=== PATIENT | male | born 1950 | race Caucasian/White ===

== ENCOUNTER 2024-05-04 09:05 | Emergency (ER) | payer MEDICARE, SELFPAY ==
--- NOTE | ~2024-05-04 | XR_ITS ---
EXAMINATION: XR chest 2V DATE: 05/04/2024 09:52 INDICATION: Cough. TECHNIQUE: Frontal and lateral views of the chest were obtained. COMPARISON: None. FINDINGS: There is no pneumonia, pleural effusion, or pneumothorax. The heart size is normal. A 2 mm foreign body overlies right lower lung zone on the frontal view without correlate on the lateral radi ograph. IMPRESSION: 1. No acute cardiopulmonary disease. Reviewed, dictated and finalized at location A. /AIDS CARE NURSE
[2024-05-04 09:34] VITALS: BP 160/56; PULSE 57; RESP 20; TEMP 36.2; O2SAT 98
--- NOTE | 2024-05-04 10:05 | ED.URI ---
HPI - URI/Sore Throat General Chief Complaint: Upper Respiratory Infection Stated Complaint: congestion Time Seen by Provider: 05/04/24 10:05 Source: patient Mode of arrival: ambulatory Limitations: no limitations History of Present Illness HPI Narrative: 74-year-old male presents with complaint of cough, chest congestion for 8 days. Reports symptoms getting progressively worse with shortness breath on exertion. Has neb treatments from previous time he was sick that he has been doing daily. Taking raas-[id number]-sxutuzl cough medication with no relief. All systems reviewed and negative except as noted above. Related Data Home Medications ?Medication ?Instructions ?Recorded ?Confirmed ?Last Taken ?Type amiodarone 200 mg tablet mg 05/04/24 Unknown History amlodipine 5 mg tablet mg 05/04/24 Unknown History amlodipine 5 mg-benazepril 20 mg cap 05/04/24 Unknown History capsule atorvastatin 40 mg tablet mg 05/04/24 Unknown History rivaroxaban 20 mg tablet (Xarelto) mg 05/04/24 Unknown History triamterene 37.5 tablet 05/04/24 Unknown History mg-hydrochlorothiazide 25 mg tablet Allergies Allergy/AdvReac Type Severity Reaction Status Date / Time No Known Allergies Allergy Verified 05/04/24 09:38 Review of Systems Review of Systems: CONSTITUTIONAL: Denies fever, chills, or sweats. reports fatigue. EYES: Denies visual changes, redness, or discharge. ENT: Denies rhinorrhea, congestion, sore throat, or otalgia. CARDIOVASCULAR: Denies chest pain, palpitations, or edema. RESPIRATORY: Reports cough chest congestion and dyspnea with exertion. GASTROINTESTINAL: Denies abdominal pain, nausea, vomiting, or diarrhea. GENITOURINARY: Denies dysuria or hematuria. SKIN: Denies rash or itching. MUSCULOSKELETAL: Denies back pain, joint pain, or myalgia. NEUROLOGIC: Denies headache, numbness, or weakness. PSYCHIATRIC: Denies anxiety or depression. All other systems reviewed are negative, except as documented in HPI. PMFSH Comments At time of signature, agree with nursing past medical, surgical, social and family history. There is no relevant family history pertinent to the presenting complaint. Exam Narrative: GENERAL: This is a well-nourished, well-developed patient, Patient ill-appearing but in no acute distress HEAD: normocephalic, atraumatic. EYES: PERRL. Sclera clear/white. Vision is grossly intact. EARS: External ears normal, auditory canals clear and without drainage, TMs normal without perforation. Hearing grossly intact. NOSE: External nose normal with no obvious nasal discharge, nares without redness, no rhinorrhea. THROAT: Mucous membranes moist, posterior pharynx clear. NECK: Neck supple, non-tender without lymphadenopathy, masses or thyromegaly. CARDIOVASCULAR: Regular rate and rhythm without murmurs, gallops, or rubs. RESPIRATORY: Crackles throughout all lung walls on auscultation. Breath sounds equal bilaterally. No wheezes, rales, or rhonchi. SKIN: warm, Dry, intact with no suspicious lesions or rash, good texture and turgor. NEURO: awake, alert, and oriented to person, place and time. There were no obvious focal neurologic abnormalities. EXTREMITIES: No joint tenderness, effusion, or edema noted. Course Course Level of Care: Express Care Visit Vital Signs Vital signs: Vital Signs Temperature 36.2 C L 05/04/24 09:34 Pulse Rate 57 L 05/04/24 09:34 Respiratory Rate 20 05/04/24 09:34 Blood Pressure 160/56 H 05/04/24 09:34 Pulse Oximetry 98 05/04/24 09:34 Oxygen Delivery Room Air 05/04/24 09:34 Temperature 36.2 C L 05/04/24 09:34 Pulse Rate 57 L 05/04/24 09:34 Respiratory Rate 20 05/04/24 09:34 Blood Pressure 160/56 H 05/04/24 09:34 Pulse Oximetry 98 05/04/24 09:34 Oxygen Delivery Room Air 05/04/24 09:34 reviewed MDM - URI/Sore Throat MDM Narrative Medical decision making narrative: chest x-ray negative for pneumonia. Will prescribe antibiotic today as precaution due to patient's comorbidities, duration of symptoms and exam findings. Patient is aware of diagnosis, understands and agrees to treatment plan. Anticipatory guidance given. Patient agrees to follow-up as directed and is aware of reasons to seek care at the emergency department. Portions of this record may have been created with voice recognition software Differential Diagnosis Differential diagnosis: Likely upper respiratory infection, sinusitis, viral infection, bronchitis and other ( Pneumonia) Imaging Data My impression: Agree with radiologist Radiologist's impression: EXAMINATION: XR chest 2V DATE: 05/04/2024 09:52 INDICATION: Cough. TECHNIQUE: Frontal and lateral views of the chest were obtained. COMPARISON: None. FINDINGS: There is no pneumonia, pleural effusion, or pneumothorax. The heart size is normal. A 2 mm foreign body overlies right lower lung zone on the frontal view without correlate on the lateral radiograph. IMPRESSION: 1. No acute cardiopulmonary disease. Discharge Plan Discharge Clinical Impression: Acute bronchitis Patient Disposition: Home, Self-Care Condition: Stable Instructions: Antibiotic Form, Acute Bronchitis (ED) Additional Instructions: take medications as prescribed. take [id number] Mucinex as directed on packaging. Place cool mist humidifier in bedroom where you sleep. Take Tylenol every 6-8 hours as needed for pain and fever. Drink at least 64 oz of water a day. Follow-up your primary care physician if symptoms are not improving. Patient Language: Tamazight Prescriptions: New doxycycline hyclate 100 mg capsule 100 mg PO BID 7 Days Qty: 14 0RF benzonatate 200 mg capsule 200 mg PO TID PRN (Reason: cough) Qty: 20 0RF prednisone 20 mg tablet 40 mg PO DAILY 5 Days Qty: 10 0RF albuterol sulfate 90 mcg/actuation HFA aerosol inhaler 2 puff inhalation Q4-6H PRN (Reason: shortness of breath or wheezing) Qty: 8.5 0RF (DME) Aerochamber Plus Z Stat Spacer See Rx Instructions .Route Qty: 1 0RF Rx Instructions: As directed No Action atorvastatin 40 mg tablet amiodarone 200 mg tablet amlodipine 5 mg tablet amlodipine-benazepril 5-20 mg capsule triamterene-hydrochlorothiazid 37.5-25 mg tablet Xarelto 20 mg tablet Follow-up/Referrals: UNKNOWN,DOCTOR [Primary Care Provider] - Time of Disposition: 10:15
--- OUTSIDE RECORDS SUMMARY | 2024-05-11 16:01 | XMS_ITS ---
Author Organization [facility] Address [address] [place] [address] Care Team Providers Care Rehab Director Name Role Phone Patient, Patient Primary Care Provider Mj Flowers [facility] [phone] REASON FOR VISIT Flexible Sigmoidoscopy Encounters Encounter Location Date Provider Diagnosis [facility] [place] [place] [address] [place] [address] 01/29/2024 Mj Noland Radiation proctitis K62.7 Assessments Encounter Date Diagnosis (ICD Code) Assessment Notes Treatment Notes Treatment Clinical Notes Section Notes 01/29/2024 Radiation proctitis (ICD-10 - K62.7) Plan Of Treatment No Information Progress Notes * DANGMARYURI RACHELSDOB:[birth year] (73 yo M)Acc No.[id number]:01/29/2024 Patient:?MARYURI DANG Provider:?Mj Noland MD :1950???Age:73 Y???Sex:Male Gal[place] e:01/29/2024 Address:[address] [place], [place] Pcp:Patient Patient * * [facility] Sign off status: Completed Addendum: * ? true * Provider:?Mj Noland MD Date:? 024 Generated for Printi ng/Faxing/eTransmitting on:?05/11/2024 03:01 PM [facility]
--- OUTSIDE RECORDS SUMMARY | 2024-05-11 16:01 | XMS_ITS ---
Author Organization [facility] Address [address] [place] [address] Care Team Providers Care Privacy Manager Name Role Phone Patient, Patient Primary Care Provider Unavailab M[facility] [phone] Encounters Encounter Location Date Provider Diagnosis [facility] [address] [place] [address] 01/23/2024 Mj Noland Plan Of Treatment No Information Progress Notes * MARYURI DANGSDOB:[birth year] (73 yo M)Acc No.[id number]:01/23/2024 Patient:?DANGMARYURI :1950???Age:73 Y???Sex:Male Address:[address] [place] [address] * true * Date:? Generated for [place] frankie/Sara/eTransmitting on:?05/11/2024 03:01 PM MST
--- OUTSIDE RECORDS SUMMARY | 2024-05-11 16:01 | XMS_ITS | Patient Health Record ---
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 Name Role Phone Patient, Patient Primary Care Provider Mj Flowers Unavailable [phone] Allergies No Known Allergies Reason For Referral No Information Medications Medication SIG (Take, Route, Frequency, Duration) Notes Start Date End Date Status Atorvastatin Calcium 40 MG Oral for 90 Days Active Tamsulosin HCl 0.4 MG Oral for 90 Days Active amLODIPine Besylate 5 MG Oral for 90 Days Active Amiodarone HCl 200 MG Oral for 90 Days Active Vital Signs Height 67 in 02/13/2024 Weight 220 lbs 02/13/2024 BMI 34.45 kg/m2 02/13/2024 Encounters Encounter Location Date Provider Diagnosis [facility] [address] [place] [address] 12/12/2023 Mj Noland Anal pain K62.89 ; Hemorrhoids, internal K64.8 and Hemorrhage of anus and rectum K62.5 [facility] [address] [place] [address] 12/26/2023 Mj Noland Other hemorrhoids K64.8 [facility] [address] [place] [address] 01/16/2024 Mj Noland Other hemorrhoids K64.8 [facility] [address] [place] [address] 01/21/2024 Mj Noland Other hemorrhoids K64.8 ; Radiation proctitis K62.7 ; Anal bleeding K62.5 and External hemorrhoids with complication K64.4 [facility] [address] [place] [address] 01/29/2024 Mj Noland Radiation proctitis K62.7 [facility] [address] [place] [address] 02/13/2024 Mj Noland Radiation proctitis K62.7 [facility] [address] [facility] [place] [address] 01/21/2024 Mj Noland [facility] [address] [place] [address] 01/23/2024 Mj Noland Assessments Encounter Date Diagnosis (ICD Code) Assessment Notes Treatment Notes Treatment Clinical Notes Section Notes 12/26/2023 Other hemorrhoids (ICD-10 - K64.8) Hemorrhoid banding procedure was performed in the office today. Pre-and post procedure instructions were given to the patient. Also patient was advised if the bleeding persists then to follow back and may need a further intervention on a possible colonoscopy evaluation . Patient understands this and all questions were answered. 01/16/2024 Other hemorrhoids (ICD-10 - K64.8) Follow-up hemorrhoid banding procedure was performed in the office today.Consent was obtained verbally. Patient wants to proceed with the follow-up hemorrhoid banding procedure. Pre-and post procedure instructions were given to the patient. Also patient was advised if the bleeding persists then to follow back and may need a further intervention on a possible colonoscopy evaluation . Patient understands this and all questions were answered. 01/21/2024 Radiation proctitis (ICD-10 - K62.7) I have a detailed discussion with the patient and my concern is that the bleeding could be from hemorrhoids or radiation proctitis. I discussed that he may need a flexible sigmoidoscopy and possible argon plasma coagulation for radiation proctitis if any bleeders are seen and also a possible hemorrhoid ligation if the bleeding is noticed from the hemorrhoids. 01/21/2024 Other hemorrhoids (ICD-10 - K64.8) Patient has internal and external hemorrhoids and has failed the medical and conservative management. I have discussed different surgical options with the patient for the hemorrhoids which include banding, excision of hemorrhoids, stapling ,THD Transanal Hemorrhoidal Dearterization . I have discussed the hemorrhoid ligation procedure with the patient. Hemorrhoid ligation can be performed with Hemorrhoid rubber banding or ligation with sutures. Also sometimes hemorrhoid excision may be needed depending upon the size of the hemorrhoid or for any possible intraoperative bleeding and patient understands that. I have discussed that pain is the most common problem after procedure and that may be significant for first one to two weeks and may restrict some activities based on the lifestyle but after that the pain slowly and gradually improves as the symptoms continue to improve. Minimal bleeding is expected and may happen for up to 4 to 6 weeks after surgery and usually up to less than half a cup a day especially after bowel movements. I also advised to continue with the high-fiber diet after hemorrhoidectomy and take some stool softeners which are usually prescribed after the surgery and local lidocaine cream may be required for pain control. Also discussed the possible risks and complications like bleeding, complications and risks from anesthesia, allergic reactions, risk of having a heart or lung problems and need for hospitalization and further management. I have also discussed the other post operative possible complications like anal stenosis and risk of incontinence/Leakag e and possibility of infection and excessive bleeding . If the excessive bleeding happens sometimes the rectal examination under anesthesia or observation in the hospital may be required. Also a detailed handout of the postoperative expectations was given to the patient and all the questions were answered. 12/12/2023 Anal pain (ICD-10 - K62.89) 01/29/2024 Radiation proctitis (ICD-10 - K62.7) 02/13/2024 Radiation proctitis (ICD-10 - K62.7) I discussed the findings with the patient as he had radiation proctitis treated with Argon plasma coagulation.. 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 01/21/2024 Anal bleeding (ICD-10 - K62.5) . 12/12/2023 Hemorrhage of anus and rectum (ICD-10 - K62.5) 01/21/2024 External hemorrhoids with complication (ICD-10 - K64.4) 12/12/2023 Other Patient has internal hemorrhoids and has failed the medical and conservative management and continues to have symptoms. I had a detailed discussion with the patient regarding the hemorrhoids and the management. In my opinion hemorrhoid banding will be a good option for the patient . I have discussed the hemorrhoid banding procedure in detail including follow-up instructions and in my opinion , if the medical management fails, as discussed , then hemorrhoid banding is a more conservative procedure to help relieve the symptoms. I also discussed with the patient that hemorrhoid banding may also fail and patients may continue to have symptoms of bleeding and discomfort and in that case surgical intervention may be required with the excision of the hemorrhoids. Rubber band ligation is the most widely used procedure. It is successful in approximately 70 to 80 percent of patients. Rubber bands or rings are placed around the base of an internal hemorrhoid. As the blood supply is restricted, the hemorrhoid shrinks and degenerates over several days. Many patients report a sense of tightness after the procedure, which may improve with warm sitz baths. Patients are encouraged to use fiber supplements to avoid constipation. Delayed bleeding may occur when the rubber band falls off, usually two to four days after the procedure. In some cases, a raw and sore area develops five to seven days following the procedure. Other less common complications of rubber band ligation include severe pain, thrombosis of other hemorrhoids, and localized infection or pus formation (abscess). Rubber band ligation rarely causes serious complications. I also explained that usually 2 to 3 sessions for the hemorrhoid rubber banding are needed At about three weeks interval. I further gave educational instructions in regards to the hemorrhoids As below and also advise the patient to follow the educational material on my website : Patient has internal hemorrhoids . I have a detailed discussed with the patient regarding the hemorrhoids and different type of hemorrhoids along with the treatment. I advised diet and other lifestyle modifications. My recommendation is to eat at least 30 g of fiber every day and I gave her educational instructions in regards to this. I discussed Different options as below INITIAL HEMORRHOID TREATMENT There are measures you can take at home to relieve hemorrhoid symptoms . One of the most important steps in treating hemorrhoids is avoiding constipation (hard or infrequent stools). Hard stools can also lead to rectal bleeding and/or a tear in the anus, called an anal fissure. In addition, pushing and straining to move your bowels can worsen existing hemorrhoids and increase the risk of developing new hemorrhoids. I advised the patient to do not straying down or sitting longer during the bowel movements. Fiber supplements - Increasing fiber in your diet is one of the best ways to soften your stools. Fiber is found in fruits and vegetables. The recommended amount of dietary fiber is 20 to 35 grams per day . Several fiber supplements are available, including psyllium (sample brand names: Konsyl, Metamucil), methylcellulose (sample brand name: Citrucel), polycarbophil (sample brand name: FiberCon), and wheat dextrin (Benefiber). Start with a small amount and increase slowly to avoid side effects. Laxatives - If increasing fiber does not relieve your constipation, or if side effects of fiber are intolerable, you can try a laxative which are available over the counter As needed . Warm sitz baths - During a sitz bath, you soak the rectal area in warm water for 10 to 15 minutes two to three times daily. Sitz baths are available in most drugstores. It is also possible to use a bathtub and sit in 2 to 3 inches of warm water. Do not add soap, bubble bath, or other additives in the water. Sitz baths work by improving blood flow and relaxing the muscle around the anus, called the internal anal sphincter. Topical treatments - Various creams and suppositories are available to treat hemorrhoids, and many are available without a prescription. Pain-relieving creams and hydrocortisone rectal suppositories may help relieve pain, inflammation, and itching, at least temporarily. You should not use hemorrhoid creams and suppositories, particularly hydrocortisone, for longer time unless advised by the physician.. MINIMALLY INVASIVE TREATMENT If you have bothersome hemorrhoids after using conservative measures, you may want to consider a minimally invasive procedure. Most procedures are performed as a day surgery. The following procedures are intended for treatment of internal hemorrhoids. Rubber band ligation - Rubber band ligation is the most widely used procedure. It is successful in approximately 70 to 80 percent of patients. Rubber bands or rings are placed around the base of an internal hemorrhoid. As the blood supply is restricted, the hemorrhoid shrinks and degenerates over several days. Many patients report a sense of tightness after the procedure, which may improve with warm sitz baths. Patients are encouraged to use fiber supplements to avoid constipation. Delayed bleeding may occur when the rubber band falls off, usually two to four days after the procedure. In some cases, a raw and sore area develops five to seven days following the procedure. Other less common complications of rubber band ligation include severe pain, thrombosis of other hemorrhoids, and localized infection or pus formation (abscess). Rubber band ligation rarely causes serious complications. Laser, infrared, or bipolar coagulation - These methods involve the use of laser or infrared light or heat to destroy internal hemorrhoids. Sclerotherapy - During sclerotherapy, a chemical solution is injected into hemorrhoidal tissue, causing the tissue to break down and form a scar. Sclerotherapy may be less effective than rubber band ligation. HEMORRHOID SURGERY If you continue to have symptoms from hemorrhoids (such as bleeding, pain, or prolapse) despite medical therapies or office-based procedures, you may require surgery. Options for surgical treatment for hemorrhoids include hemorrhoidectomy (surgically removing excess hemorrhoidal tissues), which works for both internal and external hemorrhoids, and other procedures (eg, stapled hemorrhoidopexy and hemorrhoidal arterial ligation), which only work for internal hemorrhoids. This document was created using electronic dictation software ----- Although this document has been reviewed for content accuracy, it may contain errors of spelling and grammar which may inadvertently influence the substance and meaning of the document. Please contact our office if any clarification is needed. 12/26/2023 Other Hemorrhoid Bann ing procedure was performed today in the office and I advise the patient to hold the xarelto for next 3 days and be more cautious while restarting it and if he has any significant leading then he should call me back and stop the Xarelto and if the bleeding is significant then go to the emergency room. 01/21/2024 Other I further discuss the details of the hemorrhoids management and medical and surgical management as below And provided education and also advise the patient to follow at my website for education : . I have a detailed discussed with the patient regarding the hemorrhoids and different type of hemorrhoids along with the treatment. I advised diet and other lifestyle modifications. My recommendation is to eat at least 30 g of fiber every day and I also gave educational instructions in regards to this. Also local medications were prescribed and discussed. I discussed Different options as below INITIAL HEMORRHOID TREATMENT There are measures you can take at home to relieve hemorrhoid symptoms . One of the most important steps in treating hemorrhoids is avoiding constipation (hard or infrequent stools). Hard stools can also lead to rectal bleeding and/or a tear in the anus, called an anal fissure. In addition, pushing and straining to move your bowels can worsen existing hemorrhoids and increase the risk of developing new hemorrhoids. I advised the patient to do not straying down or sitting longer during the bowel movements. Fiber supplements - Increasing fiber in your diet is one of the best ways to soften your stools. Fiber is found in fruits and vegetables. The recommended amount of dietary fiber is 20 to 35 grams per day . Several fiber supplements are available, including psyllium (sample brand names: Konsyl, Metamucil), methylcellulose (sample brand name: Citrucel), polycarbophil (sample brand name: FiberCon), and wheat dextrin (Benefiber). Start with a small amount and increase slowly to avoid side effects. Laxatives - If increasing fiber does not relieve your constipation, or if side effects of fiber are intolerable, you can try a laxative which are available over the counter As needed . Warm sitz baths - During a sitz bath, you soak the rectal area in warm water for 10 to 15 minutes two to three times daily. Sitz baths are available in most drugstores. It is also possible to use a bathtub and sit in 2 to 3 inches of warm water. Do not add soap, bubble bath, or other additives in the water. Sitz baths work by improving blood flow and relaxing the muscle around the anus, called the internal anal sphincter. Topical treatments - Various creams and suppositories are available to treat hemorrhoids, and many are available without a prescription. Pain-relieving creams and hydrocortisone rectal suppositories may help relieve pain, inflammation, and itching, at least temporarily. You should not use hemorrhoid creams and suppositories, particularly hydrocortisone, for longer time unless advised by the physician.. MINIMALLY INVASIVE TREATMENT If you have bothersome hemorrhoids after using conservative measures, you may want to consider a minimally invasive procedure. Most procedures are performed as a day surgery. The following procedures are intended for treatment of internal hemorrhoids. Rubber band ligation - Rubber band ligation is the most widely used procedure. It is successful in approximately 70 to 80 percent of patients. Rubber bands or rings are placed around the base of an internal hemorrhoid. As the blood supply is restricted, the hemorrhoid shrinks and degenerates over several days. Many patients report a sense of tightness after the procedure, which may improve with warm sitz baths. Patients are encouraged to use fiber supplements to avoid constipation. Delayed bleeding may occur when the rubber band falls off, usually two to four days after the procedure. In some cases, a raw and sore area develops five to seven days following the procedure. Other less common complications of rubber band ligation include severe pain, thrombosis of other hemorrhoids, and localized infection or pus formation (abscess). Rubber band ligation rarely causes serious complications. Laser, infrared, or bipolar coagulation - These methods involve the use of laser or infrared light or heat to destroy internal hemorrhoids. Sclerotherapy - During sclerotherapy, a chemical solution is injected into hemorrhoidal tissue, causing the tissue to break down and form a scar. Sclerotherapy may be less effective than rubber band ligation. HEMORRHOID SURGERY Options for surgical treatment for hemorrhoids include hemorrhoidectomy (surgically removing excess hemorrhoidal tissues), which works for both internal and external hemorrhoids, and other procedures (eg, stapled hemorrhoidopexy and hemorrhoidal arterial ligation), which only work for internal hemorrhoids. 02/13/2024 Other This document was created using electronic dictation software ----- Although this document has been reviewed for content accuracy, it may contain errors of spelling and grammar which may inadvertently influence the substance and meaning of the document. Please contact our office if any clarification is needed. Plan Of Treatment No Information Insurance Providers Payer Name Payer Address Payer Phone Subscriber Number Group Number Insured Name Patient Relationship to Insured Coverage Start Date Coverage End Date Medicare Part B [address] [place] [address] [id number] CLAIRE STACY Self - patient is the insured [facility] Medicare Supplement [address] [place] [address] [phone] [id number] PLAN N CLAIRE STACY Self - patient is the insured Medical (General) History Medical History History ICD Code New Patient intake- Medical History: admits to the following: A-fib,bleeding problems,High Cholesterol,Hypertension Cancer: Prostate
--- OUTSIDE RECORDS SUMMARY | 2024-05-11 16:01 | XMS_ITS ---
Author Organization [employer] Address [address] [place] [address] Care Team Providers Care Core Carrier Name Role Phone Patient, Patient Primary Care Provider Unavailab [facility] [phone] Allergies No Known Allergies REASON FOR VISIT Follow Up Medications Medication SIG (Take, Route, Frequency, Duration) Notes Start Date End Date Status Atorvastatin Calcium 40 MG Oral for 90 Days Active Canasa 1000 MG 1 suppository at bed time Rectal Once a day for 30 day(s) 01/21/2024 02/20/2024 Active Tamsulosin HCl 0.4 MG Oral for 90 Days Active amLODIPine Besylate 5 MG Oral for 90 Days Active Amiodarone HCl 200 MG Oral for 90 Days Active Vital Signs Height 67 in 02/13/2024 Weight 220 lbs 02/13/2024 BMI 34.45 kg/m2 02/13/2024 Encounters [facility]counter [facility] [address] [place] [address] 02/13/2024 Mj Noland Radiation proctitis K62.7 Assessments Encounter Date Diagnosis (ICD Code) Assessment Notes Treatment Notes Treatment Clinical Notes Section Notes 02/13/2024 Radiation proctitis (ICD-10 - K62.7) I discussed the findings with the patient as he had radiation proctitis treated with Argon plasma coagulation.. No further surgical intervention is needed 02/13/2024 Other This document was created using electronic dictation software ----- Although this document has been reviewed for content accuracy, it may contain errors of spelling and grammar which may inadvertently influence the substance and meaning of the document. Please contact our office if any clarification is needed. Plan Of Treatment Treatment Notes Assessment Notes Radiation proctitis I discussed the find ings with the patient as he had radiation proctitis treated with Argon plasma coagulation.. No further surgical intervention is needed Other This document was created using electronic dictation software ----- Although this document has been reviewed for content accuracy, it may contain errors of spelling and grammar which may inadvertently influence the substance and meaning of the document. Please contact our office if any clarification is needed. Progress Notes * MARYURI DANGSDOB:[birth year] (73 yo M)Acc No.[id number]:02/13/2024 Progress Notes Patient:?MARYURI DANG S Provider:?Mj Noland MD :1950???Age:73 Y???Sex:Male Galen e:02/13/2024 Address:[facility] [place], [facility] Pcp:Patient Patient Subjective: * Chief Complaints: * ???Follow Up * HPI: ???Follow-up:? Patient presented for follow up. He has no rectal bleeding and has been doing very good. He has no complaints. * ROS:?ColoRectal:?Denies?Weight loss/Gain.?Denies?Fever.?Denies?Fatigue.?Denies?Hearing Change.?Denies?Nose bleeds.?Denies?Visual Change.?Denies?Sore throat.?Denies?Chest Pain.?Denies?Shortness of breath.?Denies?Wheezing.? * Medical History:? * Surgical History:?No Surgica l History documented. * Hospitalization/Major Diagno stic Procedure:?No Hospitalization History. * Family History:?Mother: Hear t Disease,High Cholesterol,Diabetes.?Father: Heart Disease,High Cholesterol.?Siblings: Heart Disease,High Cholesterol.? Denies family h/o Colon/Rectal cancer. * Social History:?Social Questions Intake:?Tobacco Use: current. Alcohol Use: current. Have you used drugs for anything other than medical reason in the past 12 mo?: No. Do you use Marijuana?: None. * Medications:?TakingAmiodaron e HCl 200 MG Tablet Oral Tamsulosin HCl 0.4 MG Capsule Oral amLODIPine Besylate 5 MG Tablet Oral Atorvastatin Calcium 40 MG Tablet Oral Canasa 1000 MG Suppository 1 suppository at bedtime Rectal Once a day, stop date 02/20/2024Medication List reviewed and reconciled with the patientTaking Amiodarone HCl 200 MG Tablet Oral Taking Tamsulosin HCl 0.4 MG Capsule Oral Taking amLODIPine Besylate 5 MG Tablet Oral Taking Atorvastatin Calcium 40 MG Tablet Oral Taking Canasa 1000 MG Suppository 1 suppository at bedtime Rectal Once a day, stop date 02/20/2024Medication List reviewed and reconciled with the patient * Allergies:?N.K.D.A.no[Allerg ies Verified] * Implants:? Objective: * Vitals:?Ht: 67 in, Wt:220 lb s, BMI:34.45 Index. 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 non-labored respirations .?ABDOMEN:?soft, nontender, nondistended, no masses palpable.?INCISION:?..?RECTAL?..?MUSCULOSKELETAL:?no swelling or deformity.?EXTREMITIES:?no clubbing, cyanosis, or edema.?NEUROLOGIC:?nonfocal, alert and oriented, gait normal.?PSYCH:?alert, oriented, good eye contact, mood/affect full range.? Assessment: * Assessment: 1.?Radiation proctitis - K62 .7 (Primary)? Plan: * Treatment: 2.?Others? Notes: This document was created using electronic dictation software ----- Although this document has been reviewed for content accuracy, it may contain errors of spelling and grammar which may inadvertently influence the substance and meaning of the document. Please contact our office if any clarification is needed. ?? * Procedure Codes:? * Preventive Medicine:? ??MIPS:?Smoking?Type of Tobacco Use Cessation Counseling provided?Smoking cessation education.? * * [facility] Sign off status: Completed true * Provider:?Mj Noland MD Date:? 024 Generated for Oh david/Sara/Keila on:?05/11/2024 03:01 PM [facility] History and Physical Notes * HPI (History of Present Illness) Category Sub-Category Detail Notes Category Not es Follow-up Patient present ed for follow up. He has no rectal bleeding and has been doing very good. 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 PSYCH: alert, oriented, goo d eye contact, mood/affect full range ORAL CAVITY: INCISION: . HEENT Normal cephalic , At raumatic
--- OUTSIDE RECORDS SUMMARY | 2024-05-11 16:02 | XMS_ITS | Clinical Summary ---
Author Organization [facility] Address Unknown Care Team Providers Care Business Analytics Specialist Name Role Phone Unavailable Primary Care Physician Unavailab le Medications Medication Dose Frequency Directions Start Date End Galen e Xarelto 90 amlodipine-benazepril 90 amiodarone 90 triamterene-hydrochlorothiazid 36 atorvastatin 90 Problems Problem Status Start Date End Date Change in bowel habits (R19.4 - ICD-10) Active Rectal bleeding (K62.5 - ICD-10) Active asthma (null - null) Atrial Fibrillation (I48.91 - ICD-10) Hyperlipidemia (E78.5 - ICD-10) hypertension (I10 - ICD-10) Prostate Cancer (D07.5 - ICD-10) Encounters Encounter Performer Performer Role Encounter Diagnoses Location Date Ambulatory Encounter [id number] - Amor Sonido [address] 8 12:05 pm PST Ambulatory Encounter [id number] Sonido Wan [facility] 9 11:23 am PST Ambulatory Encounter [id number] Sonido Wan [id number] - Francia Omalley [facility] 4 01:54 pm PDT First Visit [id number] - Javier White Change in bowel habits Rectal bleeding [facility] 4 09:00 am PDT Procedures Procedure Date knee Pre-Procedure Call 10/02/2023 12:00 am PDT Plan of Care Planned Activity Planned Date Miralax-Gatorade Preparation Instruction s Risks and benefits statement: This patient has been evalua janet and is a candidate for an Outpatient Surgery Center. Colonoscopy Social History Observation Value Start Date End Date Marital Status Number of Previous Marriages Number of Gestations 0 Number of Pregnancies 0 Number of Abortions 0 Tobacco Use Vital Signs Vital Sign Reading Time Taken Pulse 75 /min 10/01/2023 09:22 am PDT Rhythm Regular 10/01/2023 09:22 am PDT Body Temperature 98.4 [degF] 10/01/2023 09:2 2 am PDT Respirations /min 10/01/2023 09:22 am PDT Oxygen saturation % 10/01/2023 09: 22 am PDT [id number] mmHg 10/01/2023 09:22 am PDT Height 67 in 10/02/2023 01:54 pm PDT Weight 0 lbs 10/02/2023 01:54 pm PDT BMI (Body Mass Index) kg/m2 10/02/2023 01:54 pm PDT BP Systolic 166 mm[hg] 10/01/2023 09:22 am PDT BP Diastolic 72 mm[hg] 10/01/2023 09:22 am PDT Insurances Policy / Member / Group Numbers Plan Details Company Policy Gregory [id number] / / Plan Type:[facility] Coverage Type:Primary Medicare [place] [id number] [address] [id number] / / Plan Type:MCRSUP Coverage Type:Secondary [facility] Medicare Supplement [id number] [address]
--- OUTSIDE RECORDS SUMMARY | 2024-05-11 16:02 | XMS_ITS | Encounter Summary ---
Author Organization [facility] Address [address] [place] [address] Care Team Providers Care Records Management Analyst Name Role Phone Lanre Burrell MD Primary Care Provider [phone] Encounter Details Date Type Department Care Team (Late st Contact Info) Description 12/20/2022 Orders Only RADIOLOGY VIEW ONLY [address] [place] [address] [place] [address] [place], [place] [id number] Social History Tobacco Use Types Packs/Day Years Used Date Smoking Tobacco: Former Cigarettes Q uit: 09/17/1998 Alcohol Use Standard Drinks/Week Comments Yes 0 (1 standard drink = 0.6 oz pur e alcohol) 2-3 GLASSES WINE/WEEK Sex and Gender Information Value Date Recorded Sex Assigned at Not on file Gender Identity Not on file Sexual Orientation Not on file documented as of this encounter Plan of Treatment Not on file documented as of this encounter Procedures Procedure Name Priority Date/Time Associated Diagnosis Comments PET EXTERNAL RESULT 12/20/2022 1 1:00 AM [facility] documented in this encounter Results * PET External Result (12/20/2022 11:00 AM [facility]) Anatomical Region Laterality Modality Nuclear Medicine 12/20/2022 1:05 PM [facility] Impressions 12/20/2022 1:05 PM [facility] IMPRESSION: 1. Stable to slightly increased nonspecific low level tracer activity in the prostate with numerous brachytherapy seeds present. 2. No evidence of tracer avid regional nodes or distant metastases. Stable size of left upper retroperitoneal soft tissue density nodule or lymph node devoid of tracer uptake. ORDERED BY: SAMANTHA CASTILLO, [id number] Performed at [facility] ??Electronically signed by Dr. MANUEL ELLINGTON MD SMIL ID: [id number] Date of Service: 12/20/2022 Narrative 12/20/2022 1:05 PM [facility] PET/CT BODY SCAN F-18 PIFLUFOLASTAT HISTORY: Prostate cancer. COMPARISON: PET/CT 01/04/2022 TECHNIQUE: A PET/CT study was performed from the head to the mid thigh after the intravenous administration of 9.4 mCi F-18 Pylarify, approximately 60 minute uptake time. The CT portion of the PET/CT study was used for the purposes of attenuation correction and image fusion only, and is not to be considered equivalent to a dedicated diagnostic CT scan. Radiopharmaceutical: 9.4 mCi F18 IV : PYLARIFY FINDINGS: HEAD No suspicious intracranial tracer uptake. No enlarged or tracer avid lymph nodes in the neck. Lack of normal tracer uptake in the left parotid gland. Otherwise, normal glandular tracer biodistribution. Nonspecific low-level tracer uptake associated with the left face on image 56, decreased from prior exam and without definitive anatomic correlate. CHEST: No tracer avid pulmonary nodules or masses. No tracer avid or enlarged thoracic lymph nodes. Heart size is top normal. No focal infiltrate or pleural effusion. ABDOMEN Stable size of soft tissue density nodule or node in the upper retroperitoneum, measuring about 0.9 cm and devoid of tracer uptake. No enlarged or tracer avid lymph nodes in the abdomen or pelvis. Low-level nonspecific tracer activity is again seen in the prostate with SUV max of 3.9 on image 275, previously 3, with brachytherapy seeds again noted throughout the gland. Otherwise normal tracer biodistribution in the abdomen and pelvis. Diverticulosis without evidence of acute diverticulitis. MUSCULOSKELETAL AND EXTREMITIES: No tracer avid or other suspicious osseous lesions. Multilevel degenerative changes of the cervical and lumbar spine. Procedure Note RADIOLOGY EXTERNAL READS - 12/20/2022 PET/CT BODY SCAN F-18 PIFLUFOLASTAT HISTORY: Prostate cancer. COMPARISON: PET/CT 01/04/2022 TECHNIQUE: A PET/CT study was performed from the head to the mid thighafter the intravenous administration of 9.4 mCi F-18 Pylarify, approximately 60minute uptake time. The CT portion of the PET/CT study was used for the purposes ofattenuation correction and image fusion only, and is not to be considered equivalent to adedicated diagnostic CT scan. Radiopharmaceutical: 9.4 mCi F18 IV : PYLARIFY FINDINGS: HEAD No suspicious intracranial tracer uptake. No enlarged or tracer avid lymphnodes in the neck. Lack of normal tracer uptake in the left parotid gland. Otherwise,normal glandular tracer biodistribution. Nonspecific low-level tracer uptake associatedwith the left face on image 56, decreased from prior exam and without definitive anatomiccorrelate. CHEST: No tracer avid pulmonary nodules or masses. No tracer avid or enlargedthoracic lymph nodes. Heart size is top normal. No focal infiltrate or pleuraleffusion. ABDOMEN Stable size of soft tissue density nodule or node in the upperretroperitoneum, measuring about 0.9 cm and devoid of tracer uptake. No enlarged or tracer avid lymphnodes in the abdomen or pelvis. Low-level nonspecific tracer activity is again seen inthe prostate with SUV max of 3.9 on image 275, previously 3, with brachytherapy seedsagain noted throughout the gland. Otherwise normal tracer biodistribution in theabdomen and pelvis. Diverticulosis without evidence of acute diverticulitis. MUSCULOSKELETAL AND EXTREMITIES: No tracer avid or other suspicious osseous lesions. Multileveldegenerative changes of the cervical and lumbar spine. IMPRESSION: 1. Stable to slightly increased nonspecific low level tracer activity inthe prostate with numerous brachytherapy seeds present. 2. No evidence of tracer avid regional nodes or distant metastases. Stablesize of left upper retroperitoneal soft tissue density nodule or lymph node devoid oftracer uptake. ORDERED BY: SAMANTHA CASTILLO, [id number] Performed at [facility] Electronically signed by Dr.TREVOR RKAEL [facility] ID: [id number] Date of Service: 12/20/2022 Samantha Castillo MD IMG NM ORDERABL ES documented in this encounter Visit Diagnoses Not on filedocumented in this encounter Care Teams Records Management Analyst Relationship Specialty Start Date End Date Lanre Burrell MD PCP - General Internal Medicine 09/24/16 documented as of this encounter
--- OUTSIDE RECORDS SUMMARY | 2024-05-11 16:02 | XMS_ITS | Clinical Summary ---
Author Organization [facility] Address Unknown Care Team Providers Care Taper Machine Name Role Phone Unavailable Primary Care Physician Unavailab le Medications Medication Dose Frequency Directions Start Date End Galen e Xarelto 90 amlodipine-benazepri l 90 amiodarone 90 triamterene-hydrochl orothiazid 36 Anucort-HC 20 suppository at bedtime Insert 1 suppository into rectum at bedtime 10/14/2023 atorvastatin 90 Problems Problem Status Start Date End Date Change in bowel habits (R19.4 - ICD-10) Active Diverticulosis of large inte marianela without perforation or abs (K57.30 - ICD-10) Active 10/10/2023 Evaluation of unexplained GI bleeding (null - null) Ac tive 10/10/2023 Other specified diseases of intestine (K63.89 - ICD-10 ) Active 10/10/2023 Polyp of colon (K63.5 - ICD-10) Active Rectal bleeding (K62.5 - ICD-10) Active asthma (null - null) Atrial Fibrillation (I48.91 - ICD-10) Hyperlipidemia (E78.5 - ICD-10) hypertension (I10 - ICD-10) Prostate Cancer (D07.5 - ICD-10) Results * [facility] Pathology Component Value Range Date 10/10/2023 12:0 0 am PDT Encounters Encounter Performer Performer Role Encounter Diagnoses Location Date Ambulatory Encounter [id number] - Sonido Chinchilla [address] 8 12:05 pm PST Ambulatory Encounter [id number] - Sonido Chinchilla [address] 9 11:23 am PST Ambulatory Encounter [id number] - Sonido Chinchilla [id number] - Francia Omalley [facility] 4 01:54 pm PDT First Visit [id number] - Javier White Change in bowel habits Rectal bleeding [address] 4 09:00 am PDT Colonoscopy [id number] - Christopher Javier Diverticulosis of large intestine without perforation or abs Evaluation of unexplained GI bleeding Other specified diseases of intestine Polyp of colon [facility] 4 08:00 am PDT Advance Directives Directive Description Verification Lina Silvestre , 10/10/2023 Procedures Procedure Date cardioversion knee scope Pre-Procedure Call 10/02/2023 12:00 am PDT Plan of Care Planned Activity Planned Date Resume taking current medications Please call office if not no tified of biopsy results in one week. Miralax-Gatorade Preparation Instruction s Risks and benefits statement: Written discharge instructions were prov ided to the patient The signs and symptoms of po tential delayed complications were discussed with the patient Patient will be discharged to home This patient has been george gonzales and is a candidate for an Outpatient Surgery Center. Pathology Requisition - [facility] Return to normal activities tomorrow Resume previous diet as tolerated Follow-up with me as needed Colonoscopy in 5 years 10/09/2028 12:00 am PDT Colonoscopy Social History Observation Value Start Date End Date Marital Status Number of Previous Marriages Number of Gestations 0 Number of Pregnancies 0 Number of Abortions 0 Tobacco Use Vital Signs Vital Sign Reading Time Taken Pulse 55 /min 10/10/2023 08:32 am PDT Rhythm Regular 10/10/2023 08:32 am PDT Body Temperature [degF] 10/10/2023 08:3 2 am PDT Respirations 18 /min 10/10/2023 08:32 am PDT Oxygen saturation 96 % 10/10/2023 08: 32 am PDT [id number] mmHg 10/10/2023 08:32 am PDT Height 67 in 10/10/2023 06:44 am PDT Weight 252 lbs 10/10/2023 06:44 am PDT BMI (Body Mass Index) kg/m2 10/10/2023 06:44 am PDT BP Systolic 161 mm[hg] 10/10/2023 08:32 am PDT BP Diastolic 72 mm[hg] 10/10/2023 08:32 am PDT Insurances Policy / Member / Group Numbers Plan Details Company Policy Gregory [id number] / / Plan Type:MCR Coverage Type:Primary Medicare [place] [id number] [address] [id number] / / Plan Type:MCRSUP Coverage Type:Secondary UHC AARP Medicare Supplement [id number] [address]
--- OUTSIDE RECORDS SUMMARY | 2024-05-11 16:02 | XMS_ITS | Encounter Summary ---
Author Organization [facility] Address [address] [place] [address] Care Team Providers Care Power Station Operator Name Role Phone Lanre Burrell MD Primary Care Provider [phone] Reason for Referral * Ultrasound (Routine) - Closed Specialty Diagnoses / Procedures Referred By Mary t Referred To Contact Diagnoses Malignant neoplasm of prostate Procedures US Guided Intraoperative Study [facility] ULTRASONIC GUIDANCE, INTRAOPERATIVE Junior Ahumada MD [address] [place] [address] Referral ID Status Reason Start Date Expiration Date Visits Re quested Visits Authorized [id number] Closed 09/02/2016 03/01/2017 1 [facility] Encounter Details Date Type Department Care Team (Latest Contact Info) Description 09/02/2016 Transcribe Orders [facility] [address] [place], [place] [id number] Junior Ahumada MD [address] [place] [address] Malignant neoplasm of prostate (Primary Dx) Social History Tobacco Use Types Packs/Day Years Used Date Smoking Tobacco: Never Assessed Sex and Gender Information Value Date Recorded Sex Assigned at Not on file Gender Identity Not on file Sexual Orientation Not on file documented as of this encounter Plan of Treatment Not on file documented as of this encounter Results * US Guided Intraoperative Study (09/24/2016 10:58 AM [facility]) Anatomical Region Laterality Modality Ultrasound 09/24/2016 1:42 PM MST Narrative 09/24/2016 1:43 PM [facility] ULTRASOUND INTRAOPERATIVE STUDY HISTORY: ??Prostate cancer COMPARISON: ??None TECHNIQUE: ??Ultrasound guidance was provided in the operating room. FINDINGS: Ultrasound guidance was provided to performed implantation of brachytherapy seeds. ?? Procedure Note Michela Rodgers MD - 09/24/2016 ULTRASOUND INTRAOPERATIVE STUDY HISTORY: Prostate cancer COMPARISON: None TECHNIQUE: Ultrasound guidance was provided in the operating room. FINDINGS: Ultrasound guidance was provided to performed implantation ofbrachytherapy seeds. Junior Ahumada MD IMG US ORDERABLES documented in this encounter Visit Diagnoses Diagnosis Malignant neoplasm of prostate- Primary Malignant neoplasm of prostate documented in this encounter Care Teams Power Station Operator Relationship Specialty Start Date End Date Lanre Burrell MD PCP - General Internal Medicine 09/24/16 documented as of this encounter
--- OUTSIDE RECORDS SUMMARY | 2024-05-11 16:02 | XMS_ITS | Clinical Summary ---
Author Organization [facility] Address Unknown Care Team Providers Care Digital Advertising Analyst Name Role Phone Unavailable Primary Care Physician [...] Polyp of colon (K63.5 - ICD-10) Active 4 Rectal bleeding (K62.5 - ICD-10) Active asthma (null - null) Atrial Fibrillation (I48.91 - ICD-10) Hyperlipidemia (E78.5 - ICD-10) hypertension (I10 - ICD-10) Prostate Cancer (D07.5 - ICD-10) Encounters Encounter Performer Performer Role Encounter Diagnoses Location Date Ambulatory Encounter [id number] Sonido Wan [address] 8 12:05 pm PST Ambulatory Encounter [id number] Sonido Wan [address] 9 11:23 am PST Ambulatory Encounter [id number] Sonido Wan [id number] - Francia Omalley [facility] 4 01:54 pm PDT First Visit [id number] Javier Hinkle Change in bowel habits Rectal bleeding [facility] 4 09:00 am PDT Colonoscopy [id number] Trujillo Diverticulosis of large intestine without perforation or abs Evaluation of unexplained GI bleeding Other specified diseases of intestine Polyp of colon [facility] 08:00 am PDT Advance Directives Directive Description [...] Pathology The patient has a contact number availab norris for emergencies Return to normal activities tomorrow Resume previous diet as tolerated Follow-up with me as needed Colonoscopy in 5 years 10/09/2028 12:00 am PDT Colonoscopy Social History Observation Value Start Date End Date Marital Status Number of Previous Marriages Number of Gestations 0 Number of Pregnancies 0 Number of Abortions 0 Tobacco Use Vital Signs Vital Sign Reading Time Taken Pulse 57 /min 10/10/2023 08:12 am PDT Rhythm Regular 10/10/2023 08:12 am PDT Body Temperature [degF] 10/10/2023 08:1 2 am PDT Respirations 16 /min 10/10/2023 08:12 am PDT Oxygen saturation 95 % 10/10/2023 08: 12 am PDT [id number] mmHg 10/10/2023 08:12 am PDT Height 67 in 10/10/2023 06:44 am PDT Weight 252 lbs 10/10/2023 06:44 am PDT BMI (Body Mass Index) kg/m2 10/10/2023 06:44 am PDT BP Systolic 142 mm[hg] 10/10/2023 08:12 am PDT BP Diastolic 71 mm[hg] 10/10/2023 08:12 am PDT Insurances Policy / Member / Group Numbers Plan Details Company Policy Gregory [id number] / / Plan Type:MCR Coverage Type:Primary Medicare [place] [address] [address] [id number] / / Plan Type:MCRSUP Coverage Type:Secondary [facility] Medicare Supplement [id number] [address]
--- OUTSIDE RECORDS SUMMARY | 2024-05-11 16:02 | XMS_ITS | Clinical Summary ---
Author Organization [facility] Address Unknown Care Team Providers Care Print Washer Name Role Phone Unavailable Primary Care Physician Unavailab le Medications Medication Dose Frequency Directions Start Date End Galen e Xarelto 90 amlodipine-benazepril 90 amiodarone 90 triamterene-hydrochlorothiazid 36 atorvastatin 90 Problems Problem Status Start Date End Date Change in bowel habits (R19.4 - ICD-10) Active Rectal bleeding (K62.5 - ICD-10) Active Atrial Fibrillation (I48.91 - ICD-10) Hyperlipidemia (E78.5 - ICD-10) hypertension (I10 - ICD-10) Prostate Cancer (D07.5 - ICD-10) Encounters Encounter Performer Performer Role Encounter Diagnoses Location Date Ambulatory Encounter [id number] - Sonido Chinchilla SPB-Dykflcl-Mu [facility] 05/29/2017 12:05 pm [facility] Ambulatory Encounter [id number] - Sonido Chinchilla RCL-Jzuddrf-Ef [facility] 07/06/2018 11:23 am PST First Visit [id number] - Javier White Change in bowel habits Rectal bleeding EIR-Ufslxwo-Be [facility] 10/01/2023 09:00 am PDT Chief Complaint blood in stool Review Of Systems Gastrointestinal: Complains of bloo d in stool . Denies of abdominal pain, change in bowel habits, constipation, diarrhea, bloating/gas, heartburn/reflux, nausea, vomiting, difficulty swallowing, anorectal pain/itching, incontinence of stool, black tarry stools. Genitourinary: Complains of bloo d in urine . Denies of dark urine, frequent urinary infections, frequent urination. Integumentary: Denies of itching, jaundice, rashes. Cardiovascular: Denies of chest nellie n, irregular heart beat, palpitations, peripheral edema, heart murmur. Constitutional: Denies of fatigue, fever, loss of appetite, night sweats, weight gain, weight loss, chills. Psychiatric: Denies of anxiety, depression. ENMT: Denies of sore thro at, eye irritation, eye pain, eye redness, hoarseness, mouth sores. Hematologic/Lymphatic: Complains of e asy bruising . Denies of prolonged bleeding. Respiratory: Denies of cough, wh eezing, snoring, shortness of breath. Physical Exam Constitutional: Appearance: Skin: Inspection: Eyes: Conjunctivae/lids: Pupils/irises: symmetrical. ENMT: Lips/teeth/gums: Oropharynx: normal tongue, hard and soft palate; no oral lesions. Neck: Neck: Thyroid: normal size, consist ency and position, no masses or tenderness. Respiratory: Effort: Auscultation: normal bilateral linnea ath sounds, no rubs, wheezes, rales or rhonchi. Cardiovascular: Auscultation: Peripheral: no edema, no cyanosi s. Gastrointestinal/Abdomen: Abdomen: Liver/Spleen: no splenomegaly, no hepatomegaly. Musculoskeletal: Gait/station: Digits/nails: no clubbing, no cyan osis. Psychiatric: Judgment/insight: Memory: within normal limits for recent and remote events. Mood and affect: no evidence of depre ssion, anxiety or agitation. Orientation: to time, place and p erson. Lymphatic: Neck: Other: no supraclavicular lymphadenopathy. Neurologic: Sensation: Inspection: grossly normal. Other: chaperoned by: Plan of Care Planned Activity Planned Date [...] saturation % 10/01/2023 09: 22 am PDT [id number] mmHg 10/01/2023 09:22 am PDT Height 67 in 10/01/2023 09:22 am PDT Weight 252 lbs 10/01/2023 09:22 am PDT BMI (Body Mass Index) 39.46 kg/m2 10/01/2023 09:22 am PDT BP Systolic 166 mm[hg] 10/01/2023 09:22 am PDT BP Diastolic 72 mm[hg] 10/01/2023 09:22 am PDT Insurances Policy / Member / Group Numbers Plan Details Company Policy Gregory [id number] / / Plan Type:[facility] Coverage Type:Primary Medicare [place] [address] [address] [id number] / / Plan Type:[facility] Coverage Type:Secondary UHC AARP Medicare Supplement [id number] [address]
--- OUTSIDE RECORDS SUMMARY | 2024-05-11 16:02 | XMS_ITS | Encounter Summary ---
Author Organization [facility] Address [address] [place] [address] Care Team Providers Care Creative Coordinator Name Role Phone Lanre Burrell MD Primary Care Provider [phone] Encounter Details Date Type Department Care Team (Late st Contact Info) Description 02/19/2017 Ancillary Orders [facility] Nuclear Medicine [address] [place] [address] Junior Ahumada MD [address] [facility] [address] [place], [place] [phone] Prostate cancer Social History Tobacco Use Types Packs/Day Years [...] on file documented as of this encounter Visit Diagnoses Diagnosis Prostate cancer Malignant neoplasm of prostate documented in this encounter Care Teams Creative Coordinator Relationship Specialty Start Date End Date Lanre Burrell MD PCP - General Internal Medicine 09/24/16 documented as of this encounter
--- OUTSIDE RECORDS SUMMARY | 2024-05-11 16:02 | XMS_ITS | Encounter Summary ---
Author Organization [facility] Address [address] [place] [address] Care Team Providers Care Coagulant Dipper Name Role Phone Lanre Burrell MD Primary Care Provider [phone] Encounter Details Date Type Department Care Team (Late st Contact Info) Description 03/12/2024 Orders Only RADIOLOGY VIEW ONLY [address] [place] [address] [place] [address] [place], [place] [id number] Social History Tobacco Use Types Packs/Day Years [...] Date/Time Associated Diagnosis Comments PET EXTERNAL RESULT 03/11/2024 1 1:45 AM [facility] documented in this encounter Results * PET External Result (03/11/2024 11:45 AM [facility]) Anatomical Region Laterality Modality Nuclear Medicine 03/12/2024 9:25 AM MST Impressions 03/12/2024 9:25 AM [facility] IMPRESSION: No findings convincing for FDG avid malignancy. ORDERED BY: SAMANTHA CASTILLO, [id number] Performed at [facility] ??Electronically signed by Dr. LEENA MELENDEZ MD SMIL ID: [id number] Date of Service: 03/11/2024 Narrative 03/12/2024 9:25 AM [facility] PET/CT SCAN HISTORY: Prostate cancer. Restaging. COMPARISON: PET/CT 01/05/2024 (piflufolastat) TECHNIQUE: A PET/CT study was performed from the head to the mid thigh after the intravenous administration of 10.1 mCi F-18 FDG at a blood glucose level of 98 mg/dL. [address] portion of the PET/CT examination was used for the purposes of attenuation correction and anatomic localization only and does not constitute a dedicated CT scan. FINDINGS: No FDG avid disease in the neck. No FDG avid thoracic lymphadenopathy. No FDG avid pulmonary lesions. Subpleural left upper lobe nodule (image 120) is stable and below the size threshold for reliable evaluation by PET. Previously depicted right lower lobe nodule is relatively inconspicuous, perhaps due to respiratory motion. Evidence of prior granulomatous infection. Below the diaphragm, tracer activity is physiologic. Minor fatty replacement of pancreatic parenchyma. Multiple colonic diverticula. Brachytherapy seeds within the prostate gland. Mild diffuse bladder wall thickening. No FDG avid skeletal lesions. Procedure Note Leena Melendez MD - 03/12/2024 PET/CT SCAN HISTORY: Prostate cancer. Restaging. COMPARISON: PET/CT 01/05/2024 (piflufolastat) TECHNIQUE: A PET/CT study was performed from the head to the mid thighafter the intravenous administration of 10.1 mCi F-18 FDG at a blood glucose levelof 98 mg/dL. [address] portion of the PET/CT examination was used for thepurposes of attenuation correction and anatomic localization only and does notconstitute a dedicated CT scan. FINDINGS: No FDG avid disease in the neck. No FDG avid thoracic lymphadenopathy. No FDG avid pulmonary lesions.Subpleural left upper lobe nodule (image 120) is stable and below the size threshold forreliable evaluation by PET. Previously depicted right lower lobe nodule isrelatively inconspicuous, perhaps due to respiratory motion. Evidence of priorgranulomatous infection. Below the diaphragm, tracer activity is physiologic. Minor fattyreplacement of pancreatic parenchyma. Multiple colonic diverticula. Brachytherapy seedswithin the prostate gland. Mild diffuse bladder wall thickening. No FDG avid skeletal lesions. IMPRESSION: No findings convincing for FDG avid malignancy. ORDERED BY: SAMANTHA CASTILLO, [id number] Performed at [facility] Electronically signed by Dr. DRAKE LANTIGUA [facility] ID: [id number] Date of Service: 03/11/2024 Samantha Castillo MD IMG NM ORDERABL ES documented in this encounter Visit Diagnoses Not on filedocumented in this encounter Care Teams Coagulant Dipper Relationship Specialty Start Date End Date Lanre Burrell MD PCP - General Internal Medicine 09/24/16 documented as of this encounter
--- OUTSIDE RECORDS SUMMARY | 2024-05-11 16:02 | XMS_ITS | Clinical Summary ---
Author Organization [facility] Address Unknown Care Team Providers Care Tow Bar Driver Name Role Phone Unavailable Primary Care Physician [...] Role Encounter Diagnoses Location Date Ambulatory Encounter [id number] - Amor Sonido [address] 8 12:05 pm PST Ambulatory Encounter [id number] Sonido Wan [facility] 9 11:23 am PST Ambulatory Encounter [id number] Sonido Wan [id number] - Francia Omalley [facility] 4 01:54 pm PDT First Visit [id number] - Javier White Change in bowel habits Rectal bleeding [facility] [facility] 4 09:00 am PDT Procedures Procedure Date knee Pre-Procedure Call 10/02/2023 12:00 am PDT Review Of Systems Plan of Care Planned Activity Planned Date [...] saturation % 10/01/2023 09: 22 am PDT [id number] mmHg 10/01/2023 09:22 am PDT Height 67 in 10/02/2023 01:54 pm PDT Weight 0 lbs 10/02/2023 01:54 pm PDT BMI (Body Mass Index) kg/m2 10/02/2023 01:54 pm PDT BP Systolic 166 mm[hg] 10/01/2023 09:22 am PDT BP Diastolic 72 mm[hg] 10/01/2023 09:22 am PDT Insurances Policy / Member / Group Numbers Plan Details Company Policy Gregory [id number] / / Plan Type:[facility] Coverage Type:Primary Medicare [place] [address] [address] [id number] / / Plan Type:MCRSUP Coverage Type:Secondary [facility] Medicare Supplement [id number] [address]
--- OUTSIDE RECORDS SUMMARY | 2024-05-11 16:02 | XMS_ITS | Clinical Summary ---
Author Organization [facility] Address Unknown Care Team Providers Care Entry Analyst Name Role Phone Unavailable Primary Care [...] Role Encounter Diagnoses Location Date Ambulatory Encounter [id number] - Amor Sonido L[address] 8 12:05 pm PST Ambulatory Encounter [id number] Kristie Amor Sonido DWX-Hxgijww[address] 9 11:23 am PST Ambulatory Encounter [id number] Kristie Amor Sonido [id number] - Francia Omalley [facility] 4 01:54 pm PDT First Visit [id number] - Javier White Change in bowel habits Rectal bleeding [facility]-[address] 4 09:00 am PDT Ambulatory Encounter [id number] Javier Hinkle [facility] 4 08:00 am PDT Advance Directives Directive Description Verification Lina Silvestre , 10/10/2023 Procedures Procedure Date knee Pre-Procedure Call 10/02/2023 [...] Signs Vital Sign Reading Time Taken Pulse 69 /min 10/10/2023 07:39 am PDT Rhythm Regular 10/10/2023 07:39 am PDT Body Temperature 97.5 [degF] 10/10/2023 07:3 9 am PDT Respirations 16 /min 10/10/2023 07:39 am PDT Oxygen saturation 96 % 10/10/2023 07: 39 am PDT [id number] mmHg 10/10/2023 07:39 am PDT Height 67 in 10/10/2023 06:44 am PDT Weight 252 lbs 10/10/2023 06:44 am PDT BMI (Body Mass Index) kg/m2 10/10/2023 06:44 am PDT BP Systolic 199 mm[hg] 10/10/2023 07:39 am PDT BP Diastolic 91 mm[hg] 10/10/2023 07:39 am PDT Insurances Policy / Member / Group Numbers Plan Details Company Policy Gregory [id number] / / Plan Type:[facility] Coverage Type:Primary Medicare [place] [address] [address] [id number] / / Plan Type:MCRP Coverage Type:Secondary [facility] Medicare Supplement [id number] [address]
--- OUTSIDE RECORDS SUMMARY | 2024-05-11 16:02 | XMS_ITS | Clinical Summary ---
Author Organization [facility] Address Unknown Care Team Providers Care Park Guard Name Role Phone Unavailable Primary Care Physician [...] Role Encounter Diagnoses Location Date Ambulatory Encounter [id number] Sonido Wan [address] 8 12:05 pm PST Ambulatory Encounter [id number] Sonido Wan BZU-Qddlcml[address] 9 11:23 am PST Ambulatory Encounter [id number] Sonido Wan [id number] - Francia Omalley [facility] 4 01:54 pm PDT First Visit [id number] Javier Hinkle Change in bowel habits Rectal bleeding [facility] 4 09:00 am PDT Colonoscopy [id number] Trujillo Diverticulosis of large intestine without perforation or abs Evaluation of unexplained GI bleeding Other specified diseases of intestine Polyp of colon [facility] 08:00 am PDT Advance Directives [...] 96 % 10/10/2023 07: 39 am PDT EDZJ0Wolgo mmHg 10/10/2023 07:39 am PDT Height 67 in 10/10/2023 06:44 am PDT Weight 252 lbs 10/10/2023 06:44 am PDT BMI (Body Mass Index) kg/m2 10/10/2023 06:44 am PDT BP Systolic 199 mm[hg] 10/10/2023 07:39 am PDT BP Diastolic 91 mm[hg] 10/10/2023 07:39 am PDT Insurances Policy / Member / Group Numbers Plan Details Company Policy Gregory [id number] / / Plan Type:MCR Coverage Type:Primary Medicare [place] [address] [address] [id number] / / Plan Type:MCRSUP Coverage Type:Secondary [facility] Medicare Supplement [id number] [address]
--- OUTSIDE RECORDS SUMMARY | 2024-05-11 16:02 | XMS_ITS | Clinical Summary ---
Author Organization [facility] Address Unknown Care Team Providers Care Shrimp Boat Captain Name Role Phone Unavailable Primary Care Physician [...] Role Encounter Diagnoses Location Date Ambulatory Encounter [id number] - Sonido Chinchilla RBG-Yktbjlq-Mo [facility] 05/29/2017 12:05 pm PST Ambulatory Encounter [id number] - Sonido Chinchilla ZST[facility]Dlwad[address] 07/06/2018 11:23 am PST First Visit [id number] - Javier White Change in bowel habits Rectal bleeding JFG-Ivqqvsk-Y[address] Rd 10/01/2023 09:00 am PDT Plan of Care Planned Activity [...] saturation % 10/01/2023 09: 22 am PDT OOMQ8Nslmp mmHg 10/01/2023 09:22 am PDT Height 67 in 10/01/2023 09:22 am PDT Weight 252 lbs 10/01/2023 09:22 am PDT BMI (Body Mass Index) 39.46 kg/m2 10/01/2023 09:22 am PDT BP Systolic 166 mm[hg] 10/01/2023 09:22 am PDT BP Diastolic 72 mm[hg] 10/01/2023 09:22 am PDT Insurances Policy / Member / Group Numbers Plan Details Company Policy Gregory [id number] / / Plan Type:[facility] Coverage Type:Primary Medicare [place] [address] [address] [id number] / / [facility] Coverage Type:Secondary UHC AARP Medicare Supplement [id number] [address]
--- OUTSIDE RECORDS SUMMARY | 2024-05-11 16:02 | XMS_ITS | Encounter Summary ---
Author Organization [facility] Address [address] [place] [address] Care Team Providers Care Mill Hand Name Role Phone Lanre Burrell MD Primary Care Provider [phone] Reason for Referral * Nuclear Medicine (Routine) - Closed Specialty Diagnoses / Procedures Referred By Mary monge Referred To Contact Diagnoses Prostate CA Procedures NM Interstitial Radiation Source Application Complex Junior Ahumada MD [address] [facility] [address] [place] [address] Referral ID Status Reason Start Date Expiration Date Visits Re quested Visits Authorized [id number] Closed 02/20/2017 08/19/2017 1 1 [facility] Reason for Visit * Nuclear Medicine (Routine) - Closed Specialty Diagnoses / Procedures Referred By Mary monge Referred To Contact Diagnoses Prostate CA Procedures NM Interstitial Radiation Source Application Complex Junior Ahumada MD [address] [facility] [address] [place] [address] Referral ID Status Reason Start Date Expiration Date Visits Re quested Visits Authorized [id number] Closed 02/20/2017 08/19/2017 1 1 Encounter Details Date Type Department Care Team (Latest Contact Info) Description 02/21/2017 10:55 AM [facility] - 02/21/2017 11:59 PM [facility] Hospital Encounter [facility] Nuclear Medicine [address] [place] [address] [place] [address] [place] [address] [address] [place], [place] [phone] Prostate CA Discharge Disposition: Home or Self Care Social History Tobacco Use Types Packs/Day Years Used Date Smoking Tobacco: Former Cigarettes Q uit: 09/17/1998 Alcohol Use Standard Drinks/Week Comments Yes 0 (1 standard drink = 0.6 oz pur e alcohol) 2-3 GLASSES WINE/WEEK Sex and Gender Information Value Date Recorded Sex Assigned at Not on file Gender Identity Not on file Sexual Orientation Not on file documented as of this encounter Medications at Time of Discharge Medication Sig Dispensed Refills Start Date End Date amLODIPine-benazepril (LOTREL) 10-40 MG per capsule Take 1 capsule by mouth daily. aspirin 81 MG tablet Take 162 mg by mouth daily. atenolol (TENORMIN) 50 mg tablet Take 50 mg by mouth daily. atorvastatin (LIPITOR) 40 mg tablet Take 40 mg by mouth at bedtime. Cholecalciferol (VITAMIN D-3 PO) Take by mouth. KRILL OIL PO Take by mouth. OIL OF OREGANO PO Take by mouth. triamterene-hydroCHLOROth iazide (DYAZIDE) 37.5-25 mg per capsule Take 1 capsule by mouth daily. documented as of this encounter Plan of Treatment Not on file documented as of this encounter Procedures Procedure Name Priority Date/Time Associated Diagnosis Comments NM INTERSTITIAL RADIATION SOURCE APPLICATION COMPLEX Routine 09/24/2016 10:55 AM [facility] Prostate CA documented in this encounter Results * NM Interstitial Radiation Source Application Complex (09/24/2016 10:55 AM [facility]) Narrative SMIL - 02/20/2017 11:05 AM [facility] This was an auto-finalized study. Junior ROBLES NM ORDERABLES [facility] documented in this encounter Visit Diagnoses Diagnosis Prostate CA Malignant neoplasm of prostate documented in this encounter Administered Medications Inactive Administered Medications - up to 3 most recent administrations Medication Order MAR Action Action Date Dose Rate Site I-125 BRACHY SEED 73 seeds 73 seeds, Does not apply, Imaging once PRN, Isotope, Starting on Fri09/24/16 at 0000, For 1 dose, Routine Given 02/20/2017 11:04 AM MST 73 seeds documented in this encounter Care Teams Mill Hand Relationship Specialty Start Date End Date Lanre Burrell MD PCP - General Internal Medicine 09/24/16 documented as of this encounter
--- OUTSIDE RECORDS SUMMARY | 2024-05-11 16:02 | XMS_ITS | Encounter Summary ---
Author Organization [facility] Address [address] [place] [address] Care Team Providers Care [employer]liance [employer] Counter Clerk Name Role Phone Lanre Burrell MD Primary Care Provider [phone] Reason for Visit * Auth/Cert Specialty Diagnoses / Procedures Referred By Mary monge Referred To Contact Diagnoses Malignant neoplasm of prostate Malignant neoplasm of prostate [C61] Procedures CHG INTERSTI RADIOELEM APPL COMPLX TN PERCUT/NEEDLE INSERT,PROSTATE,RADIOISOT CHG ECHO,TRANSRECTAL,PROSTATE VOL CHG SONO GUIDE RADIOELEMT APPLIC CHG RADIOELEMENT HANDLING RADIOACTIVE SEED IMPLANTATION, PROSTATE Referral ID Status Reason Start Date Expiration Date Visits Re quested Visits Authorized [id number] 1 1 Encounter Details Date Type Department Care Team (Latest Contact Info) Description 09/24/2016 6:01 AM [facility] - 09/24/2016 10:48 AM [facility] Hospital Encounter [facility] Inpatient Surgery [address] [address] Junior Ahumada MD [address] [facility] [address] [place], [place] [id number] Malignant neoplasm of prostate (Primary Dx) Discharge Disposition: Home or Self Care Social [...] on file documented as of this encounter Last Filed Vital Signs Vital Sign Reading Time Taken Comments Blood Pressure 141/81 09/24/2016 10:15 AM [facility] Pulse 54 09/24/2016 10:15 AM [facility] Temperature 36.3 ??C (97.4 ??F) 09/24/2016 10:00 AM [facility] Respiratory Rate 16 09/24/2016 10:15 AM [facility] Oxygen Saturation 96% 09/24/2016 10:15 AM [facility] Inhaled Oxygen Concentration - - Weight 101.2 kg (223 lb) 09/24/2016 6:40 AM [facility] Height 170.2 cm (5' 7 ) 09/24/2016 6:40 AM [facility] Body Mass Index 34.93 09/24/2016 6:40 AM MST documented in this encounter Discharge Instructions * Discharge Instructions* Melissa Thomas RN - 09/24/2016 10:05 AM [facility] General Home Care Instructions Activity: You have had: a general anesthetic today. For the next 24 hours: 1. Do not drive a car or operate hazardous machinery. 2. Do not drink alcoholic beverages. 3. Do not make important personal or business decisions or sign legal documents. 4. Limit your activities. It is recommended that a responsible person remain with you after your arrival home. Pain: Take any prescription pain medication with a little food to prevent nausea. Pain medication may make you dizzy, it is sanchez to rest after taking them. Diet: Begin with clear liquids and progress to your normal diet. Avoid spicy and greasy or fried foods the day of surgery. It is helpful to increase your fluid intake. Dressings Keep dressings/stitches clean and dry or as instructed by your doctor. When applicable, elevate wound to decrease pain and swelling. NOTIFY YOUR DOCTOR IF ANY OF THE FOLLOWING OCCUR: 1. Persistent vomiting. 2. Fever over 100??F 3. If bleeding or swelling increases. 4. Drainage or red streaks coming from wound. 5. Ineffective pain control. 6. If unable to urinate. 7. Any additional problems/concerns. . documented in this encounter Medications at Time of Discharge [...] mouth daily. documented as of this encounter H&P Notes * Junior Ahumada MD - 09/24/2016 9:40 AM MST The scanned history and physical brought in from the office has been reviewed and the patient has been examined. There are no interim changes to the patient's history or physical condition. Junior Ahumada MD documented in this encounter Nursing Notes * Simin Peter RN - 09/24/2016 10:25 AM MST 1025 received from pacu awake and alert and got up to bathroom and voided With pinkish color urine output in moderate amount . here at the bedside homecare instructions given . documented in this encounter Miscellaneous Notes * Op Note - Junior Ahumada MD - 09/24/2016 10:48 AM MST DATE OF SERVICE: 09/24/2016 PREPROCEDURE DIAGNOSIS: Recurrent adenocarcinoma of the prostate. POST-PROCEDURE DIAGNOSIS: Recurrent adenocarcinoma of the prostate. ANESTHESIA: General by ____ RADIATION ONCOLOGIST: Junior Ahumada MD. PROCEDURE PERFORMED: Transrectal ultrasound-guided transperineal interstitial implant of the prostate with I-125 sources. INDICATION FOR PROCEDURE: The patient with recurrent adenocarcinoma of the prostate. It was previously irradiated in 2008 andnow has documented recurrence. After negative staging workup, he has decided to proceed with brachytherapy as definitive salvage therapy. DESCRIPTION OF PROCEDURE: The patient was brought to the operating room where general anesthesia was smoothly induced. He wasplaced in the dorsal lithotomy position and the perineum prepped and draped in the usual fashion. Rivera catheter was inserted and the bladder drained. A 120 mL of sterile water was placed into the bladder along with 10 mL of aerated viscous lidocaineinto the prostatic urethra. A transrectal ultrasound probe was then attached to the stepping unit and inserted into the rectum. The prostate was centered in the targeting matrix and a stepping procedure was performed. The images were transferred to the treatment planning ____ physics staff created intraoperative plan to deliver a dose of 110 Gy utilizing I-125 seeds each with an activity of 0.283mCi. Per the intraoperative plan, needles were placed just to the level of the base of the gland and then each needle was after loaded with I-125 sources, each with an activity of 0.283 mCi per the intraoperative plan. Biplane ultrasound guidance was used throughout. Ultrasound simulation was then performed with the gland being viewed and photographed in multiple planes. Excellent seed distribution was identified. The ultrasound probe was removed from the rectum. I then reinserted the Rivera catheter and the bladder was irrigated. No clots or seeds were seen andthe catheter was freely placed. The catheter was removed and the patient returned to recovery in good condition. Estimated blood loss less than 5 mL. The patient will be discharged to home when he is able to urinate. I will see him back in the office on 09/25/[address] scan. JUNIOR AHUMADA MD Dictated by: JUNIOR AHUMADA MD -[facility] Dictation ID: [id number] Confirmation / [facility] * Brief Op Note - Junior Ahumada MD - 09/24/2016 9:29 AM MST RADIOACTIVE SEED IMPLANTATION, PROSTATE ULTRASOUND Procedure Progress Note Du Clements 09/24/2016 All items MUST be fully completed Pre-op Diagnosis: Malignant neoplasm of prostate [C61] Post-op Diagnosis:same Procedure(s) performed: Procedure(s): RADIOACTIVE SEED IMPLANTATION, PROSTATE ULTRASOUND Laterality:bilateral Primary Surgeon/Physician: Junior Ahumada MD Anesthesia type: General Name of Assistants(s): Surgeon(s): Junior Ahumada MD Estimated Blood Loss: Minimal Blood Products Administered: Did not receive any intraoperative transfusion Complications: None Specimen(s) removed: Specimens None Grafts/Implants/Operations Support Analyst(s): 70 I-125 seeds placed Drains: Findings: Same as Post-op Diagnosis Debridement: No Debridement Closing: N/A Date: 09/24/2016 Time: 9:29 AM Physician Junior Ahumada Per Medical Staff Rules and Regs: This brief post procedure progress note must be documented immediately following surgery and before the patient is transferred to the next level of care (e.g. beforethe patient leaves the post anesthesia care area) [facility] documented in this encounter Plan of Treatment Not on file documented as of this encounter Procedures Procedure Name Priority Date/Time Associated Diagnosis Comments RADIOACTIVE SEED IMPLANTATION, PROSTATE 09/24/2016 8:07 AM [facility] Malignant neoplasm of prostate Case Notes SAVED LJ FSAC 09 02 16 Saved preops. gg 09/03 Saved preops. gg 09/17 Special Needs STEPPER, UROLOGY TABLE, ULTRASOUND MACHINE AND TECH, IMPLANTS: [employer] NOTIFIED RADIOLOGY FOR U/S POCT GLUCOSE Routine 09/24/2016 7:15 AM [facility] PHYSICIAN ORDERS 09/24/2016 12:0 0 AM [facility] documented in this encounter Results * POCT Glucose (09/24/2016 7:15 AM [facility]) POC Glucose 96 65 - 99 mg/dL 09/24/2016 7:34 AM [facility] Blood BLOOD SPECIMEN / Unknown 09/24/2016 7:15 AM MST 09/24/2016 7:34 AM [facility] Narrative [facility] - 09/24/2016 7:34 AM [facility] Test Performed at: [address] [address] Tamiko Bynum MD Junior Ahumada MD POCT ORDERABLES - D EVICE [facility] [address] [place], [place] [address] [phone] * PHYSICIAN ORDERS (09/24/2016 12:00 AM MST) Default Authenticator [employer] documented in this encounter Visit Diagnoses Diagnosis Malignant neoplasm of prostate- Primary Malignant neoplasm of prostate documented in this encounter Admitting Diagnoses Diagnosis Malignant neoplasm of prostate documented in this encounter Administered Medications Inactive Administered Medications - up to 3 most recent administrations Medication Order MAR Action Action Date Dose Rate Site lactated ringers infusion at 100 mL/hr, Intravenous, Continuous, Starting on Fri09/24/16 at 0945, PACU, Routine New Bag 09/24/2016 10:00 AM MST 100 mL/hr lactated ringers infusion at 30 mL/hr, Intravenous, Once, On Fri09/24/16 at 0730, For 1 dose, Pre-Op, Routine New Bag 09/24/2016 7:15 AM MST 30 mL/hr documented in this encounter Active and Recently Administered Medications Times are shown in MST. Scheduled Medication Order 09/22/2016 09/23/2016 09/24/2016 cefTRIAXone (ROCEPHIN) 1 g IV push (COMPLETED) 1 g, Intravenous, scallop dredger to OR, First dose on Fri09/24/16 at 0730, For 1 dose, Dilute each 1 g vial with NS flush 10 mL to a final concentration of 100 mg/mL., Pre-Op, Routine 0816 (New Bag - Prov ider: Betty Wesley MD) lactated ringers infusion (COMPLETED) at 30 mL/hr, Intravenous, Once, On Fri09/24/16 at 0730, For 1 dose, Pre-Op, Routine 0715 (New Bag - Prov ider: Daria Keenan RN)0916 (Anesthesia Volume Adjustment - Provider: Betty Wesley MD)1012 (Stopped - Provider: Melissa Thomas, KEVIN) Continuous Medication Order 09/22/2016 09/23/2016 09/24/2016 lactated ringers infusion (CANCELED) at 100 mL/hr, Intravenous, Continuous, Starting on Fri09/24/16 at 0945, PACU, Routine 1000 (New Bag - Prov ider: Melissa Thomas, KEVIN)1040 (Stopped - Provider: Simin Peter RN) PRN Medication Order 09/22/2016 09/23/2016 09/24/2016 lidocaine jelly (XYLOCAINE) 2 % (CANCELED) As needed, Starting on Fri09/24/16 at 0820, Intra-Op, Routine 0820 (Given - Provid er: Bryn Garsia RN - Comment: 5 ML UROJET WITH 3 ML H2O MIXTURE VIA PROSTATE) sterile water - IR irrigation (CANCELED) As needed, Starting on Fri09/24/16 at 0735, Intra-Op, Routine 0735 (Given - Provid er: Junior Ahumada MD) documented in this encounter Care Teams Appliance Parts Counter Clerk Relationship Specialty Start Date End Date Lanre Burrell MD PCP - General Internal Medicine 09/24/16 documented as of this encounter
--- OUTSIDE RECORDS SUMMARY | 2024-05-11 16:02 | XMS_ITS | Data Portability ---
Author Organization MD - 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 Follow up annually but sooner as needed [email or web address] Not available 06/15/2021 11:38:17 06/17/2022 06/17/2022 See below Follow-up: Annually Lab ordered april Not available 06/17/2022 10:42:33 08/21/2022 08/21/2022 Minimum time(minutes) on date of service: 30 -prep and reviewed chart. [email or web address] Not available 08/21/2022 18:11:56 11/14/2022 11/14/2022 Assessment: Left hand pain due to a trigger thumb Plan: We discussed treatment options in detail including medications and injection. Today, he elects to try an injection. Injection given. He will continue to work on gentle range of motion as tolerated. He will avoid heavy lifting and other aggravating activities. He can ice and elevate as needed. I will see him back in the office in about 4 weeks for reevaluation. If he continues to have significant symptoms, consider medication, repeat injection, referral Not available 11/14/2022 13:22:00 05/20/2023 05/20/2023 1. Continue current medications as tolerated. Medication renewals provided. 2. Obtain labs when fasting. 3. Follow up 3 months MWV [email or web address] Not available 05/20/2023 12:04:05 Plan of Treatment Reminders Order Date Submit Date Provider Last Modified By Organization Details Last Modified Time Details Appointments Medicare Wellness 20 2024 10:00A M Arleth Burrell MD Not available Not available Not available Lab lipid panel, serum [address], [address], [place], [address], 06/20/2021 12:10:40 PSA, total, serum or plasma [address], [address], [place], [address], 06/20/2021 12:10:41 urinalysi s complete, reflex culture [address], [address], [place], [address], 06/20/2021 12:10:39 CMP, serum or plasma [address], [address], [place], [address], 06/20/2021 12:10:38 vitamin B12 + folate, serum or blood [address], [address], [place], [address], 06/20/2021 12:10:40 CBC w/ auto diff [address], [address], [place], [address], 06/20/2021 12:10:39 unlisted lab - TSH reflex to t4f [address], [address], [place], [address], 06/20/2021 12:10:42 HbA1c (hemoglob in A1c), blood 2021 022 [facility], [address], [address], [place], [address], 06/20/2021 12:10:41 noninvasi ve colorecta l cancer DNA + occult blood screening , QL, stool 2021 022 [email or web address] (Cologuard Orders Only), [address], [address], [place], [address], 07/16/2021 22:28:58 HbA1c (hemoglob in A1c), blood 2022 023 [facility], [address], [address], [place], [address], 06/20/2022 02:08:49 lipid panel, serum 2022 023 [facility], [address], [address], [place], [address], 06/20/2022 02:08:48 CMP, serum or plasma 2022 023 [facility], [address], [address], [place], [address], 06/20/2022 02:08:47 vitamin B12 + folate, serum or blood 2022 023 [facility], [address], [address], [place], [address], 06/20/2022 02:08:49 CBC w/ auto diff 2022 023 [facility], [address], [address], [place], [address], 06/20/2022 02:08:47 TSH, serum, reflex free T4 2022 023 [email or web address] [facility], [address], [address], [place], [address], 07/22/2022 13:50:49 urinalysi s complete, reflex culture 2022 023 [facility], [address], [address], [place], [address], 06/20/2022 02:08:48 prostate specific Ag, QN, serum or plasma 2022 023 [email or web address] [facility], [address], [address], [place], [address], 07/22/2022 13:50:49 HbA1c (hemoglob in A1c), blood 2023 024 [facility], [address], [address], [place], [address], 05/26/2023 03:18:29 urinalysi s complete, reflex culture 2023 024 [facility], [address]anneth[address], [address], [place], [address], 05/26/2023 03:18:28 prostate specific Ag, QN, serum or plasma 2023 024 [email or web address] [facility], [address], [address], [place], [address], 05/27/2023 12:00:10 lipid panel, serum 2023 024 [facility], [address], [address], [place], [address], 05/26/2023 03:18:28 CMP, serum or plasma 2023 024 [facility], [address], [address], [place], [address], 05/26/2023 03:18:26 vitamin B12 + folate, serum or blood 2023 024 [facility], [address], [address], [place], [address], 05/26/2023 03:18:29 CBC w/ auto diff 2023 024 [facility], [address], [address], [place], [address], 05/26/2023 03:18:27 TSH, serum, reflex free T4 2023 024 [email or web address] [facility], [address], [address], [place], [address], 05/27/2023 12:00:10 Referral physical therapist referral 2022 023 [facility], [address], [place], [address], 08/23/2022 13:45:27 Procedures None recorded. Surgeries None recorded. Imaging XR, chest, 2 view 2022 023 [facility], [address], [address], [place], [address], 06/20/2022 20:48:41 XR, cervical spine, 4 or 5 view 2022 023 [email or web address], [address], [address], [place], [address], 08/29/2022 16:36:25 Medication Orders atorvasta tin 40 mg tablet 2021 022 [email or web address] [facility] [id number], [address], [place], [address], 06/15/2021 14:26:18 amlodipin e 5 mg-benaze pril 20 mg capsule [address] [facility] [id number], [address], [place], [address], 06/15/2021 14:26:18 atenolol 50 mg tablet [address] [facility] [id number], [address], [place], [address], 06/15/2021 14:26:18 triamtere ne 37.5 mg-hydroc hlorothia zide 25 mg tablet 2021 [address] [facility] [id number], [address], [place], [address], 06/15/2021 14:26:18 atorvasta tin 40 mg tablet [address] [facility] [id number], [address], [place], [address], 06/17/2022 17:02:06 amlodipin e 5 mg-benaze pril 20 mg capsule [address] [facility] [id number], [address], [place], [address], 06/17/2022 17:02:06 atenolol 50 mg tablet 20[address] [facility] [id number], [address], [place], [address], 06/17/2022 17:02:06 triamtere ne 37.5 mg-hydroc hlorothia zide 25 mg tablet [address] [facility] [id number], [address], [place], [address], 06/17/2022 17:02:06 Medrol (Moncho) 4 mg tablets in a dose pack 2022 023 [facility] [id number], [address] , [place], [address], 08/21/2022 18:06:05 atorvasta tin 40 mg tablet 2023 024 [email or web address] Not available 06/06/2023 17:55:08 amlodipin e 5 mg-benaze pril 20 mg capsule 2023 024 [email or web address] 3 Not available 06/06/2023 17:55:09 triamtere ne 37.5 mg-hydroc hlorothia zide 25 mg tablet 2023 024 [email or web address] 3 Not available 06/06/2023 17:55:09 atenolol 50 mg tablet 2023 024 [email or web address] 3 Not available 06/06/2023 17:55:09 Patient TargetsNo targets recorded. Patient Instructions Encounter Date Encounter Id Patient Instructions Last Modified By Organization Details Last Modified Time 06/15/2021 [id number] learning about obesity Not available 06/15/2021 14:26:18 body mass index: care instructions Not available 06/15/2021 14:26:18 Clinical Action Plan: Patient understands and agrees to comply with outlined clinical care plan. Preventative Action Plan: Patient understands and agrees to comply with outlined preventative care plan. The patient was informed of all potential risks and benefits associated with the plan, including the importance of meeting goals while managing expectations. Discussed with the patient at length, his/her questions were answered, he/she verbalized his/her understanding and agreement with the plan. Face to face time was 30 min. Time spent counselling was > 50%. Time spent counselling was 20 min. [email or web address] Not available 06/11/2021 10:22:18 06/17/2022 [id number] medical record request* - Records requested: EKG and last office visit note --- Continuity of Care request for Records. This is a CRITICAL for CONTINUITY of CARE for PRIMARY CARE please forward requests AMANDA. ----- [email or web address] Not available 09/19/2022 11:52:46 Clinical Action Plan: Patient understands and agrees to comply with outlined clinical care plan. Preventative Action Plan: Patient understands and agrees to comply with outlined preventative care plan. The patient was informed of all potential risks and benefits associated with the plan, including the importance of meeting goals while managing expectations. Discussed with the patient at length, his/her questions were answered, he/she verbalized his/her understanding and agreement with the plan. Face to face time was 30 min. Time spent counselling was > 50%. Time spent counselling was 20 min. 5 to 10 year health maintenance outline Vaccination recommendations: Influenza Vaccine: Annually {{Up to Date Ordered today Not Applicable N/A due to allergy Patient Refuses all risks outlined }} Pneumovax Vaccine: 1 shot with PCV20 at age 65 (CDC recommendation): {{Up to Date Ordered today Not Applicable N/A due to allergy Patient Refuses all risks outlined}} Shingrix: Varicella/Shingle s 2 shot series within 6 months of each other at age 50: {{Up to Date Ordered today Not Applicable N/A due to allergy Patient Refuses all risks outlined}} Cancer Screening Recommendations: Colorectal Screening: {{ N/A N/A due to age FOBT stool cards Cologuard Home Kit Colonoscopy}}: TEST TYPE {{N/A N/A due to age Yearly every 3 years every 5 years every 10 years }}: FREQUENCY {{ N/A N/A due to Age Up to date Testing Ordered Patient Refused - all risks discussed}}: STATUS Breast Cancer Screening: Recommendation: {{ Not applicable N/A due to age Yearly Every OTHER Year}}: FREQUENCY {{ Not applicable N/A due to age Up to date Ordered Today refused all risks outlined }} : STATUS PSA Prostate Cancer Testing: Recommendation: {{ Not applicable Yearly Every other year}}: FREQUENCY {{ Not applicable Up to Date Ordered Today Patient Refuses all risks reviewed}}: STATUS Screening for Osteoporosis - High risk post menopausal women or women age 65y+ {{ N/A Once at age 65 Yearly Every other year every 3 years every 5 years}}: FREQUENCY {{ N/A Up to Date Ordered Brit ent Refuses-all risks outlined}}: STATUS General Health Recommendations: 1. Yearly Medicare Wellness Evaluation. 2. Bring medications or a medication list to every medical visit. 3. Work towards routine exercise as tolerated 5 times each week. [email or web address] Not available 06/17/2022 09:54:03 08/21/2022 [id number] learning about obesity [email or web address] Not available 08/21/2022 18:06:00 body mass index: care instructions [email or web address] Not available 08/21/2022 18:06:01 05/20/2023 [id number] learning about obesity Not available 05/20/2023 12:28:47 body mass index: care instructions Not available 05/20/2023 12:28:47 Clinical Action Plan: Patient understands and agrees to comply with outlined clinical care plan. Preventative Action Plan: Patient understands and agrees to comply with outlined preventative care plan. The patient was informed of all potential risks and benefits associated with the plan, including the importance of meeting goals while managing expectations. Discussed with the patient at length, his/her questions were answered, he/she verbalized his/her understanding and agreement with the plan. Approximate total time was 30 min. Time spent counselling was > 50%. Time spent counselling was 20 min. [email or web address] Not available 05/15/2023 14:57:54 Reason for Referral Physical Therapist Referral for Neck pain lois and radha Referring Physician: Sanjeev Purcell, Family Medicine, Encounter Date: 08/21/2022 Results Created Date Observation Date Name Description Value Unit Range Abnormal Flag Note LastModifiedBy Organization Detail LastModifiedTime 06/19/19 22 06/20/2021 CMP14 +EGFR glucose 101 mg/dL 65-99 above high normal Not Available [facility] ([facility]) [address] [facility], [place], [address], 06/20/2021 12:10:38 06/19/19 22 06/20/2021 CMP14 +EGFR BUN 18 mg/dL 8-27 Not Available [facility] ([facility]) [address] [place], [address], 06/20/2021 12:10:38 06/19/19 22 06/20/2021 CMP14 +EGFR creatinine 1.24 mg/dL 0.76-1 .27 Not Available [facility] ([facility]) [address] [place], [address], 06/20/2021 12:10:38 06/19/19 22 06/20/2021 CMP14 +EGFR eGFR if nonafricn AM 58 mL/mi n/1.7 3 >59 below low normal Not Available [facility] ([facility]) [address] [facility], [place], [address], 06/20/2021 12:10:38 06/19/19 22 06/20/2021 CMP14 +EGFR eGFR if africn AM 67 mL/mi n/1.7 3 >59 In accor dance with recom menda tions from the NKF-A SN Task force , [facility] is in the proce ss of updat ing its eGFR calcu latio n to the 2020 CKD-E PI creat inine equat ion that estim ates kidne y funct ion witho ut a race varia ble. Not Available [facility] ([facility]) [address] [place], [address], 06/20/2021 12:10:38 06/19/19 22 06/20/2021 CMP14 +EGFR BUN/creatini ne ratio 15 10-24 Not Available [facility] ([facility]) [address] [facility] [place], [address], 06/20/2021 12:10:38 06/19/19 22 06/20/2021 CMP14 +EGFR sodium 140 mmol/ L 134-14 4 Not Available [facility] ([facility]) [address] [facility], [place], [address], 06/20/2021 12:10:38 06/19/19 22 06/20/2021 CMP14 +EGFR potassium 4.2 mmol/ L 3.5-5. 2 Not Available [facility] ([facility]) [address] [facility] [place], [address], 06/20/2021 12:10:38 06/19/19 22 06/20/2021 CMP14 +EGFR chloride 101 mmol/ L 96-106 Not Available [facility] ([facility]) [address] [facility], [place], [address], 06/20/2021 12:10:38 06/19/19 22 06/20/2021 CMP14 +EGFR carbon dioxide, total 24 mmol/ L 20-29 Not Available [facility] ([facility]) [address] [facility], [place], [address], 06/20/2021 12:10:38 06/19/19 22 06/20/2021 CMP14 +EGFR calcium 9.5 mg/dL 8.6-10 .2 Not Available [facility] ([facility]) [address] [place], [address], 06/20/2021 12:10:38 06/19/19 22 06/20/2021 CMP14 +EGFR protein, total 6.1 g/dL 6.0-8. 5 Not Available [facility] ([facility]) [address] [place], [address], 06/20/2021 12:10:38 06/19/19 22 06/20/2021 CMP14 +EGFR albumin 4.5 g/dL 3.7-4. 7 Not Available [facility] ([facility]) [address] [place], [address], 06/20/2021 12:10:38 06/19/19 22 06/20/2021 CMP14 +EGFR globulin, total 1.6 g/dL 1.5-4. 5 Not Available [facility] ([facility]) [address] [place], [address], 06/20/2021 12:10:38 06/19/19 22 06/20/2021 CMP14 +EGFR A/G ratio 2.8 1.2-2. 2 above high normal Not Available [facility] ([facility]) [address] [place], [address], 06/20/2021 12:10:38 06/19/19 22 06/20/2021 CMP14 +EGFR bilirubin, total 1.6 mg/dL 0.0-1. 2 above high normal Not Available [facility] ([facility]) [address] [place], [address], 06/20/2021 12:10:38 06/19/19 22 06/20/2021 CMP14 +EGFR alkaline phosphatase 75 IU/L 44-121 Not Available [facility] ([facility]) [address] [place], [address], 06/20/2021 12:10:38 06/19/19 22 06/20/2021 CMP14 +EGFR AST (SGOT) 15 IU/L 0-40 Not Available [facility] ([facility]) [address] [place], [address], 06/20/2021 12:10:38 06/19/19 22 06/20/2021 CMP14 +EGFR ALT (SGPT) 19 IU/L 0-44 Not Available [facility] ([facility]) [address] [facility] [place], [address], 06/20/2021 12:10:38 06/19/19 22 06/19/2021 CBC WITH DIFFE RENTI AL/PL ATELE T WBC 5.7 x10e3 /uL 3.4-10 .8 Not Available [facility] ([facility]) [address] [facility], [place], [address], 06/20/2021 12:10:39 06/19/19 22 06/19/2021 CBC WITH DIFFE RENTI AL/PL ATELE T RBC 4.97 x10e6 /uL 4.14-5 .80 Not Available [facility] ([facility]) [address] [facility], [place], [address], 06/20/2021 12:10:39 06/19/19 22 06/19/2021 CBC WITH DIFFE RENTI AL/PL ATELE T hemoglobin 15.6 g/dL 13.0-1 7.7 Not Available [facility] ([facility]) [address] [facility], [place], [address], 06/20/2021 12:10:39 06/19/19 22 06/19/2021 CBC WITH DIFFE RENTI AL/PL ATELE T hematocrit 45.7 % 37.5-5 1.0 Not Available [facility] ([facility]) [address] [place], [address], 06/20/2021 12:10:39 06/19/19 22 06/19/2021 CBC WITH DIFFE RENTI AL/PL ATELE T MCV 92 fL 79-97 Not Available [facility] ([facility]) [address] [place], [address], 06/20/2021 12:10:39 06/19/19 22 06/19/2021 CBC WITH DIFFE RENTI AL/PL ATELE T MCH 31.4 pg 26.6-3 3.0 Not Available [facility] ([facility]) [address] [facility], [place], [address], 06/20/2021 12:10:39 06/19/19 22 06/19/2021 CBC WITH DIFFE RENTI AL/PL ATELE T MCHC 34.1 g/dL 31.5-3 5.7 Not Available [facility] ([facility]) [address] [facility], [place], [address], 06/20/2021 12:10:39 06/19/19 22 06/19/2021 CBC WITH DIFFE RENTI AL/PL ATELE T RDW 13.9 % 11.6-1 5.4 Not Available [facility] ([facility]) [address] [facility], [place], [address], 06/20/2021 12:10:39 06/19/19 22 06/19/2021 CBC WITH DIFFE RENTI AL/PL ATELE T platelets 249 x10e3 /uL 150-45 0 Not Available [facility] ([facility]) [address] [facility], [place], [address], 06/20/2021 12:10:39 06/19/19 22 06/19/2021 CBC WITH DIFFE RENTI AL/PL ATELE T neutrophils 67 % not estab. Not Available [facility] ([facility]) [address] [facility], [place], [address], 06/20/2021 12:10:39 06/19/19 22 06/19/2021 CBC WITH DIFFE RENTI AL/PL ATELE T lymphs 24 % not estab. Not Available [facility] ([facility]) [address] [facility], [place], [address], 06/20/2021 12:10:39 06/19/19 22 06/19/2021 CBC WITH DIFFE RENTI AL/PL ATELE T monocytes 9 % not estab. Not Available [facility] ([facility]) [address] [facility], [place], [address], 06/20/2021 12:10:39 06/19/19 22 06/19/2021 CBC WITH DIFFE RENTI AL/PL ATELE T eos 0 % not estab. Not Available [facility] ([facility]) [address] [facility], [place], [address], 06/20/2021 12:10:39 06/19/19 22 06/19/2021 CBC WITH DIFFE RENTI AL/PL ATELE T basos 0 % not estab. Not Available [facility] ([facility]) [address] [facility], [place], [address], 06/20/2021 12:10:39 06/19/19 22 06/19/2021 CBC WITH DIFFE RENTI AL/PL ATELE T immature cells 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 Not Available [facility] ([facility]) [address] [facility], [place], [address], 06/20/2021 12:10:39 06/19/19 22 06/19/2021 CBC WITH DIFFE RENTI AL/PL ATELE T neutrophils (absolute) 3.7 x10e3 /uL 1.4-7. 0 Not Available [facility] ([facility]) [address] [place], [address], 06/20/2021 12:10:39 06/19/19 22 06/19/2021 CBC WITH DIFFE RENTI AL/PL ATELE T lymphs (absolute) 1.4 x10e3 /uL 0.7-3. 1 Not Available [facility] ([facility]) [address] [place], [address], 06/20/2021 12:10:39 06/19/19 22 06/19/2021 CBC WITH DIFFE RENTI AL/PL ATELE T monocytes(ab solute) 0.5 x10e3 /uL 0.1-0. 9 Not Available [facility] ([facility]) [address] [place], [address], 06/20/2021 12:10:39 06/19/19 22 06/19/2021 CBC WITH DIFFE RENTI AL/PL ATELE T eos (absolute) 0.0 x10e3 /uL 0.0-0. 4 Not Available [facility] ([facility]) [address] [facility], [place], [address], 06/20/2021 12:10:39 06/19/19 22 06/19/2021 CBC WITH DIFFE RENTI AL/PL ATELE T baso (absolute) 0.0 x10e3 /uL 0.0-0. 2 Not Available [facility] ([facility]) [address] [facility], [place], [address], 06/20/2021 12:10:39 06/19/19 22 06/19/2021 CBC WITH DIFFE RENTI AL/PL ATELE T immature granulocytes 0 % not estab. Not Available [facility] ([facility]) [address] [facility], [place], [address], 06/20/2021 12:10:39 06/19/19 22 06/19/2021 CBC WITH DIFFE RENTI AL/PL ATELE T immature grans (abs) 0.0 x10e3 /uL 0.0-0. 1 Not Available [facility] ([facility]) [address] [facility], [place], [address], 06/20/2021 12:10:39 06/19/19 22 06/19/2021 CBC WITH DIFFE RENTI AL/PL ATELE T NRBC [employer]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 Not Available [facility] ([facility]) [address] [facility], [place], [address], 06/20/2021 12:10:39 06/19/19 22 06/19/2021 CBC WITH DIFFE RENTI AL/PL ATELE T hematology comments: [employer]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 Not Available [facility] ([facility]) [address] [facility], [place], [address], 06/20/2021 12:10:39 02/08/20 22 06/20/2021 UA WITH CULTU RE REFLE X specific gravity 1.017 1.005- 1.030 Not Available [facility] ([facility]) [address] [place], [address], 06/20/2021 12:10:39 06/19/19 22 06/20/2021 UA WITH CULTU RE REFLE X pH 6.0 5.0-7. 5 Not Available [facility] ([facility]) [address] [facility], [place], [address], 06/20/2021 12:10:39 06/19/19 22 06/20/2021 UA WITH CULTU RE REFLE X urine-color Yellow yellow Not Available [facility] ([facility]) [address] [place], [address], 06/20/2021 12:10:39 06/19/19 22 06/20/2021 UA WITH CULTU RE REFLE X appearance Clear clear Not Available [facility] ([facility]) [address] [place], [address], 06/20/2021 12:10:39 06/19/19 22 06/20/2021 UA WITH CULTU RE REFLE X WBC esterase Negati ve negati ve Not Available [facility] ([facility]) [address] [place], [address], 06/20/2021 12:10:39 06/19/19 22 06/20/2021 UA WITH CULTU RE REFLE X protein 1+ negati ve/tra ce abnormal Not Available [facility] ([facility]) [address] [place], [address], 06/20/2021 12:10:39 06/19/19 22 06/20/2021 UA WITH CULTU RE REFLE X glucose Negati ve negati ve Not Available [facility] ([facility]) [address] [place], [address], 06/20/2021 12:10:39 06/19/19 22 06/20/2021 UA WITH CULTU RE REFLE X ketones Negati ve negati ve Not Available [facility] ([facility]) [address] [place], [address], 06/20/2021 12:10:39 06/19/19 22 06/20/2021 UA WITH CULTU RE REFLE X occult blood Negati ve negati ve Not Available [facility] ([facility]) [address] [place], [address], 06/20/2021 12:10:39 06/19/19 22 06/20/2021 UA WITH CULTU RE REFLE X bilirubin Negati ve negati ve Not Available [facility] ([facility]) [address] [place], [address], 06/20/2021 12:10:39 06/19/19 22 06/20/2021 UA WITH CULTU RE REFLE X urobilinogen ,semi-qn 1.0 mg/dL 0.2-1. 0 Not Available [facility] ([facility]) [address] [place], [address], 06/20/2021 12:10:39 06/19/19 22 06/20/2021 UA WITH CULTU RE REFLE X nitrite, urine Negati ve negati ve Not Available [facility] ([facility]) [address] [place], [address], 06/20/2021 12:10:39 06/19/19 22 06/20/2021 UA WITH CULTU RE REFLE X microscopic examination See below: Micro scopi c was indic ated and was perfo rmed. Not Available [facility] ([facility]) [address] [place], [address], 06/20/2021 12:10:39 06/19/19 22 06/20/2021 UA WITH CULTU RE REFLE X WBC None seen /hpf 0 - 5 Not Available [facility] ([facility]) [address], [place], [address], 06/20/2021 12:10:39 06/19/19 22 06/20/2021 UA WITH CULTU RE REFLE X RBC None seen /hpf 0 - 2 Not Available [facility] ([facility]) [address], [place], [address], 06/20/2021 12:10:39 06/19/19 22 06/20/2021 UA WITH CULTU RE REFLE X epithelial cells (non renal) None seen /hpf 0 - 10 Not Available [facility] ([facility]) [address], [place], [address], 06/20/2021 12:10:39 06/19/19 22 06/20/2021 UA WITH CULTU RE REFLE X epithelial cells (renal) INTEGRATED CIRCUIT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 Not Available [facility] ([facility]) [address], [place], [address], 06/20/2021 12:10:39 06/19/19 22 06/20/2021 UA WITH CULTU RE REFLE X casts None seen /lpf none seen Not Available [facility] ([facility]) [address], [place], [address], 06/20/2021 12:10:39 06/19/19 22 06/20/2021 UA WITH CULTU RE REFLE X cast type [employer]TEGRATED CIRCUIT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 Not Available [facility] ([facility]) [address], [place], [address], 06/20/2021 12:10:39 06/19/19 22 06/20/2021 UA WITH CULTU RE REFLE X crystals INTEGRATED CIRCUIT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 Not Available [facility] ([facility]) [address], [place], [address], 06/20/2021 12:10:39 06/19/19 22 06/20/2021 UA WITH CULTU RE REFLE X crystal type INTEGRATED CIRCUIT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 Not Available [facility] ([facility]) [address] [facility], [place], [address], 06/20/2021 12:10:39 06/19/19 22 06/20/2021 UA WITH CULTU RE REFLE X mucus threads INTEGRATED CIRCUIT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 Not Available [facility] ([facility]) [address] [facility], [place], [address], 06/20/2021 12:10:39 06/19/19 22 06/20/2021 UA WITH CULTU RE REFLE X bacteria None seen none seen/f ew Not Available [facility] ([facility]) [address] [facility], [place], [address], 06/20/2021 12:10:39 06/19/19 22 06/20/2021 UA WITH CULTU RE REFLE X yeast [employer]TEGRATED CIRCUIT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 Not Available [facility] ([facility]) [address] [facility], [place], [address], 06/20/2021 12:10:39 06/19/19 22 06/20/2021 UA WITH CULTU RE REFLE X trichomonas [employer]TEGRATED CIRCUIT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 Not Available [facility] ([facility]) [address] [facility], [place], [address], 06/20/2021 12:10:39 06/19/19 22 06/20/2021 UA WITH CULTU RE REFLE X comment INTEGRATED CIRCUIT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 Not Available [facility] ([facility]) [address] [place], [address], 06/20/2021 12:10:39 06/19/19 22 06/20/2021 UA WITH CULTU RE REFLE X urinalysis reflex Commen t This speci men will not refle x to a Urine Cultu re. Not Available [facility] ([facility]) [address] [place], [address], 06/20/2021 12:10:39 06/19/19 22 06/20/2021 LIPID PANEL cholesterol, total 166 mg/dL 100-19 9 Not Available [facility] ([facility]) [address] [place], [address], 06/20/2021 12:10:40 06/19/19 22 06/20/2021 LIPID PANEL triglyceride s 143 mg/dL 0-149 Not Available [facility] ([facility]) [address] [facility] [place], [address], 06/20/2021 12:10:40 06/19/19 22 06/20/2021 LIPID PANEL HDL cholesterol 51 mg/dL >39 Not Available [facility] ([facility]) [address] [facility] [place], [address], 06/20/2021 12:10:40 06/19/19 22 06/20/2021 LIPID PANEL VLDL cholesterol dustin 25 mg/dL 5-40 Not Available [facility] ([facility]) [address] [facility], [place], [address], 06/20/2021 12:10:40 06/19/19 22 06/20/2021 LIPID PANEL LDL chol calc (nih) 90 mg/dL 0-99 Not Available [facility] ([facility]) [address] [facility] [place], [address], 06/20/2021 12:10:40 06/19/19 22 06/20/2021 LIPID PANEL comment: INTEGRATED CIRCUIT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 Not Available [facility] ([facility]) [address] [facility] [place], [address], 06/20/2021 12:10:40 06/19/19 22 06/20/2021 VITAM IN B12 AND FOLAT E vitamin B12 464 pg/mL 232-12 45 Not Available [facility] ([facility]) [address] [facility] [place], [address], 06/20/2021 12:10:40 06/19/19 22 06/20/2021 VITAM IN B12 AND FOLAT E folate (folic acid), serum 13.2 NG/mL >3.0 A serum folat e zackery ntrat ion of less than 3.1 ng/mL is consi dered to repre sent clini dustin defic iency . Not Available [facility] ([facility]) [address] [facility], [place], [address], 06/20/2021 12:10:40 06/19/19 22 06/20/2021 HEMOG LOBIN A1C hemoglobin A1C 6.1 % 4.8-5. 6 above high normal Predi abete s: 5.7 - 6.4 Diabe camden: >6.4 Glyce reginald contr ol for adult s with diabe camden: <7.0 Not Available [facility] ([facility]) [address] [facility], [place], [address], 06/20/2021 12:10:41 06/19/19 22 06/20/2021 PROST ATE-S PECIF IC AG prostate specific Ag 1.5 NG/mL 0.0-4. 0 Pratima ECLIA metho dolog y. Accor ding to the Ameri can Urolo gical Assoc iatio n, Serum PSA shoul d decre ase and remai n at undet ectab le level s after radic al prost atect marlo. The AUA defin es bioch emica l recur rence as an initi al PSA value 0.2 ng/mL or great er follo wed by a subse quent confi rmato ry PSA value 0.2 ng/mL or great er. Value s obtai kaylee with diffe rent assay metho ds or kits canno t be used inter barnes eaziay . Resul ts canno t be inter prete d as absol chehalis evide nce of the prese nce or absen ce of nicolas rodriguez se. Not Available [facility] ([facility]) [address] [facility], [place], [address], 06/20/2021 12:10:41 06/19/19 22 06/20/2021 TSH REFLE X TO T4F TSH 1.570 uIU/m L 0.450- 4.500 Not Available [facility] ([facility]) [address] [facility], [place], [address], 06/20/2021 12:10:42 07/09/19 22 07/09/2021 COLOG UARD cologuard result reportable Negati ve negati ve NEGAT MAHENDRA TEST RESUL T. A negat mahendra Colog uard resul t indic ates a low likel ihood that a color ectal cance r (CRC) or advan obdulio adeno ma (nidhi omato us polyp s with more advan obdulio pre-m align ant featu res) is prese nt. The chanc e that a perso n with a negat mahendra Colog uard test has a color ectal cance r is less than 1 in 1500 (nega tive predi ctive value >99.9 %) or has an advan obdulio adeno ma is less than 5.3% (nega tive predi ctive value 94.7% ). These data are based on a prosp ectiv e cross -sect ional study of 10,00 0 indiv idual s at [place] [facility] risk for color ectal cance r who were scree kaylee with both Colog uard and colon oscop y. (Mercy Butler et al, N Engl J Med 2014; 370(1 4):12 86-12 97) The burke l value (refe rence range ) for this assay is negat mahendra. COLOG UARD RE-SC CORINNA FORD RECOM MENDA TION: Perio dic color ectal cance r scree pablo is an impor tant part of preve ntive healt hcare for asymp tomat ic indiv idual s at [place] risk for color ectal cance r. Follo wing a negat mahendra Colog uard resul t, the Ameri can Cance r Socie ty and U.S. Multi -Soci ety Task Force scree pablo guide lines recom mend a Colog uard re-sc reeni ng inter melvin of 3 years . Refer ences : Ameri can Cance r Socie ty Guide line for Color ectal Cance r Scree pablo: https ://amanda w.can cer.o rg/ca ncer/ colon -rect al-ca ncer/ detec tion- diagn osis- stagi ng/ac s-rec ommen datio ns.ht ml.; Salvatore DK, Nicole morfin CR, Luz guzman JK, Color ectal Cance r Scree pablo: Recom menda tions for Physi cians and Patie nts from the U.S. Multi -Soci ety Task Force on Color ectal Cance r Scree pablo , Thomas Montez oente rolog y 2017; 112:1 016-1 030. TEST DESCR IPTIO N: [facility] site algor ithmi c kierra sis of stool DNA-b ioyahir zavaleta with hemog lobin immun oassa y. Quant itati ve value s of indiv idual bioma rkers are not repor table and are not assoc iated with indiv idual bioma rker resul t refer ence range s. Colog uard is inten ded for color ectal cance r scree pablo of adult s of eithe r sex, 45 years or older , who are at [facility] for color ectal cance r (CRC) . Colog uard has been appro amparo for use by the [place]. FDA. The perfo rmanc e of Colog uard was estab lishe d in a cross secti onal study of [facility] adult s aged 50-84 . Colog uard perfo rmanc e in patie nts ages 45 to 49 years was estim ated by sub-g roup kierra sis of near- age group s. Colon oscop ies perfo rmed for a posit mahendra resul t may find as the most clini velasquez signi lino chand n: color ectal cance r [4.0% ], advan obdulio adeno ma (incl uding sessi le carmelo janet polyp s great er than or equal to 1cm diame ter) [20%] or non- advan obdulio adeno ma [31%] ; or no color ectal neopl steffanie [45%] . These estim ates are deriv ed from a prosp ectiv e cross -sect ional scree pablo study of ,00 0 [facility]ual [facility] risk for color ectal cance r who were scree kaylee with both Colog uard and colon oscop y. (Mercy Gonzalez al, N Engl J Med 2014; 370(1 4):12 86-12 97.) Colog uard may produ ce a false negat mahendra or false posit mahendra resul t (no color ectal cance r or preca ncero us polyp prese nt at colon oscop y follo w up). A negat mahendra Colog uard test resul t does not guara ntee the absen ce of CRC or advan obdulio adeno ma (pre- cance r). The curre nt Colog uard scree pablo inter melvin is every 3 years . (Amer ican Cance r Socie ty and U.S. Multi -Soci ety Task Force ). Colog uard perfo rmanc e data in a 0 patie nt pivot al study using colon oscop y as the refer ence metho d can be acces sed at the follo wing locat ion: www.e xactl abs.c om/re sulneto . Addit ional descr iptio n of the Colog uard test proce ss, warni ngs and preca ution s can be found at www.c ashvin wallaced.c om. Not Available [facility] (Cologuard Orders Only) [address], [place], [address], 07/16/2021 22:28:58 06/18/19 23 06/19/2022 CBC WITH DIFFE RENTI AL/PL ATELE T WBC 5.6 x10e3 /uL 3.4-10 .8 Not Available [facility] ([facility]) [address] [facility], [place], [address], 06/20/2022 02:08:46 06/18/19 23 06/19/2022 CBC WITH DIFFE RENTI AL/PL ATELE T RBC 5.09 x10e6 /uL 4.14-5 .80 Not Available [facility] ([facility]) [address] [facility], [place], [address], 06/20/2022 02:08:46 06/18/19 23 06/19/2022 CBC WITH DIFFE RENTI AL/PL ATELE T hemoglobin 15.9 g/dL 13.0-1 7.7 Not Available [facility] ([facility]) [address] [facility], [place], [address], 06/20/2022 02:08:46 06/18/19 23 06/19/2022 CBC WITH DIFFE RENTI AL/PL ATELE T hematocrit 48.2 % 37.5-5 1.0 Not Available [facility] ([facility]) [address] [facility], [place], [address], 06/20/2022 02:08:46 06/18/19 23 06/19/2022 CBC WITH DIFFE RENTI AL/PL ATELE T MCV 95 fL 79-97 Not Available [facility] ([facility]) [address] [facility], [place], [address], 06/20/2022 02:08:46 06/18/19 23 06/19/2022 CBC WITH DIFFE RENTI AL/PL ATELE T MCH 31.2 pg 26.6-3 3.0 Not Available [facility] ([facility]) [address] [facility], [place], [address], 06/20/2022 02:08:46 06/18/19 23 06/19/2022 CBC WITH DIFFE RENTI AL/PL ATELE T MCHC 33.0 g/dL 31.5-3 5.7 Not Available [facility] ([facility]) [address] [place], [address], 06/20/2022 02:08:46 06/18/19 23 06/19/2022 CBC WITH DIFFE RENTI AL/PL ATELE T RDW 13.3 % 11.6-1 5.4 Not Available [facility] ([facility]) [address] [facility], [place], [address], 06/20/2022 02:08:46 06/18/19 23 06/19/2022 CBC WITH DIFFE RENTI AL/PL ATELE T platelets 304 x10e3 /uL 150-45 0 Not Available [facility] ([facility]) [address] [facility], [place], [address], 06/20/2022 02:08:46 06/18/19 23 06/19/2022 CBC WITH DIFFE RENTI AL/PL ATELE T neutrophils 61 % not estab. Not Available [facility] ([facility]) [address] [facility], [place], [address], 06/20/2022 02:08:46 06/18/19 23 06/19/2022 CBC WITH DIFFE RENTI AL/PL ATELE T lymphs 27 % not estab. Not Available [facility] ([facility]) [address] [facility], [place], [address], 06/20/2022 02:08:46 06/18/19 23 06/19/2022 CBC WITH DIFFE RENTI AL/PL ATELE T monocytes 10 % not estab. Not Available [facility] ([facility]) [address] [facility], [place], [address], 06/20/2022 02:08:46 06/18/19 23 06/19/2022 CBC WITH DIFFE RENTI AL/PL ATELE T eos 1 % not estab. Not Available [facility] ([facility]) [address] [facility], [place], [address], 06/20/2022 02:08:46 06/18/19 23 06/19/2022 CBC WITH DIFFE RENTI AL/PL ATELE T basos 1 % not estab. Not Available [facility] ([facility]) [address] [facility], [place], [address], 06/20/2022 02:08:46 06/18/19 23 06/19/2022 CBC WITH DIFFE RENTI AL/PL ATELE T immature cells INTEGRATED CIRCUIT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 Not Available [facility] ([facility]) [address] [place], [address], 06/20/2022 02:08:46 06/18/19 23 06/19/2022 CBC WITH DIFFE RENTI AL/PL ATELE T neutrophils (absolute) 3.3 x10e3 /uL 1.4-7. 0 Not Available [facility] ([facility]) [address] [place], [address], 06/20/2022 02:08:46 06/18/19 23 06/19/2022 CBC WITH DIFFE RENTI AL/PL ATELE T lymphs (absolute) 1.5 x10e3 /uL 0.7-3. 1 Not Available [facility] ([facility]) [address] [place], [address], 06/20/2022 02:08:46 06/18/19 23 06/19/2022 CBC WITH DIFFE RENTI AL/PL ATELE T monocytes(ab solute) 0.6 x10e3 /uL 0.1-0. 9 Not Available [facility] ([facility]) [address] [place], [address], 06/20/2022 02:08:46 06/18/19 23 06/19/2022 CBC WITH DIFFE RENTI AL/PL ATELE T eos (absolute) 0.1 x10e3 /uL 0.0-0. 4 Not Available [facility] ([facility]) [address] [place], [address], 06/20/2022 02:08:46 06/18/19 23 06/19/2022 CBC WITH DIFFE RENTI AL/PL ATELE T baso (absolute) 0.0 x10e3 /uL 0.0-0. 2 Not Available [facility] ([facility]) [address] [place], [address], 06/20/2022 02:08:46 06/18/19 23 06/19/2022 CBC WITH DIFFE RENTI AL/PL ATELE T immature granulocytes 0 % not estab. Not Available [facility] ([facility]) [address] [facility], [place], [address], 06/20/2022 02:08:46 06/18/19 23 06/19/2022 CBC WITH DIFFE RENTI AL/PL ATELE T immature grans (abs) 0.0 x10e3 /uL 0.0-0. 1 Not Available [facility] ([facility]) [address] [facility], [place], [address], 06/20/2022 02:08:46 06/18/19 23 06/19/2022 CBC WITH DIFFE RENTI AL/PL ATELE T NRBC INTEGRATED CIRCUIT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 Not Available [facility] ([facility]) [address] [facility], [place], [address], 06/20/2022 02:08:46 06/18/19 23 06/19/2022 CBC WITH DIFFE RENTI AL/PL ATELE T hematology comments: INTEGRATED CIRCUIT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 Not Available [facility] ([facility]) [address] [facility], [place], [address], 06/20/2022 02:08:46 06/18/19 23 06/19/2022 COMP. METAB OLIC PANEL (14) glucose 104 mg/dL 70-99 above high normal Not Available [facility] ([facility]) [address] [facility], [place], [address], 06/20/2022 02:08:47 06/18/19 23 06/19/2022 COMP. METAB OLIC PANEL (14) BUN 13 mg/dL 8-27 Not Available [facility] ([facility]) [address] [place], [address], 06/20/2022 02:08:47 06/18/19 23 06/19/2022 COMP. METAB OLIC PANEL (14) creatinine 1.18 mg/dL 0.76-1 .27 Not Available [facility] ([facility]) [address] [facility], [place], [address], 06/20/2022 02:08:47 06/18/19 23 06/19/2022 COMP. METAB OLIC PANEL (14) eGFR 66 mL/mi n/1.7 3 >59 Not Available [facility] ([facility]) [address] [facility], [place], [address], 06/20/2022 02:08:47 06/18/19 23 06/19/2022 COMP. METAB OLIC PANEL (14) BUN/creatini ne ratio 11 10-24 Not Available [facility] ([facility]) [address] [facility], [place], [address], 06/20/2022 02:08:47 06/18/19 23 06/19/2022 COMP. METAB OLIC PANEL (14) sodium 142 mmol/ L 134-14 4 Not Available [facility] ([facility]) [address] [place], [address], 06/20/2022 02:08:47 06/18/19 23 06/19/2022 COMP. METAB OLIC PANEL (14) potassium 4.6 mmol/ L 3.5-5. 2 Not Available [facility] ([facility]) [address] [facility], [place], [address], 06/20/2022 02:08:47 06/18/19 23 06/19/2022 COMP. METAB OLIC PANEL (14) chloride 103 mmol/ L 96-106 Not Available [facility] ([facility]) [address] [place], [address], 06/20/2022 02:08:47 06/18/19 23 06/19/2022 COMP. METAB OLIC PANEL (14) carbon dioxide, total 27 mmol/ L 20-29 Not Available [facility] ([facility]) [address] [place], [address], 06/20/2022 02:08:47 06/18/19 23 06/19/2022 COMP. METAB OLIC PANEL (14) calcium 9.4 mg/dL 8.6-10 .2 Not Available [facility] ([facility]) [address] [place], [address], 06/20/2022 02:08:47 06/18/19 23 06/19/2022 COMP. METAB OLIC PANEL (14) protein, total 6.5 g/dL 6.0-8. 5 Not Available [facility] ([facility]) [address] [place], [address], 06/20/2022 02:08:47 06/18/19 23 06/19/2022 COMP. METAB OLIC PANEL (14) albumin 4.4 g/dL 3.7-4. 7 Not Available [facility] ([facility]) [address] [place], [address], 06/20/2022 02:08:47 06/18/19 23 06/19/2022 COMP. METAB OLIC PANEL (14) globulin, total 2.1 g/dL 1.5-4. 5 Not Available [facility] ([facility]) [address] [place], [address], 06/20/2022 02:08:47 06/18/19 23 06/19/2022 COMP. METAB OLIC PANEL (14) A/G ratio 2.1 1.2-2. 2 Not Available [facility] ([facility]) [address] [place], [address], 06/20/2022 02:08:47 06/18/19 23 06/19/2022 COMP. METAB OLIC PANEL (14) bilirubin, total 1.8 mg/dL 0.0-1. 2 above high normal Not Available [facility] ([facility]) [address], [place], [address], 06/20/2022 02:08:47 06/18/19 23 06/19/2022 COMP. METAB OLIC PANEL (14) alkaline phosphatase 72 IU/L 44-121 Not Available [facility] ([facility]) [address], [place], [address], 06/20/2022 02:08:47 06/18/19 23 06/19/2022 COMP. METAB OLIC PANEL (14) AST (SGOT) 17 IU/L 0-40 Not Available [facility] ([facility]) [address] [facility], [place], [address], 06/20/2022 02:08:47 06/18/19 23 06/19/2022 COMP. METAB OLIC PANEL (14) ALT (SGPT) 16 IU/L 0-44 Not Available [facility] ([facility]) [address] [facility], [place], [address], 06/20/2022 02:08:47 06/18/19 23 06/20/2022 UA WITH CULTU RE REFLE X specific gravity 1.008 1.005- 1.030 Not Available [facility] ([facility]) [address] [facility], [place], [address], 06/20/2022 02:08:48 06/18/19 23 06/20/2022 UA WITH CULTU RE REFLE X pH 6.5 5.0-7. 5 Not Available [facility] ([facility]) [address] [facility], [place], [address], 06/20/2022 02:08:48 06/18/19 23 06/20/2022 UA WITH CULTU RE REFLE X urine-color Yellow yellow Not Available [facility] ([facility]) [address] [facility], [place], [address], 06/20/2022 02:08:48 06/18/19 23 06/20/2022 UA WITH CULTU RE REFLE X appearance Clear clear Not Available [facility] ([facility]) [address] [facility], [place], [address], 06/20/2022 02:08:48 06/18/19 23 06/20/2022 UA WITH CULTU RE REFLE X WBC esterase Negati ve negati ve Not Available [facility] ([facility]) [address] [facility], [place], [address], 06/20/2022 02:08:48 06/18/19 23 06/20/2022 UA WITH CULTU RE REFLE X protein 1+ negati ve/tra ce abnormal Not Available [facility] ([facility]) [address] [facility], [place], [address], 06/20/2022 02:08:48 06/18/19 23 06/20/2022 UA WITH CULTU RE REFLE X glucose Negati ve negati ve Not Available [facility] ([facility]) [address] [facility], [place], [address], 06/20/2022 02:08:48 06/18/19 23 06/20/2022 UA WITH CULTU RE REFLE X ketones Negati ve negati ve Not Available [facility] ([facility]) [address] [facility], [place], [address], 06/20/2022 02:08:48 06/18/19 23 06/20/2022 UA WITH CULTU RE REFLE X occult blood Negati ve negati ve Not Available [facility] ([facility]) [address] [place], [address], 06/20/2022 02:08:48 06/18/19 23 06/20/2022 UA WITH CULTU RE REFLE X bilirubin Negati ve negati ve Not Available [facility] ([facility]) [address] [place], [address], 06/20/2022 02:08:48 06/18/19 23 06/20/2022 UA WITH CULTU RE REFLE X urobilinogen ,semi-qn 0.2 mg/dL 0.2-1. 0 Not Available [facility] ([facility]) [address] [facility], [place], [address], 06/20/2022 02:08:48 06/18/19 23 06/20/2022 UA WITH CULTU RE REFLE X nitrite, urine Negati ve negati ve Not Available [facility] ([facility]) [address] [facility], [place], [address], 06/20/2022 02:08:48 06/18/19 23 06/20/2022 UA WITH CULTU RE REFLE X microscopic examination See below: Micro scopi c was indic ated and was perfo rmed. Not Available [facility] [facility]) [address] [facility], [place], [address], 06/20/2022 02:08:48 06/18/19 23 06/20/2022 UA WITH CULTU RE REFLE X WBC None seen /hpf 0 - 5 Not Available [facility] ([facility]) [address] [facility], [place], [address], 06/20/2022 02:08:48 06/18/19 23 06/20/2022 UA WITH CULTU RE REFLE X RBC None seen /hpf 0 - 2 Not Available [facility] ([facility]) [address] [place], [address], 06/20/2022 02:08:48 06/18/19 23 06/20/2022 UA WITH CULTU RE REFLE X epithelial cells (non renal) None seen /hpf 0 - 10 Not Available [facility] ([facility]) [address] [place], [address], 06/20/2022 02:08:48 06/18/19 23 06/20/2022 UA WITH CULTU RE REFLE X epithelial cells (renal) [employer]TEGRATED CIRCUIT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 Not Available [facility] ([facility]) [address], [place], [address], 06/20/2022 02:08:48 06/18/19 23 06/20/2022 UA WITH CULTU RE REFLE X casts None seen /lpf none seen Not Available [facility] ([facility]) [address], [place], [address], 06/20/2022 02:08:48 06/18/19 23 06/20/2022 UA WITH CULTU RE REFLE X cast type [employer]TE[employer] CIRCUIT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 Not Available [facility] ([facility]) [address] [facility], [place], [address], 06/20/2022 02:08:48 06/18/19 23 06/20/2022 UA WITH CULTU RE REFLE X crystals [employer]TE[employer] CIRCUIT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 Not Available [facility] ([facility]) [address] [facility], [place], [address], 06/20/2022 02:08:48 06/18/19 23 06/20/2022 UA WITH CULTU RE REFLE X crystal type INTEGRATED CIRCUIT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 Not Available [facility] ([facility]) [address] [facility], [place], [address], 06/20/2022 02:08:48 06/18/19 23 06/20/2022 UA WITH CULTU RE REFLE X mucus threads [employer]TE[employer] CIRCUIT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 Not Available [facility] ([facility]) [address] [facility], [place], [address], 06/20/2022 02:08:48 06/18/19 23 06/20/2022 UA WITH CULTU RE REFLE X bacteria None seen none seen/f ew Not Available [facility] ([facility]) [address] [facility], [place], [address], 06/20/2022 02:08:48 02/07/06/20/2022 UA WITH CULTU RE REFLE X yeast [employer]TE[employer]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 Not Available [facility] ([facility]) [address] [facility], [place], [address], 06/20/2022 02:08:48 06/18/19 23 06/20/2022 UA WITH CULTU RE REFLE X trichomonas [employer]TE[employer]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 Not Available [facility] ([facility]) [address] [facility], [place], [address], 06/20/2022 02:08:48 06/18/19 23 06/20/2022 UA WITH CULTU RE REFLE X comment [employer]TE[employer] CIRCUIT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 Not Available [facility] ([facility]) [address] [facility], [place], [address], 06/20/2022 02:08:48 06/18/19 23 06/20/2022 UA WITH CULTU RE REFLE X urinalysis reflex Commen t This speci men will not refle x to a Urine Cultu re. Not Available [facility] ([facility]) [address] [facility], [place], [address], 06/20/2022 02:08:48 06/18/19 23 06/19/2022 LIPID PANEL cholesterol, total 180 mg/dL 100-19 9 Not Available [facility] ([facility]) [address] [facility], [place], [address], 06/20/2022 02:08:48 06/18/19 23 06/19/2022 LIPID PANEL triglyceride s 169 mg/dL 0-149 above high normal Not Available [facility] ([facility]) [address] [place], [address], 06/20/2022 02:08:48 06/18/19 23 06/19/2022 LIPID PANEL HDL cholesterol 56 mg/dL >39 Not Available [facility] ([facility]) [address] [facility], [place], [address], 06/20/2022 02:08:48 06/18/19 23 06/19/2022 LIPID PANEL VLDL cholesterol dustin 29 mg/dL 5-40 Not Available [facility] ([facility]) [address] [facility], [place], [address], 06/20/2022 02:08:48 06/18/19 23 06/19/2022 LIPID PANEL LDL chol calc ([facility]) 95 mg/dL 0-99 Not Available [facility] ([facility]) [address] [place], [address], 06/20/2022 02:08:48 06/18/19 23 06/19/2022 LIPID PANEL comment: INTEGRATED CIRCUIT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 Not Available [facility] ([facility]) [address] [facility], [place], [address], 06/20/2022 02:08:48 06/18/19 23 06/19/2022 VITAM IN B12 AND FOLAT E vitamin B12 474 pg/mL 232-12 45 Not Available [facility] ([facility]) [address] [facility], [place], [address], 06/20/2022 02:08:49 06/18/19 23 06/19/2022 VITAM IN B12 AND FOLAT E folate (folic acid), serum 14.9 NG/mL >3.0 A serum folat e zackery ntrat ion of less than 3.1 ng/mL is consi dered to repre sent clini dustin defic iency . Not Available [facility] ([facility]) [address] [facility], [place], [address], 06/20/2022 02:08:49 06/18/19 23 06/19/2022 HEMOG LOBIN A1C hemoglobin A1C 6.2 % 4.8-5. 6 above high normal Predi abete s: 5.7 - 6.4 Diabe camden: >6.4 Glyce reginald contr ol for adult s with diabe [place]: <7.0 Not Available [facility] ([facility]) [address] [place], [address], 06/20/2022 02:08:49 06/18/19 23 06/19/2022 PROST ATE-S PECIF IC AG prostate specific Ag 2.3 NG/mL 0.0-4. 0 Pratima ECLIA metho dolog y. Accor ding to the Ameri can [employer] g[employer] iatio n, Serum PSA shoul d decre ase and remai n at undet ectab le level s after radic al prost atect marlo. The AUA defin es bioch emica l recur rence as an initi al PSA value 0.2 ng/mL or great er follo wed by a subse quent confi rmato ry PSA value 0.2 ng/mL or great er. Value s obtai kaylee with diffe rent assay metho ds or kits canno t be used inter barnes eay . Resul ts canno t be inter prete d as absol [place] evide nce of the prese nce or absen ce of [facility] se. Not Available [facility] ([facility]) [address] [place], [address], 06/20/2022 02:08:50 06/18/1906/19/2022 TSH REFLE X TO T4F TSH 1.590 uIU/m L 0.450- 4.500 Not Available [facility] ([facility]) [address] [place], [address], 06/20/2022 02:08:50 05/23/19 24 05/24/2023 CMP14 +EGFR glucose 111 mg/dL 70-99 above high normal Not Available [facility] ([facility]) [address] [place], [address], 05/26/2023 03:18:26 05/23/19 24 05/24/2023 CMP14 +EGFR BUN 19 mg/dL 8-27 Not Available [facility] ([facility]) [address] [place], [address], 05/26/2023 03:18:26 05/23/19 24 05/24/2023 CMP14 +EGFR creatinine 1.28 mg/dL 0.76-1 .27 above high normal Not Available [facility] ([facility]) [address] [place], [address], 05/26/2023 03:18:26 05/23/19 24 05/24/2023 CMP14 +EGFR eGFR 59 mL/mi n/1.7 3 >59 below low normal Not Available [facility] ([facility]) [address] [place], [address], 05/26/2023 03:18:26 05/23/1905/24/2023 CMP14 +EGFR BUN/creatini ne ratio 03-04 Not Available [facility] ([facility]) [address] [facility], [place], [address], 05/26/2023 03:18:26 05/23/1905/24/2023 CMP14 +EGFR sodium 143 mmol/ L 134-14 4 Not Available [facility] ([facility]) [address] [place], [address], 05/26/2023 03:18:26 05/23/19 24 05/24/2023 CMP14 +EGFR potassium 4.4 mmol/ L 3.5-5. 2 Not Available [facility] ([facility]) [address] [place], [address], 05/26/2023 03:18:26 05/23/1905/24/2023 CMP14 +EGFR chloride 104 mmol/ L 96-106 Not Available [facility] ([facility]) [address] [place], [address], 05/26/2023 03:18:26 05/23/1905/24/2023 CMP14 +EGFR carbon dioxide, total 25 mmol/ L 20- Not Available [facility] ([facility]) [address] [place], [address], 05/26/2023 03:18:26 05/23/19 24 05/24/2023 CMP14 +EGFR calcium 9.9 mg/dL 8.6-10 .2 Not Available [facility] ([facility]) [address] [facility], [place], [address], 05/26/2023 03:18:26 05/23/19 24 05/24/2023 CMP14 +EGFR protein, total 6.8 g/dL 6.0-8. 5 Not Available [facility] ([facility]) [address] [facility] [place], [address], 05/26/2023 03:18:26 05/23/19 24 05/24/2023 CMP14 +EGFR albumin 4.6 g/dL 3.8-4. 8 Not Available [facility] ([facility]) [address] [place], [address], 05/26/2023 03:18:26 05/23/19 24 05/24/2023 CMP14 +EGFR globulin, total 2.2 g/dL 1.5-4. 5 Not Available [facility] ([facility]) [address] [place], [address], 05/26/2023 03:18:26 05/23/19 24 05/24/2023 CMP14 +EGFR A/G ratio 2.1 1.2-2. 2 Not Available [facility] ([facility]) [address] [place], [address], 05/26/2023 03:18:26 05/23/19 24 05/24/2023 CMP14 +EGFR bilirubin, total 1.8 mg/dL 0.0-1. 2 above high normal Not Available [facility] ([facility]) [address] [place], [address], 05/26/2023 03:18:26 05/23/19 24 05/24/2023 CMP14 +EGFR alkaline phosphatase 82 IU/L 44-121 Not Available [facility] ([facility]) [address] [facility], [place], [address], 05/26/2023 03:18:26 05/23/19 24 05/24/2023 CMP14 +EGFR AST (SGOT) 17 IU/L 0-40 Not Available [facility] ([facility]) [address] [facility], [place], [address], 05/26/2023 03:18:26 05/23/19 24 05/24/2023 CMP14 +EGFR ALT (SGPT) 16 IU/L 0-44 Not Available [facility] ([facility]) [address] [facility], [place], [address], 05/26/2023 03:18:26 05/23/19 24 05/24/2023 CBC WITH DIFFE RENTI AL/PL ATELE T WBC 5.8 x10e3 /uL 3.4-10 .8 Not Available [facility] ([facility]) [address] [facility], [place], [address], 05/26/2023 03:18:27 05/23/19 24 05/24/2023 CBC WITH DIFFE RENTI AL/PL ATELE T RBC 4.88 x10e6 /uL 4.14-5 .80 Not Available [facility] ([facility]) [address] [facility], [place], [address], 05/26/2023 03:18:27 05/23/19 24 05/24/2023 CBC WITH DIFFE RENTI AL/PL ATELE T hemoglobin 15.5 g/dL 13.0-1 7.7 Not Available [facility] ([facility]) [address] [place], [address], 05/26/2023 03:18:27 05/23/19 24 05/24/2023 CBC WITH DIFFE RENTI AL/PL ATELE T hematocrit 46.9 % 37.5-5 1.0 Not Available [facility] ([facility]) [address] [facility], [place], [address], 05/26/2023 03:18:27 05/23/19 24 05/24/2023 CBC WITH DIFFE RENTI AL/PL ATELE T MCV 96 fL 79-97 Not Available [facility] ([facility]) [address] [facility], [place], [address], 05/26/2023 03:18:27 05/23/19 24 05/24/2023 CBC WITH DIFFE RENTI AL/PL ATELE T MCH 31.8 pg 26.6-3 3.0 Not Available [facility] ([facility]) [address] [facility], [place], [address], 05/26/2023 03:18:27 05/23/19 24 05/24/2023 CBC WITH DIFFE RENTI AL/PL ATELE T MCHC 33.0 g/dL 31.5-3 5.7 Not Available [facility] ([facility]) [address] [facility], [place], [address], 05/26/2023 03:18:27 05/23/19 24 05/24/2023 CBC WITH DIFFE RENTI AL/PL ATELE T RDW 13.8 % 11.6-1 5.4 Not Available [facility] ([facility]) [address] [facility], [place], [address], 05/26/2023 03:18:27 05/23/19 24 05/24/2023 CBC WITH DIFFE RENTI AL/PL ATELE T platelets 275 x10e3 /uL 150-45 0 Not Available [facility] ([facility]) [address] [facility], [place], [address], 05/26/2023 03:18:27 05/23/19 24 05/24/2023 CBC WITH DIFFE RENTI AL/PL ATELE T neutrophils 65 % not estab. Not Available [facility] ([facility]) [address] [facility], [place], [address], 05/26/2023 03:18:27 05/23/19 24 05/24/2023 CBC WITH DIFFE RENTI AL/PL ATELE T lymphs 22 % not estab. Not Available [facility] ([facility]) [address] [facility], [place], [address], 05/26/2023 03:18:27 05/23/19 24 05/24/2023 CBC WITH DIFFE RENTI AL/PL ATELE T monocytes 11 % not estab. Not Available [facility] ([facility]) [address] [facility], [place], [address], 05/26/2023 03:18:27 05/23/19 24 05/24/2023 CBC WITH DIFFE RENTI AL/PL ATELE T eos 1 % not estab. Not Available [facility] ([facility]) [address] [facility], [place], [address], 05/26/2023 03:18:27 05/23/19 24 05/24/2023 CBC WITH DIFFE RENTI AL/PL ATELE T basos 1 % not estab. Not Available [facility] ([facility]) [address] [facility], [place], [address], 05/26/2023 03:18:27 05/23/19 24 05/24/2023 CBC WITH DIFFE RENTI AL/PL ATELE T immature cells INTEGR[employer] CIRCUIT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 Not Available [facility] ([facility]) [address] [facility], [place], [address], 05/26/2023 03:18:27 05/23/19 24 05/24/2023 CBC WITH DIFFE RENTI AL/PL ATELE T neutrophils (absolute) 3.7 x10e3 /uL 1.4-7. 0 Not Available [facility] ([facility]) [address] [place], [address], 05/26/2023 03:18:27 05/23/19 24 05/24/2023 CBC WITH DIFFE RENTI AL/PL ATELE T lymphs (absolute) 1.3 x10e3 /uL 0.7-3. 1 Not Available [facility] ([facility]) [address] [facility], [place], [address], 05/26/2023 03:18:27 05/23/19 24 05/24/2023 CBC WITH DIFFE RENTI AL/PL ATELE T monocytes(ab solute) 0.7 x10e3 /uL 0.1-0. 9 Not Available [facility] ([facility]) [address] [facility], [place], [address], 05/26/2023 03:18:27 05/23/19 24 05/24/2023 CBC WITH DIFFE RENTI AL/PL ATELE T eos (absolute) 0.1 x10e3 /uL 0.0-0. 4 Not Available [facility] ([facility]) [address] [facility], [place], [address], 05/26/2023 03:18:27 05/23/19 24 05/24/2023 CBC WITH DIFFE RENTI AL/PL ATELE T baso (absolute) 0.1 x10e3 /uL 0.0-0. 2 Not Available [facility] ([facility]) [address] [facility], [place], [address], 05/26/2023 03:18:27 05/23/19 24 05/24/2023 CBC WITH DIFFE RENTI AL/PL ATELE T immature granulocytes 0 % not estab. Not Available [facility] ([facility]) [address] [place], [address], 05/26/2023 03:18:27 05/23/19 24 05/24/2023 CBC WITH DIFFE RENTI AL/PL ATELE T immature grans (abs) 0.0 x10e3 /uL 0.0-0. 1 Not Available [facility] ([place]) [address] [place], [address], 05/26/2023 03:18:27 05/23/19 24 05/24/2023 CBC WITH DIFFE RENTI AL/PL ATELE T NRBC [employer]TE[employer]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 Not Available [facility] ([facility]) [address] [facility], [place], [address], 05/26/2023 03:18:27 05/23/19 24 05/24/2023 CBC WITH DIFFE RENTI AL/PL ATELE T hematology comments: INTEGR[employer] CIRCUIT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 Not Available [facility] ([facility]) [address] [facility], [place], [address], 05/26/2023 03:18:27 05/23/19 24 05/24/2023 UA WITH CULTU RE REFLE X specific gravity 1.021 1.005- 1.030 Not Available [facility] ([facility]) [address] [facility], [place], [address], 05/26/2023 03:18:28 05/23/19 24 05/24/2023 UA WITH CULTU RE REFLE X pH 5.5 5.0-7. 5 Not Available [facility] ([facility]) [address] [facility], [place], [address], 05/26/2023 03:18:28 05/23/19 24 05/24/2023 UA WITH CULTU RE REFLE X urine-color Yellow yellow Not Available [facility] ([facility]) [address] [facility], [place], [address], 05/26/2023 03:18:28 05/23/19 24 05/24/2023 UA WITH CULTU RE REFLE X appearance Clear clear Not Available [facility] ([facility]) [address] [facility], [place], [address], 05/26/2023 03:18:28 05/23/19 24 05/24/2023 UA WITH CULTU RE REFLE X WBC esterase Negati ve negati ve Not Available [facility] ([facility]) [address] [facility], [place], [address], 05/26/2023 03:18:28 05/23/19 24 05/24/2023 UA WITH CULTU RE REFLE X protein 1+ negati ve/tra ce abnormal Not Available [facility] ([facility]) [address] [facility], [place], [address], 05/26/2023 03:18:28 05/23/19 24 05/24/2023 UA WITH CULTU RE REFLE X glucose Negati ve negati ve Not Available [facility] ([facility]) [address] [facility], [place], [address], 05/26/2023 03:18:28 05/23/19 24 05/24/2023 UA WITH CULTU RE REFLE X ketones Negati ve negati ve Not Available [facility] ([facility]) [address] [facility], [place], [address], 05/26/2023 03:18:28 05/23/19 24 05/24/2023 UA WITH CULTU RE REFLE X occult blood Negati ve negati ve Not Available [facility] ([facility]) [address] [facility], [place], [address], 05/26/2023 03:18:28 05/23/19 24 05/24/2023 UA WITH CULTU RE REFLE X bilirubin Negati ve negati ve Not Available [facility] ([facility]) [address] [facility], [place], [address], 05/26/2023 03:18:28 05/23/19 24 05/24/2023 UA WITH CULTU RE REFLE X urobilinogen ,semi-qn 0.2 mg/dL 0.2-1. 0 Not Available [facility] ([facility]) [address] [facility], [place], [address], 05/26/2023 03:18:28 05/23/19 24 05/24/2023 UA WITH CULTU RE REFLE X nitrite, urine Negati ve negati ve Not Available [facility] ([facility]) [address] [facility], [place], [address], 05/26/2023 03:18:28 05/23/19 24 05/24/2023 UA WITH CULTU RE REFLE X microscopic examination See below: Micro scopi c was indic ated and was perfo rmed. Not Available [facility] ([facility]) [address] [facility], [place], [address], 05/26/2023 03:18:28 05/23/19 24 05/24/2023 UA WITH CULTU RE REFLE X WBC None seen /hpf 0 - 5 Not Available [facility] ([facility]) [address] [facility], [place], [address], 05/26/2023 03:18:28 05/23/19 24 05/24/2023 UA WITH CULTU RE REFLE X RBC None seen /hpf 0 - 2 Not Available [facility] ([facility]) [address] [facility], [place], [address], 05/26/2023 03:18:28 05/23/19 24 05/24/2023 UA WITH CULTU RE REFLE X epithelial cells (non renal) None seen /hpf 0 - 10 Not Available [facility] ([facility]) [address] [facility], [place], [address], 05/26/2023 03:18:28 05/23/19 24 05/24/2023 UA WITH CULTU RE REFLE X epithelial cells (renal) [employer]TE[employer]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 Not Available [facility] ([facility]) [address] [facility], [place], [address], 05/26/2023 03:18:28 05/23/19 24 05/24/2023 UA WITH CULTU RE REFLE X casts None seen /lpf none seen Not Available [facility] ([facility]) [address], [place], [address], 05/26/2023 03:18:28 05/23/19 24 05/24/2023 UA WITH CULTU RE REFLE X cast type [employer]TE[employer]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 Not Available [facility] ([facility]) [address], [place], [address], 05/26/2023 03:18:28 05/23/19 24 05/24/2023 UA WITH CULTU RE REFLE X crystals [employer]TE[employer]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 Not Available [facility] ([facility]) [address], [place], [address], 05/26/2023 03:18:28 05/23/19 24 05/24/2023 UA WITH CULTU RE REFLE X crystal type INTE[employer]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 Not Available [facility] ([facility]) [address], [place], [address], 05/26/2023 03:18:28 05/23/19 24 05/24/2023 UA WITH CULTU RE REFLE X mucus threads [employer]TE[employer]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 Not Available [facility] ([facility]) [address], [place], [address], 05/26/2023 03:18:28 05/23/19 24 05/24/2023 UA WITH CULTU RE REFLE X bacteria None seen none seen/f ew Not Available [facility] ([facility]) [address], [place], [address], 05/26/2023 03:18:28 05/23/19 24 05/24/2023 UA WITH CULTU RE REFLE X yeast [employer]TE[employer]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 Not Available [facility] ([facility]) [address], [place], [address], 05/26/2023 03:18:28 05/23/19 24 05/24/2023 UA WITH CULTU RE REFLE X trichomonas [employer]TE[employer]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 Not Available [facility] ([facility]) [address], [place], [address], 05/26/2023 03:18:28 05/23/19 24 05/24/2023 UA WITH CULTU RE REFLE X comment [employer]TE[employer] CIRCUIT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 Not Available [facility] ([facility]) [address], [place], [address], 05/26/2023 03:18:28 05/23/19 24 05/24/2023 UA WITH CULTU RE REFLE X urinalysis reflex Commen t This speci men will not refle x to a Urine Cultu re. Not Available [facility] ([facility]) [address] [facility] [place], [address], 05/26/2023 03:18:28 05/23/19 24 05/24/2023 LIPID PANEL cholesterol, total 187 mg/dL 100-19 9 Not Available [facility] ([facility]) [address] [facility] [place], [address], 05/26/2023 03:18:28 05/23/19 24 05/24/2023 LIPID PANEL triglyceride s 129 mg/dL 0-149 Not Available [facility] ([facility]) [address] [facility] [place], [address], 05/26/2023 03:18:28 05/23/19 24 05/24/2023 LIPID PANEL HDL cholesterol 58 mg/dL >39 Not Available [facility] ([facility]) [address] [facility] [place], [address], 05/26/2023 03:18:28 05/23/19 24 05/24/2023 LIPID PANEL VLDL cholesterol dustin 23 mg/dL 5-40 Not Available [facility] ([facility]) [address] [facility], [place], [address], 05/26/2023 03:18:28 05/23/19 24 05/24/2023 LIPID PANEL LDL chol calc ([facility]) 106 mg/dL 0-99 above high normal Not Available [facility] ([facility]) [address] [facility], [place], [address], 05/26/2023 03:18:28 05/23/1905/24/2023 LIPID PANEL comment: INTEGRATED CIRCUIT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 Not Available [facility] ([facility]) [address] [facility], [place], [address], 05/26/2023 03:18:28 05/23/19 24 05/24/2023 VITAM IN B12 AND FOLAT E vitamin B12 505 pg/mL 232-12 45 Not Available [facility] ([facility]) [address] [place], [address], 05/26/2023 03:18:29 05/23/1905/24/2023 VITAM IN B12 AND FOLAT E folate (folic acid), serum 13.5 NG/mL >3.0 A serum folat e zackery ntrat ion of less than 3.1 ng/mL is consi dered to repre sent clini dustin defic iency . Not Available [facility] ([facility]) [address] [facility], [place], [address], 05/26/2023 03:18:29 05/23/1905/24/2023 HEMOG LOBIN A1C hemoglobin A1C 6.2 % 4.8-5. 6 above high normal Predi abete s: 5.7 - 6.4 Diabe camden: >6.4 Glyce reginald contr ol for adult s with diabe camden: <7.0 Not Available [facility] ([facility]) [address] [facility], [place], [address], 05/26/2023 03:18:29 05/23/1905/24/2023 PROST ATE-S PECIF IC AG prostate specific Ag 2.4 NG/mL 0.0-4. 0 Pratima ECLIA metho dolog y. Accor ding to the Ameri can Urolo gical Assoc iatio n, Serum PSA shoul d decre ase and remai n at undet ectab le level s after radic al prost atect marlo. The AUA defin es bioch emica l recur rence as an initi al PSA value 0.2 ng/mL or great er follo wed by a subse quent confi rmato ry PSA value 0.2 ng/mL or great er. Value s obtai kaylee with diffe rent assay metho ds or kits canno t be used inter barnes eably . Resul ts canno t be inter prete d as absol che[place]is evide nce of the prese nce or absen [facility]. Not Available [facility] ([facility]) [address] [facility], [place], [address], 05/26/2023 03:18:30 05/23/19 24 05/24/2023 TSH REFLE X TO T4F TSH 2.200 uIU/m L 0.450- 4.500 Not Available [facility] ([facility]) [address] [facility], [place], [address], 05/26/2023 03:18:30 06/20/19 23 06/20/2022 XR, chest , 2 view HISTOR Y: Cough COMPAR AVERY: 015 FINDIN GS: PA and latera l views. Normal cardio medias tinal silhou ette. Aortic arch vascul ar calcif icatio ns. No consol idatio n, effusi on or pneumo thorax . Osseou s struct ures are intact . IMPRES IRIS: No acute cardio pulmon alexx proces s. For servic es render ed at: [facility] Interp reted By: INÉS Grady MD Signat ure Date: 2022 17:05: 10 Perfor med at [facility] [place] [phone] and interp reted by INÉS Grady MD INTERFACE [employer] [facility], [place], [address], 06/20/2022 20:48:41 06/20/19 23 06/20/2022 XR, chest , 2 view No observ ation record ed. [email or web address] [facility] [address] [place], [address], 06/27/2022 18:08:19 08/28/19 23 08/21/2022 XR, cervi dustin spine INDICA TION: Cervic algia. Neck pain for years. New tingli ng right side for 10 days. No injury : Cervic algia TECHNI QUE: 4 views of the cervic al spine COMPAR AVERY: None. FINDIN GS: Straig htenin g of the cervic al lordos is. 2 mm anteri or sublux ation of C3 on C4. The verteb ral body height s are mainta ined. Multil evel loss of interv ertebr al disc height is seen with endpla te irregu larity and osteop hytosi s, compat ible with degene rative disc diseas e. This is most severe at C5-6. Osseou s struct ures are normal ly minera lized. No prever tebral soft tissue swelli ng is seen. The latera l masses of C1 are nondis placed . No dens fractu re. No radioo paque foreig n body is seen. IMPRES IRIS: 1. Mild to modera te multil evel degene rative change s, most severe C5-6. 2. Straig htenin g of the cervic al lordos is with 2 mm anteri or sublux ation of C3 on C4, which could be degene rative or relate d to spasm or strain . 3. No acute osseou s abnorm ality. For servic es render ed at: [facility] Interp reted By: KAIA HENSLEY MD Signat ure Date: 2022 13:07: 57 Perfor med at [facility] [place] [phone] and interp reted by KAIA HENSLEY MD INTERFACE [employer] [address] [place], [address], 08/27/2022 17:26:55 08/28/19 23 08/21/2022 XR, cervi dustin spine No observ ation record ed. [facility] [address], [place], [address], 09/04/2022 20:42:08 08/30/19 23 08/21/2022 XR, cervi dustin spine , 4 or 5 view No observ ation record ed. [email or web address] [facility] [address], [place], [address], 08/29/2022 16:39:29 11/18/19 23 11/13/2022 XR, hand, 3 or more view HISTOR Y: Worsen ing poppin g and stiffn ess for one year. No injury : Pain in left finger (s) COMPAR AVERY: None FINDIN GS: 3 views of left hand were obtain ed. No acute fractu res or disloc ation is eviden t. No joint erosio ns or periar ticula r calcif icatio ns are eviden t. No soft tissue abnorm alitie s are eviden t. IMPRES IRIS: 1. No acute osseou s or joint abnorm alitie s. For servic es render ed at: [employer] [facility] Interp reted By: SANDIE WHITE MD Signat ure Date: 2022 14:50: 56 [facility] med [facility] [place] [phone] and interp reted by SANDIE WHITE MD INTERFACE [employer] [address] [facility], [place], [address], 11/17/2022 18:29:27 11/18/19 23 11/13/2022 XR, hand, 3 or more view No observ ation record ed. [email or web address] [employer] [address], [place], [address], 11/18/2022 11:00:03 Result Notes None recorded. Problems Name Problem SNOMED Code Status Onset Date Resolution Date Notes Provider Name and Address Organization Details Recorded Time Chronic atrial fibrilla tion 118785196 Active 2023 Vanessa Baumann [facility] [place] - [employer] 01/09/202 4 11:39:05 Polyp of colon 03933070 Active 2023 Adenoma Arleth Burrell MD [address], [place], [address] , [place] - [facility] 4 04:08:31 Carcinom a of prostate 301719316 Completed 201803/20/2021 diagnose d 2010, recurren ce 2016; XRT and brachyth erapy Ina Elbaaustyn null, [place] - [facility] 2 11:14:28 Essentia l hyperten iris 10135311 Active 2019 Vanessa Rao null, [place] - [facility] 4 11:38:54 Mixed hyperlip idemia 168986459 Active 2019 Not Available [facility] 08:21:19 Impaired fasting glycemia 045249089 Active 2019 Vanessacollette carrera, [place] - [facility] 4 11:46:49 History of malignan t neoplasm of prostate 765351679 Active 2020 diagnose d 2010, recurren ce 2016; XRT and brachyth erapy. Followed with Dr. Jhonatan Godoy (as Dr. Esa Brennan retired) , radiatio n oncology . apparent ly slowly rising PSA Vanessa Pastor carrera, [place] - [facility] 4 11:38:56 Rupture of tendon of biceps, long head 16531141 Active 2020 Mundo Thayer, [place] - [facility] 2 11:04:56 Carcinom a of prostate 700722626 Completed 201806/15/2021 Ina carrera, [place] - [facility] 2 11:14:28 Neck pain 19805440 Active [address], [place], [address] , [place] - [facility] 3 18:02:23 Obesity 410219701 Active [address], [place], [address] , [place] - [facility] 18:02:38 Problem Notes None recorded. Procedures Surgical History Date Name Laterality Status Provider Name and Address Organization Details Recorded Time 11/15/19 23 TW Trigger finger injection completed Anh Erickson MD [address], [place], [address], [place] - [facility] 11/14/2022 13:21:04 08/22/19 23 .Screening-Depre ssion-Negative completed Revert MD - [facility] 08/21/2022 17:04:17 08/22/19 23 .Screening-TOB/S moking-Negative completed Revert MD - [facility] 08/21/2022 17:04:21 06/17/19 23 Medication Update & Review completed [employer] MD - [facility] 06/17/2022 09:54:04 06/17/19 23 Advanced Directives / Advanced Care Planning completed [employer] MD - [facility] 06/17/2022 09:54:04 06/17/19 23 ADLs/AIDLs completed [employer] MD - [facility] 06/17/2022 09:54:04 06/15/19 22 Medicare Preventative Screening Schedule completed Ina [employer] MD - [facility] 06/15/2021 11:29:23 06/15/19 22 [employer] Wellness Discussion List completed [facility] 06/11/2021 10:21:57 06/05/19 19 Medicare Preventative Screening Schedule completed Sandra Oswald NP [address], [place], [address], [place] - [facility] 06/05/2018 13:18:22 06/05/19 19 [employer] Wellness Discussion List completed Sandra Oswald NP [address], [place], [address], [place] - [facility] 06/05/2018 10:35:55 Imaging Results Imaging Date Name Status LastModified by [facility] Details LastModified Time 06/20/2022 XR, chest, 2 view completed INTERFACE [facility] [place] [address], [place], [address], 06/20/2022 20:48:41 06/20/2022 XR, chest, 2 view completed [facility] [place] [address] [address], [place], [address], 06/27/2022 18:08:19 08/21/2022 XR, cervical spine completed INTERFACE [facility] [place], [place], [address], 08/27/2022 17:26:55 08/21/2022 XR, cervical spine completed [email or web address] [facility] [place] [address], [place], [address], 09/04/2022 20:42:08 08/21/2022 XR, cervical spine, 4 or 5 view completed [email or web address], [place], [address], 08/29/2022 16:39:29 11/13/2022 XR, hand, 3 or more view completed [facility] [place] [address], [place], [address], 11/17/2022 18:29:27 11/13/2022 XR, hand, 3 or more view completed [email or web address] [facility] [place] [address], [place], [address], 11/18/2022 11:00:03 Procedure Notes None recorded. Medical Equipment None Reported. Allergies No known drug allergies Medications Name Sig Start Date Stop Date Status Note LastModified by Organization Details LastModified Time amoxicillin 500 mg capsule 08/21 completed Not Available Not Available Not Available atorvastati n 40 mg tablet TAKE ONE TABLET BY MOUTH EVERY NIGHT AT BEDTIME 2023 active Not Available Not Available Not Avai lable amiodarone 200 mg tablet active Not Available Not Available Not Available Medrol (Moncho) 4 mg tablets in a dose pack Take as directed 2022 active Not Available Not Available Not Avai lable methylpredn isolone 4 mg tablet active Not Available Not Available No t Available amlodipine 5 mg-benazepr il 20 mg capsule Take 1 capsule every day by oral route. 2023 active Not Available Not Available Not Avai lable hydrocodone 7.5 mg-acetamin ophen 325 mg tablet 08/21 completed Not Available Not Available Not Available triamterene 37.5 mg-hydrochl orothiazide 25 mg tablet Take 3 tablets every week by oral route. 2023 active Not Available Not Available Not Avai lable hydrocortis one 2.5 % topical cream active Not Available Not Available Not Available albuterol sulfate HFA 90 mcg/actuati on aerosol inhaler Inhale 2 puffs every 4 hours by inhalatio n route as needed. 2020 active Not Available Not Available Not Avai lable atenolol 50 mg tablet TAKE ONE TABLET BY MOUTH DAILY 2023 active Not Available Not Available Not Avai lable Vitamin D3 take 1 tablet daily active Not Available Not Available No t Available oregano oil 1,500 mg capsule Take 1 capsule every day by oral route. active Not Available Not Available No t Available krill oil take 1 tab daily active Not Available Not Available No t Available Xarelto 20 mg tablet active Not Available Not Available No t Available Shingrix (PF) 50 mcg/0.5 mL intramuscul ar suspension, kit 08/21 completed Not Available Not Available Not Available Vitals Date Recorded Body height Body mass index (BMI) Body weight Oxygen saturation Oxygen saturation in Arterial blood by Pulse oximetry Heart rate Body temperature Systolic blood pressure Diastolic blood pressure Provider Name and Address Organization Details Last Updated DateTime 3 170.18 cm 36.8 kg/m2 457157. 21 g 97 % 97 % 62 /min 96.8 [degF] 132 mm[Hg] 78 mm[Hg] Mundo Slater MD - [employer] [facility], [facility] 3 10:07:27 Date Recorded Body height Body mass index (BMI) Body weight Oxygen saturation Oxygen saturation in Arterial blood by Pulse oximetry Heart rate Body temperature Systolic blood pressure Diastolic blood pressure Provider Name and Address Organization Details Last Updated DateTime 3 170.18 cm 37.1 kg/m2 715236. 39 g 95 % 95 % 98 /min 97.3 [degF] 154 mm[Hg] 80 mm[Hg] Sindhu Fonseca MD - [facility] 3 17:44:07 Date Recorded Systolic blood pressure Diastolic blood pressure Systolic blood pressure Diastolic blood pressure Provider Name and Address Organization Details Last Updated DateTime 08/21/2022 130 mm[Hg] 80 mm[Hg] 130 mm[Hg] 80 mm[Hg] Sanjeev Purcell, [employer]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 [address], [place], [address] , [place] - [facility] 3 18:13:12 Date Recorded Body height Body mass index (BMI) Body weight Provider Name and Address Organization Details Last Updated DateTime 11/14/2022 170.18 cm 36.8 kg/m2 510636.93 g Miri Arenas MD - [facility] 11/14/2022 13:00:42 Date Recorded Body height Body mass index (BMI) Body weight Heart rate Oxygen saturation Oxygen saturation in Arterial blood by Pulse oximetry Body temperature Systolic blood pressure Diastolic blood pressure Provider Name and Address Organization Details Last Updated DateTime 4 170.18 cm 36.5 kg/m2 709009. 02 g 78 /min 95 % 95 % 95.9 [degF] 128 mm[Hg] 84 mm[Hg] [place]undo [place] - [facility] 4 11:26:10 Date Recorded Body height Body mass index (BMI) Body weight Oxygen saturation Oxygen saturation in Arterial blood by Pulse oximetry Heart rate Body temperature Systolic blood pressure Diastolic blood pressure Provider Name and Address Organization Details Last Updated DateTime 2 170.18 cm 36.6 kg/m2 727976. 61 g 96 % 96 % 82 /min 96.5 [degF] 128 mm[Hg] 66 mm[Hg] Mundo Luke[place]he[place] - [facility] 2 11:04:28 Date Recorded Systolic blood pressure Diastolic blood pressure Provider Name and Address Organization Details Last Updated DateTime 06/15/2021 130 mm[Hg] 86 mm[Hg] Ina Garcia MD - [facility] 06/15/2021 11:32:13 Social History Question Answer Notes LastModified by Organizat ion Details LastModified Time Tobacco Smoking Status Former Smoker Quit 1998 NEAL Beatty - [facility], [facility] 06/15/2021 11:09:12 What Is Your Level Of Alcohol Consumption? Occasional [email or web address] Information not available 01/16/2018 Are You Blind Or Do You Have Difficulty Seeing? No [email or web address] Information not available 06/17/2022 What Is Your Level Of Caffeine Consumption? None Information not available 06/05/2018 Are You Deaf Or Do You Have Serious Difficulty Hearing? No [email or web address] Information not available 06/17/2022 Are There Any Guns Present In Your Home? No Information not available 06/05/2018 Location Of Problem Left Shoulder Information not available 04/17/2021 How Did Your Problem Begin? Yard Work Information not available 04/17/2021 How Long Have You Had Your Problem? 45 Days Information not available 04/17/2021 Please Rate Your Pain On A Scale Of 0 To 10 (10 = Most Painful) 1 Information not available 04/17/2021 Are You: Improving Information no t available 04/17/2021 Have You Seen Another Healthcare Provider For This Problem? Yes Information not available 04/17/2021 If You've Seen Another Provider, Who? Ashanti Information not available 04/17/2021 Are You On Any Blood Thinners? No Information not available 04/17/2021 Are You In Pain Management? No Information not available 04/17/2021 What Was The Date Of Your Most Recent Tobacco Screening? 08/21/2022 [email or web address] Information not available 08/21/2022 Are There Any Smokers In Your House? No Information not available 06/05/2018 How Many Years Have You Smoked Tobacco? 20 Information not available 06/05/2018 Sex: Unknown Functional Status Question Answer Note LastModified by Organizat ion Details LastModified Time Do you have difficulty walking or climbing stairs? No [email or web address] Information not available 06/17/2022 Do you have transportation difficulties? No [email or web address] Information not available 06/17/2022 Are you able to walk? YESWOREST [email or web address] Information not available 06/17/2022 Do you have difficulty doing errands alone? No [email or web address] Information not available 06/17/2022 Are you able to care for yourself? Yes Information not available 06/05/2018 Do you have difficulty dressing or bathing? No [email or web address] Information not available 06/17/2022 Mental Status Question Answer Note LastModified by Organization D etails LastModified Time Do you have difficulty concentrating, remembering or making decisions? No [email or web address] Information no t available 06/17/2022 Family History Relationship Description Onset Age of this Age Resolved Age Notes LastModified by Organization Details LastModified Time Father Family history of malignant neoplasm of prostate [email or web address] Not available 10/2017 10:32:25 Paternal Grandfather Family history of malignant neoplasm of prostate [email or web address] Not available 10/2017 10:32:25 Mother Diabetes mellitus Not available 2020 17:01:36 Father Heart disease Not available 2020 17:02:01 Medical History Condition Response High Blood Pressure Y Cancer Immunizations Vaccine Type Date Status Note Provider Nam e and Address Organization Details Recorded Time pneumococcal polysaccharide PPV23 6 completed Sindhu carrera MD - [employer] [employer] [facility] 08/21/2022 17:20:29 Pneumococcal conjugate PCV 13 7 completed Mundo Thayer, [place] - [facility] 05/20/2023 11:21:01 zoster live 1 completed Sindhu carrera MD - [facility] 08/21/2022 17:20:29 COVID-19, mRNA, LNP-S, PF, 30 mcg/0.3 mL dose 2 completed Sindhu carrera MD - [facility] [employer] [facility] 08/21/2022 17:20:29 SARS-COV-2 (COVID-19) vaccine, UNSPECIFIED 2 chun carrera [facility] [employer] [facility] 08/21/2022 17:20:29 zoster recombinant 0 completed Sindhu Fonseca null, [place] - [facility] 08/21/2022 17:20:29 zoster recombinant 0 completed Sindhu Fonseca deandre, [place] - [facility] 08/21/2022 17:20:29 Influenza, high-dose, quadrivalent, PF 2 completed Sindhu Fonseca null, [facility] 08/21/2022 17:20:29 Influenza, high-dose, quadrivalent, PF 0 completed Sindhu Fonseca deandre, [place] - [facility] 08/21/2022 17:20:29 COVID-19, mRNA, LNP-S, PF, 30 mcg/0.3 mL dose, kiko-sucrose 2 completed Sindhu Fonseca deandre, [place] - [facility] 08/21/2022 17:20:29 COVID-19, mRNA, LNP-S, bivalent, PF, 30 mcg/0.3 mL dose 2 completed Sindhu Fonseca deandre, [place] - [facility] 08/21/2022 17:20:29 pneumococcal polysaccharide PPV23 9 completed Sindhu carrera, [place] - [facility] 08/21/2022 17:20:29 pneumococcal polysaccharide PPV23 9 completed Sindhu Fonseca deandre, [place] - [facility] 08/21/2022 17:20:29 Pneumococcal conjugate PCV 13 7 completed Sindhu carrera, [place] - [facility] 08/21/2022 17:20:29 Influenza, high-dose, trivalent, PF 6 completed Sindhu carrera, [place] - [facility] 08/21/2022 17:20:29 Influenza, high-dose, trivalent, PF 9 completed Sindhu Fonseca null, [place] - [facility] 08/21/2022 17:20:29 Influenza, split virus, trivalent, preservative 9 completed Sindhu Fonseca null, [place] - [facility] 08/21/2022 17:20:29 Influenza, split virus, trivalent, PF 4 completed Sindhu Fonseca deandre, [facility] 08/21/2022 17:20:29 Influenza, high-dose, trivalent, PF 8 completed Sindhu Fonseca [facility], [facility] 08/21/2022 17:20:29 Influenza, high-dose, quadrivalent, PF 3 completed [facility] 05/20/2023 11:21:01 RSV, bivalent, protein subunit RSVpreF, diluent reconstituted, 0.5 mL, PF 3 completed Mundo [facility] 05/20/2023 11:21:01 COVID-19, mRNA, LNP-S, PF, kiko-sucrose, 30 mcg/0.3 mL 3 completed [facility] 05/20/2023 11:21:01 COVID-19, mRNA, LNP-S, PF, 30 mcg/0.3 mL dose 1 completed Sindhu Fonseca [facility], [facility] 08/21/2022 17:20:29 COVID-19, mRNA, LNP-S, PF, 30 mcg/0.3 mL dose 1 completed Sindhu Fonseca [facility], [facility] 08/21/2022 17:20:29 COVID-19, mRNA, LNP-S, PF, 30 mcg/0.3 mL dose 1 completed Sindhu crarera, [facility] 08/21/2022 17:20:29 Influenza, high-dose, quadrivalent, PF 1 completed Sindhu Fonseca [facility], [facility] 08/21/2022 17:20:29 zoster recombinant 0 completed Sinhdu Fonseca null, [facility] 08/21/2022 17:20:29 zoster recombinant 0 completed Sindhu Fonseca [facility], [facility] 08/21/2022 17:20:29 Past Encounters Encounter ID Performer Location Encounter Start Date Encounter Closed Date Diagnosis/Indication Diagnosis SNOMED-CT Code Diagnosis ICD10 Code [id number] Sandra Oswald, [employer]TE[employer]ATED [employer]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 [facility] [place] [address] [facility] [address] 06/05/2018 09:55:51 06/05/2018 10:41:22 Adult health examination 172057111 Z00.00 Screening for malignant neoplasm of colon 756810298 Z12.11 Impaired f asting glycemia 783066667 R73.01 Bilirubin level above reference range 26460248 R79.89 Essential hypertension 07198897 I10 Mixed hyperlipidemia 267 470513 E78.2 [id number] Arleth Burrell MD [facility] [place] [address] [facility] [address] 06/10/2019 09:53:57 06/10/2019 14:21:08 Essential hypertension 40870394 I10 Mixed hyperlipidemia 267 673014 E78.2 Carcinoma of prostate 25 4557117 C61 Impaired f asting glycemia 078818923 R73.01 Fatigue 82643857 R53.83 [id number] Arleth Burrell MD [facility] [place] [address] [facility] [place] [address] 06/13/2020 11:03:08 06/14/2020 13:41:31 Essential hypertension 81481155 I10 Mixed hyperlipidemia 267 988902 E78.2 Carcinoma of prostate 25 4918254 C61 Impaired f asting glycemia 842758025 R73.01 Fatigue 51327887 R53.83 Nocturia 084010989 R35.1 [id number] Arleth Burrell MD [facility] [place] [address] [facility] [place] [address] 03/20/2021 15:04:28 03/21/2021 16:24:56 Rupture of tendon of biceps 436853992 M66.829 Pain of le ft shoulder joint 8412811590 3872197 M25.512 History of malignant neoplasm of prostate 752239001 Z85.46 Cough 34815906 R05.9 [id number] Arleth Cartwright MD [facility] [place] [address] [place], [place] [phone] 04/13/2021 10:17:30 04/13/2021 11:34:58 Rupture of tendon of biceps, long head [id number] S46.112A [id number] Arleth Burrell MD [facility] [address] [place] [phone] 7 06/15/2021 10:54:36 06/15/2021 14:28:54 Adult health examination 813227361 Z00.00 Obesity 847386955 E66.9 Body mass index 30+ - obesity 027059986 Z68.36 History of malignant neoplasm of prostate 076224981 Z85.46 Impaired f asting glycemia 046412970 R73.01 Mixed hyperlipidemia 267 855831 E78.2 Fatigue 70890296 R53.83 Screening for malignant neoplasm of colon 820118849 Z12.11 Essential hypertension 52790374 I10 [id number] [facility]th [facility] MD [facility] [address] [place] [phone] 7 06/17/2022 09:50:06 06/19/2022 16:15:29 Adult health examination 342139517 Z00.00 Screening for disorder 515579691 Z13.9 Essential hypertension 13116917 I10 Problem wi continuity of care 040367761 Z74.8 Nocturia 697476930 R35.1 Dyslipidemia 930052324 E 78.5 Fatigue 79283341 R53.83 History of malignant neoplasm of prostate 172047352 Z85.46 Cough 64780118 R05.9 Impaired g lucose tolerance 3564578 R73.02 [id number] Sanjeev Purcell NP [facility] [address] [place] [phone] 08/21/2022 17:02:39 08/22/2022 19:18:18 Depression screening 875923488 Z13.31 Screening for disorder 027464643 Z13.89 Obesity 158657638 E66.09 Body mass index 30+ - obesity 359148022 Z68.37 Neck pain 25731259 M54.2 [id number] Anh Erickson MD [facility] [place] [address] [place] [phone] 11/14/2022 12:44:13 11/14/2022 13:40:52 Trigger finger of left hand 9120755120 9129147 M65.30 [id number] Arleth Burrell MD [facility] [address] [place] [address] 05/20/2023 11:08:45 05/21/2023 17:36:45 Dyslipidemia 644579852 E78.5 Essential hypertension 22818324 I10 Depression screening 171 291453 Z13.31 Obesity 086563405 E66.09 Body mass index 30+ - obesity 918735972 Z68.36 Nocturia 486980635 R35.1 Fatigue 29598437 R53.83 Chronic at rial fibrillation 748630694 I48.20 Impaired f asting glycemia 711843333 R73.01 Health Concerns Section Related Observation LastModified by Organization Detai ls LastModified Time None Recorded Concern Status LastModified by Organization Details LastModified Time None Recorded Advance Directives Directive None Recorded Payers Encounter Date Sequence Insurance Name Policy Number Policy Gregory Covered Member ID Gregory Member ID Guarantor Name 06/15/2021 1 [place] Du Clements [id number] Du Clements 06/15/2021 2 [employer] OPTIONS (MEDICARE SUPPLEMENT) Du Clements [id number] Du Clements 06/17/2022 1 [place] Du Clements [id number] Du Martinezellano 06/17/2022 2 [employer] HE[employer] OPTIONS (MEDICARE SUPPLEMENT) Du Clements [id number] Du Martinezellano 08/21/2022 1 [place] Du Clements [id number] Du Martinezellano 08/21/2022 2 [employer] OPTIONS (MEDICARE SUPPLEMENT) Du Clements [id number] Du Clements 11/14/2022 1 [place] Du Clements [id number] Du Dcno 11/14/2022 2 [facility] HEALTH[facility] OPTIONS (MEDICARE SUPPLEMENT) Du Clements [id number] Du Clements 05/20/2023 1 [place] Du Clements [id number] Du Dcno 05/20/2023 2 [facility] HEALTHCARE OPTIONS (MEDICARE SUPPLEMENT) Du Dcno [id number] Du Clements Notes Date Note Type Note Provider Name and Address Organization Details Recorded Time 2 text/html IncontinenceReported bypatient.Associated Symptoms:no abdominal pain; no back pain; no groin pain; no chills; no constipation; no diarrhea; no dribbling; no dysuria; no emptying; no frequency; no hematuria; no nausea; no nocturia; no odor; no straining stream; no stress incontinence; no temperature; no urgency; no urge incontinence; normal urinary stream; no vomiting; no weight lossMedicare Annual Wellness VisitReported bypatient.Diet and Nutrition:healthy diet Fracture Risk:no history of fractures; no recent explained fracture; no sudden unexplained fractures; no previous musculoskeletal injuries Physical Activity:exercises on a regular basis; recent increase in physical activity; good physical condition; discussed weightbearing activities; discussed exercise habits Depression Risk:never feels sad, empty, or tearful; no loss of interest in activities; no significant changes in weight; no sleep disturbances or insomnia; no agitation; no loss of energy; no feelings of worthlessness or guilt; no thoughts of suicide; no history of depression; no history of mood disorders Orientation:no disorientation to time; no disorientation to date; no disorientation to place Concentration and Memory:no decreased concentrating ability; no memory lapses or loss; does not forget words Speech/Motor difficulties:no speech difficulties; no difficulty expressing formulated concepts; no difficulty with fine manipulative tasks; no difficulty writing/copying; no slowed reaction time; does not knock things over when trying to pick them up Hearing:no loss of hearing Vision:no vision problems Activities of Daily Living:able to bathe with limited or no assistance; able to contol urination and bowels; able to dress with limited or no assistance; able to feed self with limited or no assistance; able to get out of chair or bed with limited or no assistance; able to groom with limited or no assistance; able to toilet with limited or no assistance Instrumental Activities of Daily Living:able to do house work with limited or no assistance; able to grocery shop with limited or no assistance; able to manage medications with limited or no assistance; able to manage money with limited or no assistance; able to prepare meals with limited or no assistance; able to use the phone with limited or no assistance Falls Risk Assessment:no frequent falls while walking; no fall in the past year; no fall since last visit; no dizziness/vertigo Home Safety:no unsafe jimbo hazzards; no unsafe stairs; no unsafe gas appliances; working smoke/CO detectors; wears protective head gear for biking/high velocity; use of seatbelts; practicing 'safer sex'; no vision or hearing loss while driving; no fire arms; has hand bars in the bathroom/shower; good lighting in the homeOpioids (Brief)Reported bypatient.current level of pain (as indicated in vitals)No pain: 0/10 behaviorThe patient has not experienced cravings for opioids over the last 12 month period. Du Clements is a 71 year old male presenting to the clinic today for MWV. The patient reports his PSA is gradually rising, however he is following with Dr. Esa Brennan, radiation oncology for monitoring. He reports he had a PET scan done, which did not show any evidence of malignancy. He notes he will be having his PSA checked every 6 months. The patient has received Flu (02/08/21), Prevnar (05/14/16), Pneumovax (05/16/15), Shingrix (2019), and COVID (06/12/20, 07/06/20, 02/23/21) vaccinations.His last {{colonoscopy* cologuard} } was in 2007 ([address] Dr. Chinchilla) and is due for repeat. He reports he has been waiting for the increase in covid cases to settle before having a procedure done in the hospital. He denies having personal history of polyps or family history of colon cancer. He {{does* does not}} have a baseline EKG (2014) and CXR (2014) on file.The patient follows with a dentist regularly. He is up to date on recommended annual eye exams. He exercises regularly. The patient is a {{current non former*}} smoker and {{admits* denies}} to {{rare occasional* daily} } alcohol use.He {{has has not*}} had routine labs checked recently. 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.Diet and Nutrition:HEALTHY Physical Activity:Physical Activity since last year has .; Physical Activity Status: Hearing:no loss of hearing Vision:no vision problems Activities of Daily Living:able to bathe with limited or no assistance; able to contol urination and bowels; able to dress with limited or no assistance; able to feed self with limited or no assistance; able to get out of chair or bed with limited or no assistance; able to groom with limited or no assistance; able to toilet with limited or no assistance Instrumental Activities of Daily Living:able to do house work with limited or no assistance; able to grocery shop with limited or no assistance; able to manage medications with limited or no assistance; able to manage money with limited or no assistance; able to prepare meals with limited or no assistance; able to use the phone with limited or no assistance Home Safety Recommendations Reviewed:jimbo hazards; using sunscreen; stair safety; use of seatbelts driving; working smoke/CO detectors; support bars/railings in the bathroom/shower; good lighting in the home; fire arms safety* Medicare Pain and Opioid Use AssessmentReported bypatient.Current level of pain (as indicated in vitals):No pain: 0/10 Addiction behavior screening:The patient has not experienced cravings for opioids over the last 12 month period. Du Clements is a 72 year old male who presents to clinic today in regards to a MWE. The patient has received Prevnar (05/14/16), Pneumovax (05/16/15), Shingrix (06/2019, 08/2019), and COVID (06/12/20, 07/06/20, 02/23/21, 07/10/21, 03/2022) vaccinations. His last Cologuard was on 07/09/21 (negative) and is due for repeat in 2024. His last PSA was checked on 07/09/21 and was 1.5. The patient does not have a baseline CXR or EKG on file. He reports that he had an EKG with Dr. Bolaños of Cardiology a couple of years ago. The patient follows with a dentist regularly (every 6 months). He is not up to date on recommended annual eye exams; his last exam was a few years ago. He exercises regularly. The patient is a {{current non former*}} smoker (quit: 1998) and {{admits* denies}} to {{rare occasional* daily} } alcohol use (2-3 drinks weekly). He {{has has not*}} had routine labs checked recently. The patient reports that he is doing well overall. He reports that he had a PSMA PET/CT scan just recently that was negative. He follows with Dr. Jhonatan Godoy of Rad Onc, as Dr. Brennan retired. Patient is her for a Medicare Wellness Evaluation and to review any potential medical concerns, uncontrolled chronic medical conditions, and physical exam as indicated. Patients past medical, surgical, social, and family history reviewed. Arleth Burrell MD [address], [place], [address], [facility] [employer] 06/17/2022 11:04:43 3 text/html Patient is a 72 y/o/mpresents with neck pain reports: neck pain-intermittent.last week and a half, tingling going up his neck has seen chiropractor --it didn't work. tingly sensation in right jaw-radiates to anterior right chest and right shoulder. and to right traps. OTC: ibuprofen, tylenol has numbness and tingling-on right side of neck. reports several years ago had adverse effect to muscle relaxer--does not recall name of medication. 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 Sanjeev Purcell NP [address], [place], [address], [facility] [employer] [facility] 08/22/2022 02:04:23 3 text/html HPI for HAND PAIN:{{RT LT* Bilateral}} Pain location:thumb Pain Level:{{1 2 3* 4 5 6 7 8 9 10}} Radiating:{{YES NO*}} Duration:{{2-4wks 1-2 months* 3-4 months 6 months 9 months 1 year 1-2 years 3+ years}} Timing:{{Constant Episodi c*}} Recent Injury Hx:{{YES NO*}} Swelling :{{YES NO*}} Bruising :{{YES NO*}} Catching/locking :{{YES* NO}} Worse with gripping:{{YES* NO}} Numbess/tingling :{{YES NO*}} History of surgery:{{YES NO*}} History of cortisone shot:{{YES NO*}} Physical Therapy Hx:{{YES NO*}} Currently in Physical Therapy:{{YES NO*}} Currently on prescription medication(s):{{NO* YES _ }} ON OTC medication(s):{{YES* NO T ried and Failed}} ON TOPICAL medication(s):{{YES NO* T ried and Failed}} Tried Activity Modification:{{YES* NO}} other: Anh Erickson MD [address], [place], [address], [facility] [employer] 11/14/2022 13:22:23 4 text/html Du Clements is a 73 year old male who presents to the clinic for a medication refill. The patient's last MWV was on 06/17/22. Today, the patient states that he has been doing well overall and has no acute complaints to report today. Supposedly chronic Afib per Dr. Bolaños. He denies respiratory complications. He is having a cardioversion in the next week at [facility]. Arleth Burrell MD [address], [place], [address], [facility] [employer] 05/20/2023 12:05:38
--- OUTSIDE RECORDS SUMMARY | 2024-05-11 16:02 | XMS_ITS | Encounter Summary ---
Author Organization [facility] Address [address] [place] [address] Care Team Providers Care Surgical Device Sales Representative Name Role Phone Lanre Burrell MD Primary Care Provider Reason for Visit * Auth/Cert Specialty Diagnoses / Procedures Referred By Mary monge Referred To Contact Diagnoses Malignant neoplasm of prostate Malignant neoplasm of prostate [C61] Procedures CHG INTERSTI RADIOELEM APPL COMPLX GA PERCUT/NEEDLE INSERT,PROSTATE,RADIOISOT CHG ECHO,TRANSRECTAL,PROSTATE VOL CHG SONO GUIDE RADIOELEMT APPLIC CHG RADIOELEMENT HANDLING RADIOACTIVE SEED IMPLANTATION, PROSTATE Referral ID Status Reason Start Date Expiration Date Visits Re quested Visits Authorized [id number] 1 1 Encounter Details Date Type Department Care Team (Late st Contact Info) Description 09/24/2016 8:00 AM [facility] - 09/24/2016 10:00 AM [facility] Surgery [facility] Inpatient Surgery [address] [place] [address] Junior Ahumada MD [address] [facility] [address] [place], [place] [id number] RADIOACTIVE SEED IMPLANTATION, PROSTATE ULTRASOUND Surgery Details Date/Time Status Location OR Service Patient Class Case Class Case Type Trauma Case? 09/24/2016 8:00 AM Posted [facility] IP SURGERY [place] IP OR 03 Radiation Oncology Outpatient Elective No Panel 1 Procedure LRB Anes Op Region Wound Class Comments RADIOACTIVE SEED IMPLANTATIO N, PROSTATE ULTRASOUND N/A General Clean Contaminated Surgeon Surgeon Role Service Panel Junior Ahumada MD Primary Radiation Oncology 1 Case Notes SAVED LJ FSAC 09 02 16 Saved preops. gg 09/03 Saved preops. gg 09/17 Special Needs STEPPER, UROLOGY TABLE, ULTRASOUND MACHINE AND TECH, IMPLANTS: [employer] NOTIFIED RADIOLOGY FOR U/S documented in this encounter Social History Tobacco Use Types Packs/Day Years [...] Comments Blood Pressure 141/81 09/24/2016 10:15 AM [facility] Pulse 54 09/24/2016 10:15 AM [facility] Temperature 36.3 ??C (97.4 ??F) 09/24/2016 10:00 AM [facility] Respiratory Rate 16 09/24/2016 10:15 AM [facility] Oxygen Saturation 96% 09/24/2016 10:15 AM [facility] Inhaled Oxygen Concentration - - Weight 101.2 kg (223 lb) 09/24/2016 6:40 AM [facility] Height 170.2 cm (5' 7 ) 09/24/2016 6:40 AM [facility] Body Mass Index 34.93 09/24/2016 6:40 AM [facility] documented in this encounter Discharge Instructions * Discharge Instructions* Melissa Thomas RN - 09/24/2016 10:05 AM [facility] General Home Care Instructions Activity: You have [...] adenocarcinoma of the prostate. ANESTHESIA: General by Dr. ____ RADIATION ONCOLOGIST: Junior Ahumada MD. PROCEDURE PERFORMED: Transrectal ultrasound-guided transperineal interstitial implant of the prostate with I-125 sources. INDICATION FOR PROCEDURE: The patient with recurrent adenocarcinoma of the prostate. It was previously irradiated in 2009 and now has documented recurrence. After negative staging workup, [...] AHUMADA MD Dictated by: JUNIOR AHUMADA MD -[facility] Dictation ID: [id number] Confirmation / * Brief Op Note - Junior Ahumada [...] transfusion Complications: None Specimen(s) removed: Specimens None Grafts/Implants/Pump Station Operator(s): 70 I-125 seeds placed Drains: Findings: Same as Post-op Diagnosis Debridement: No Debridement Closing: N/A Date: 09/24/2016 Time: 9:29 AM Physician Junior Ahumada Per Medical Staff Rules and Regs: This brief post procedure progress note must be documented immediately following surgery and before the patient is transferred to the next level of care (e.g. beforethe patient leaves the post anesthesia care area) [facility] documented in this encounter Plan of Treatment Not on file documented as of this encounter Procedures Procedure Name Priority Date/Time Associated Diagnosis Comments RADIOACTIVE SEED IMPLANTATION, PROSTATE 09/24/2016 8:07 AM [facility] Malignant neoplasm of prostate Case Notes SAVED LJ FSAC 4 24 17 Saved preops. gg 09/03 Saved preops. gg 5 Special Needs STEPPER, UROLOGY TABLE, ULTRASOUND MACHINE AND TECH, IMPLANTS: [employer] NOTIFIED RADIOLOGY FOR U/S POCT GLUCOSE Routine 09/24/2016 7:15 AM [facility] PHYSICIAN ORDERS 09/24/2016 12:0 0 AM [facility] documented in this encounter Results * POCT Glucose (09/24/2016 7:15 AM [facility]) POC Glucose 96 65 - 99 mg/dL 09/24/2016 7:34 AM [facility] Blood BLOOD SPECIMEN / Unknown 09/24/2016 7:15 AM MST 09/24/2016 7:34 AM MST Narrative [facility] - 09/24/2016 7:34 AM [facility] Test Performed at: [facility] [address] [place] [address] Tamiko Bynum MD Junior Ahumada MD POCT ORDERABLES - D EVICE [facility] [address] [place] [address], [facility] [phone] * PHYSICIAN ORDERS (09/24/2016 12:00 AM [facility]) Default Authenticator Pierce SCANNING documented in this encounter Visit Diagnoses Diagnosis Malignant neoplasm of prostate- Primary Malignant neoplasm of prostate Malignant neoplasm of prostate documented in this [...] Bag 09/24/2016 7:15 AM MST 30 mL/hr lidocaine jelly (XYLOCAINE) 2 % As needed, Starting on Fri09/24/16 at 0820, Intra-Op, Routine Given 09/24/2016 8:20 AM MST 5 mLs Surgical Site sterile water - IR irrigation As needed, Starting on Fri09/24/16 at 0735, Intra-Op, Routine Given 09/24/2016 7:35 AM MST 1,000 mLs documented in this encounter Active and Recently Administered Medications Times are shown in MST. Scheduled Medication Order 09/22/2016 09/23/2016 09/24/2016 cefTRIAXone (ROCEPHIN) 1 g IV push (COMPLETED) 1 g, Intravenous, admissions advisor to OR, First dose on Fri09/24/16 at 0730, For 1 dose, Dilute each 1 g vial with NS flush 10 mL to a final concentration of 100 mg/mL., Pre-Op, Routine 0816 (New Bag - Prov ider: Betty Wesley MD) lactated ringers infusion (COMPLETED) at 30 mL/hr, Intravenous, Once, On 09/24/16 at 0730, For 1 dose, Pre-Op, Routine 0715 (New Bag - Prov ider: Daria Keenan RN)0916 (Anesthesia Volume Adjustment - Provider: Betty Wesley MD)1012 (Stopped - Provider: Melissa Thomas RN) Continuous Medication Order 09/22/2016 09/23/2016 09/24/2016 lactated ringers infusion (CANCELED) at 100 mL/hr, Intravenous, Continuous, Starting on Fri09/24/16 at 0945, PACU, Routine 1000 (New Bag - Prov ider: Melissa Thomas RN)1040 (Stopped - Provider: Simin Peter RN) PRN Medication Order 09/22/2016 09/23/2016 09/24/2016 lidocaine jelly (XYLOCAINE) 2 % (CANCELED) As needed, Starting on e 09/24/16 at 0820, Intra-Op, Routine 0820 (Given - Provid er: Bryn Garsia RN - Comment: 5 ML UROJET WITH 3 ML H2O MIXTURE VIA PROSTATE) sterile water - IR irrigation (CANCELED) As needed, Starting on e 09/24/16 at 0735, Intra-Op, Routine 0735 (Given - Provid er: Junior Ahumada MD) documented in this encounter Care Teams Surgical Device Sales Representative Relationship Specialty Start Date End Date Lanre Burrell MD PCP - General Internal Medicine 09/24/16 documented as of this encounter
--- OUTSIDE RECORDS SUMMARY | 2024-05-11 16:02 | XMS_ITS | Clinical Summary ---
Author Organization [id number] Address Unknown Care Team Providers Care Aeronautical Design Engineer Name Role Phone Unavailable Primary Care Physician [...] Role Encounter Diagnoses Location Date Ambulatory Encounter [id number] Sonido Wan [address] 8 12:05 pm PST Ambulatory Encounter [id number] Sonido Wan [address] 9 11:23 am PST Ambulatory Encounter [id number] Sonido Wan [id number] - Francia Omalley [facility] [place] 4 01:54 pm PDT First Visit [id number] Javier Hinkle Change in bowel habits Rectal bleeding [address] 4 09:00 am PDT Colonoscopy [id number] Trujillo Diverticulosis of large intestine without perforation or abs Evaluation of unexplained GI bleeding Other specified diseases of intestine Polyp of colon [facility] 08:00 am PDT Advance Directives [...] 96 % 10/10/2023 08: 32 am PDT CQUG9Ftelx mmHg 10/10/2023 08:32 am PDT Height 67 in 10/10/2023 06:44 am PDT Weight 252 lbs 10/10/2023 06:44 am PDT BMI (Body Mass Index) kg/m2 10/10/2023 06:44 am PDT BP Systolic 161 mm[hg] 10/10/2023 08:32 am PDT BP Diastolic 72 mm[hg] 10/10/2023 08:32 am PDT Insurances Policy / Member / Group Numbers Plan Details Company Policy Gregory [id number] / / Plan Type:MCR Coverage Type:Primary Medicare [place] [address] Du Clements [id number] / / Plan Type:MCRSUP Coverage Type:Secondary [facility] Medicare Supplement [id number] Du Clements
--- OUTSIDE RECORDS SUMMARY | 2024-05-11 16:02 | XMS_ITS | Encounter Summary ---
Author Organization [facility] Address [address] [place] [address] Care Team Providers Care Gear Room Keeper Name Role Phone Lanre Burrell MD Primary Care Provider [phone] Reason for Referral * Ultrasound (Routine) - Closed Specialty Diagnoses / Procedures Referred By Mary monge Referred To Contact Diagnoses Malignant neoplasm of prostate Procedures US Guided Intraoperative Study CHG ULTRASONIC GUIDANCE, [place] [address] [place] [address] [address] [place] [address] Referral ID Status Reason Start Date Expiration Date Visits Re quested Visits Authorized [id number] Closed 09/02/2016 03/01/2017 1 1 [facility] Reason for Visit * Auth/Cert Specialty Diagnoses / Procedures Referred By Mary monge Referred To Contact Diagnoses Malignant neoplasm of prostate Malignant neoplasm of prostate [C61] Procedures CHG INTERSTI RADIOELEM APPL COMPLX [place] PERCUT/NEEDLE INSERT,PROSTATE,RADIOISOT CHG ECHO,TRANSRECTAL,PROSTATE VOL CHG SONO GUIDE RADIOELEMT APPLIC CHG RADIOELEMENT HANDLING RADIOACTIVE SEED IMPLANTATION, PROSTATE Referral ID Status Reason Start Date Expiration Date Visits Re quested Visits Authorized [id number] 1 1 Encounter Details Date Type Department Care Team (Latest Contact Info) Description 09/24/2016 7:41 AM [facility] - 09/24/2016 11:59 PM [facility] Hospital Encounter [facility] Ultrasound [address] [place] [phone] Junior Ahumada MD [address] [place] [address] [address] [place] [address] Malignant neoplasm of prostate Discharge Disposition: Home or Self Care Social [...] Procedure Name Priority Date/Time Associated Diagnosis Comments US GUIDED INTRAOPERATIVE STUDY Routine 09/24/2016 10:58 AM [facility] Malignant neoplasm of prostate documented in this encounter Results * US Guided Intraoperative Study (09/24/2016 10:58 AM [facility]) Anatomical Region Laterality Modality Ultrasound 09/24/2016 1:42 PM [facility] Narrative 09/24/2016 1:43 PM [facility] ULTRASOUND INTRAOPERATIVE STUDY HISTORY: ??Prostate cancer COMPARISON: [...] encounter Visit Diagnoses Diagnosis Malignant neoplasm of prostate documented in this encounter Care Teams Gear Room Keeper Relationship Specialty Start Date End Date Lanre Burrell MD PCP - General Internal Medicine 09/24/16 documented as of this encounter
--- OUTSIDE RECORDS SUMMARY | 2024-05-11 16:02 | XMS_ITS | Encounter Summary ---
Author Organization [facility] Address [address] [place] [address] Care Team Providers Care Manager Background Name Role Phone Lanre Burrell MD Primary Care Provider [phone] Encounter Details Date Type Department Care Team (Late st Contact Info) Description 01/05/2024 Orders Only RADIOLOGY VIEW ONLY [address] [place] [address] [place] [address] [place], [place] [id number] Social History Tobacco Use Types Packs/Day Years [...] Date/Time Associated Diagnosis Comments PET EXTERNAL RESULT 01/05/2024 1 2:30 PM MST documented in this encounter Results * PET External Result (01/05/2024 12:30 PM MST) Anatomical Region Laterality Modality Nuclear Medicine 01/05/2024 1:53 PM MST Impressions 01/05/2024 1:53 PM MST IMPRESSION: No detrimental interval change. Stable diffuse low level nonspecific tracer activity in the prostate containing brachytherapy seeds. No tracer avid nodes or distant tracer avid metastatic disease. Decreased size of nonspecific left upper retroperitoneal subtle soft tissue nodule again devoid of tracer uptake. ORDERED BY: SAMANTHA CASTILLO, [id number] Performed at [facility] ??Electronically signed by Dr. MANUEL PAIGE MD SMIL ID: [id number] Date of Service: 01/05/2024 Narrative 01/05/2024 1:53 PM [facility] PET/CT BODY SCAN - F-18 PYLARIFY (PIFLUFOLOSTAT) HISTORY: Prostate cancer. COMPARISON: PET/CT 12/20/2022 TECHNIQUE: A PET/CT study was performed from the head to the mid thigh after the intravenous administration of F-18 Pylarify listed below in an uptake time of approximately [address] portion of the PET/CT study was used for the purposes of attenuation correction and image fusion only, and is not equivalent to a diagnostic quality CT scan. Radiopharmaceutical: 9.6 mCi F18 IV: PYLARIFY FINDINGS: HEAD AND NECK: Nonfocal intracranial tracer uptake. No enlarged or tracer avid lymph nodes in the neck. CHEST: Normal tracer biodistribution in the chest. No tracer avid or enlarged thoracic lymph nodes. No tracer avid pulmonary nodules or masses. A 5 mm posterior right lower lobe nodule is more conspicuous but lacks tracer uptake, below size threshold for meaningful assessment by PET (image 136). Calcified granuloma in the right lower lobe just inferiorly and tiny subpleural calcified granuloma in the posterior left lower lobe. Heart size is borderline enlarged. No pericardial effusion. ABDOMEN AND PELVIS: Decreased size of 7 mm subtle nodule in the left upper retroperitoneum on image 172, again devoid of tracer uptake, previously 9 mm. Tracer activity at the posterior to the bladder to the left seminal vesicles medially is likely artifactual. Brachytherapy seeds in the prostate with stable nonspecific diffuse low-level tracer activity (image 275, SUV max 3.8; previously 3.9). No enlarged or tracer avid nodes. Senescent perinephric stranding. Diverticulosis without evidence of acute diverticulitis. Bilateral fat- containing inguinal hernias. Tiny fat-containing paraumbilical hernia. Bladder is underdistended, limiting evaluation. Right lateral abdominal wall transverse musculature intramuscular lipoma. MUSCULOSKELETAL AND EXTREMITIES: No tracer avid or blastic osseous lesions. Procedure Note Manuel Paige MD - 01/05/2024 PET/CT BODY SCAN - F-18 PYLARIFY (PIFLUFOLOSTAT) HISTORY: Prostate cancer. COMPARISON: PET/CT 12/20/2022 TECHNIQUE: A PET/CT study was performed from the head to the mid thighafter the intravenous administration of F-18 Pylarify listed below in an uptake timeof approximately [address] portion of the PET/CT study was used forthe purposes of attenuation correction and image fusion only, and is not equivalent to adiagnostic quality CT scan. Radiopharmaceutical: 9.6 mCi F18 IV: PYLARIFY FINDINGS: HEAD AND NECK: Nonfocal intracranial tracer uptake. No enlarged or tracer avid lymphnodes in the neck. CHEST: Normal tracer biodistribution in the chest. No tracer avid or enlargedthoracic lymph nodes. No tracer avid pulmonary nodules or masses. A 5 mm posterior rightlower lobe nodule is more conspicuous but lacks tracer uptake, below size thresholdfor meaningful assessment by PET (image 136). Calcified granuloma in the right lower lobejust inferiorly and tiny subpleural calcified granuloma in the posterior leftlower lobe. Heart size is borderline enlarged. No pericardial effusion. ABDOMEN AND PELVIS: Decreased size of 7 mm subtle nodule in the left upper retroperitoneum onimage 172, again devoid of tracer uptake, previously 9 mm. Tracer activity at the posteriorto the bladder to the left seminal vesicles medially is likely artifactual. Brachytherapyseeds in the prostate with stable nonspecific diffuse low-level tracer activity ([id number], SUV max 3.8; previously 3.9). No enlarged or tracer avid nodes. Senescentperinephric stranding. Diverticulosis without evidence of acute diverticulitis. Bilateralfat-containing inguinal hernias. Tiny fat-containing paraumbilical hernia. Bladder isunderdistended, limiting evaluation. Right lateral abdominal wall transverse musculatureintramuscular lipoma. MUSCULOSKELETAL AND EXTREMITIES: No tracer avid or blastic osseous lesions. IMPRESSION: No detrimental interval change. Stable diffuse low level nonspecific tracer activity in the prostatecontaining brachytherapy seeds. No tracer avid nodes or distant tracer avid metastatic disease. Decreasedsize of nonspecific left upper retroperitoneal subtle soft tissue nodule againdevoid of tracer uptake. ORDERED BY: SAMANTHA CASTILLO, [id number] Performed at [facility] Electronically signed by Dr.TREVOR RAKEL LANTIGUA SMIL ID: [id number] Date of Service: 01/05/2024 Samantha Castillo MD IMG NM ORDERABL ES documented in this encounter Visit Diagnoses Not on filedocumented in this encounter Care Teams Manager Background Relationship Specialty Start Date End Date Lanre Burrell MD PCP - General Internal Medicine 09/24/16 documented as of this encounter
--- OUTSIDE RECORDS SUMMARY | 2024-05-11 16:02 | XMS_ITS | Clinical Summary ---
Author Organization [facility] Address Unknown Care Team Providers Care Supervisor Smoke Control Name Role Phone Unavailable Primary Care Physician [...] Role Encounter Diagnoses Location Date Ambulatory Encounter [id number] Sonido Wan [address] 8 12:05 pm PST Ambulatory Encounter [id number] Sonido Wan [address] 9 11:23 am PST Ambulatory Encounter [id number] Sonido Wan [id number] - Francia Omalley [facility] [place] 4 01:54 pm PDT First Visit [id number] Javier Hinkle Change in bowel habits Rectal bleeding [address] 4 09:00 am PDT Colonoscopy [id number] Trujillo Diverticulosis of large intestine without perforation or abs Evaluation of unexplained GI bleeding Other specified diseases of intestine Polyp of colon [facility] 08:00 am PDT Advance [...] 96 % 10/10/2023 08: 32 am PDT [id number] mmHg 10/10/2023 08:32 am PDT Height 67 in 10/10/2023 06:44 am PDT Weight 252 lbs 10/10/2023 06:44 am PDT BMI (Body Mass Index) kg/m2 10/10/2023 06:44 am PDT BP Systolic 161 mm[hg] 10/10/2023 08:32 am PDT BP Diastolic 72 mm[hg] 10/10/2023 08:32 am PDT Insurances Policy / Member / Group Numbers Plan Details Company Policy Gregory [id number] / / Plan Type:MCR Coverage Type:Primary Medicare [place] [id number] [address] [id number] / / Plan Type:MCRSUP Coverage Type:Secondary [facility] Medicare Supplement [id number] [address]
--- OUTSIDE RECORDS SUMMARY | 2024-05-11 16:02 | XMS_ITS | Encounter Summary ---
Author Organization [facility] Address [address] [place] [address] Care Team Providers Care Demolition Hammer Operator Name Role Phone Lanre Burrell MD Primary Care Provider [phone] Encounter Details Date Type Department Care Team (Late st Contact Info) Description 02/20/2017 Ancillary Orders [facility] Nuclear Medicine [address] [place] [address] Junior Ahumada MD [address] [facility] [address] [place], [place] [id number] Prostate cancer Social History Tobacco Use Types [...] prostate documented in this encounter Care Teams Demolition Hammer Operator Relationship Specialty Start Date End Date Lanre Burrell MD PCP - General Internal Medicine 09/24/16 documented as of this encounter
--- OUTSIDE RECORDS SUMMARY | 2024-05-11 16:02 | XMS_ITS | Encounter Summary ---
Author Organization [facility] Address [address] [place] [address] Care Team Providers Care Cataloging Assistant Name Role Phone Lanre Burrell MD Primary Care Provider [phone] Reason for Referral * Nuclear Medicine (Routine) - Closed Specialty Diagnoses / Procedures Referred By Mary monge Referred To Contact Diagnoses Prostate CA Procedures NM Interstitial Radiation Source Application Complex Junior Ahumada MD [address] [facility] [address] [place] [address] Referral ID Status Reason Start Date Expiration Date Visits Re quested Visits Authorized [id number] Closed 02/20/2017 08/19/2017 [facility] Encounter Details Date Type Department Care Team ([facility] st Contact Info) Description 02/20/2017 Ancillary Orders [facility] Nuclear Medicine [address] [place] [address] Junior Ahumada MD [address] [facility] [address] [place] [address] Prostate CA Social History Tobacco Use Types Packs/Day Years [...] documented as of this encounter Results * NM Interstitial Radiation Source Application Complex (09/24/2016 10:55 AM [facility]) Narrative SMIL - 02/20/2017 11:05 AM [facility] This was an auto-finalized study. Junior Ahumada MD IMG NM ORDERABLES SMIL documented in this encounter Visit Diagnoses Diagnosis Prostate CA Malignant neoplasm of prostate Prostate CA Malignant neoplasm of prostate documented in this encounter Care Teams Cataloging Assistant Relationship Specialty Start Date End Date Lanre Burrell MD PCP - General Internal Medicine 09/24/16 documented as of this encounter
--- OUTSIDE RECORDS SUMMARY | 2024-05-11 16:02 | XMS_ITS | Clinical Summary ---
Author Organization [facility] Address Unknown Care Team Providers Care Aviation Project Engineer Name Role Phone Unavailable Primary Care Physician Unavailab le Medications Medication Dose Frequency Directions Start Date End Galen e Xarelto 90 amlodipine-benazepril 90 amiodarone 90 triamterene-hydrochlorothiazid 36 atorvastatin 90 Problems Problem Status Start Date End Date Change in bowel habits (R19.4 - ICD-10) Active Evaluation of unexplained GI bleeding (null - null) Ac tive 10/10/2023 Rectal bleeding (K62.5 - ICD-10) Active asthma (null - null) Atrial Fibrillation (I48.91 - ICD-10) Hyperlipidemia (E78.5 - ICD-10) hypertension (I10 - ICD-10) Prostate Cancer (D07.5 - ICD-10) Encounters Encounter Performer Performer Role Encounter Diagnoses Location Date Ambulatory Encounter [id number] Sonido Wan [address] 8 12:05 pm PST Ambulatory Encounter [id number] Sonido Wan [address] 9 11:23 am PST Ambulatory Encounter [id number] Sonido Wan [id number] Francia De Souza [facility] [place] 4 01:54 pm PDT First Visit [id number] Trujillo Change in bowel habits Rectal bleeding [address] 4 09:00 am PDT Ambulatory Encounter [id number] Trujillo Evaluation of unexplained GI bleeding [facility] [place] 4 08:00 am PDT Advance Directives Directive [...] 96 % 10/10/2023 07: 39 am PDT [id number] mmHg 10/10/2023 07:39 am PDT Height 67 in 10/10/2023 06:44 am PDT Weight 252 lbs 10/10/2023 06:44 am PDT BMI (Body Mass Index) kg/m2 10/10/2023 06:44 am PDT BP Systolic 199 mm[hg] 10/10/2023 07:39 am PDT BP Diastolic 91 mm[hg] 10/10/2023 07:39 am PDT Insurances Policy / Member / Group Numbers Plan Details Company Policy Gregory [id number] / / Plan Type:[facility] Coverage Type:Primary Medicare [place] [address] [address] [id number] / / Plan Type:MCRSUP Coverage Type:Secondary [employer] AARP Medicare Supplement [id number] [address]
--- OUTSIDE RECORDS SUMMARY | 2024-05-11 16:02 | XMS_ITS | Encounter Summary ---
Author Organization [facility] Address [address] [place] [address] Care Team Providers Care Embedded Linux Developer Name Role Phone Lanre Burrell MD Primary Care Provider [phone] Reason for Visit * Auth/Cert Specialty Diagnoses / Procedures Referred By Mary monge Referred To Contact Diagnoses Malignant neoplasm of prostate Malignant neoplasm of prostate [C61] Procedures CHG INTERSTI RADIOELEM APPL COMPLX MD PERCUT/NEEDLE INSERT,PROSTATE,RADIOISOT CHG ECHO,TRANSRECTAL,PROSTATE VOL CHG SONO GUIDE RADIOELEMT APPLIC CHG RADIOELEMENT HANDLING RADIOACTIVE SEED IMPLANTATION, PROSTATE Referral ID Status Reason Start Date Expiration Date Visits Re quested Visits Authorized [id number] 1 1 Encounter Details Date Type Department Care Team (Late st Contact Info) Description 09/24/2016 8:04 AM MST Anesthesia Event [facility] Inpatient Surgery [address] [place] [address] Betty Wesley MD [address] [place] [address] Anesthesia Record Procedure Summary Procedure Name Responsible Anesthesiologist Anesthesia Start Time Anesthesia Stop Time RADIOACTIVE SEED IMPLANTATION, PROSTATE ULTRASOUND Betty Wesley MD 09/24/16 0804 09/24/16 0929 Events Date Time Event Comment 09/24/2016 0718 0804 An Start 0806 An Start Data 0811 An Induction 0813 An Intubation 0832 an thalia now Time out 0922 An Emergence 0924 An Extubation 0924 an stop data 0929 An Stop Meds Name Total midazolam (VERSED) 1 mg/mL 2 mg fentaNYL (SUBLIMAZE) 50 mcg/mL injection 125 mcg propofol (DiPRIVan) injection 200 mg lidocaine 1% 3 mL ePHEDrine 20 mg ondansetron (ZOFRAN) injection 4 mg cefTRIAXone (ROCEPHIN) 1 g IV push 1 g lactated ringers infusion 900 mL * Agents Name Sevo (exp) FiO2 (%) Analyzed N2O (insp) ETCO2 (mmHg) O2 Sevo (insp) * Blood No blood administrations on file. Lines, Drains, and Airways Type Details Placement Removal Peripheral IV Size (Gauge): 20 G; Orientation: Left; Location: Hand; Site Prep: Alcohol; Local Anesthetic: None; Inserted by: Brandon KEENAN RN; Patient Tolerance: Tolerated well; LDA Removed Catheter Intact: 1 09/24/16 0715 by Daria Keenan RN 09/24/16 1039 by Simin Peter RN Airway Airway Device: LMA; LMA Size: 5.0; Inserted in: oral; Inserted by: Anesthesiologist; Style: Cuffed; Cuff Volume: Minimal Occlusive pressure; Secured Location: Center; Secured By: Cloth tape; Insertion attempts: 1; Ventilation Between Attempts: BVM 09/24/16 0813 by Betty Wesley MD 09/24/16 0924 by Betty Wesley MD Urethral Catheter 09/24/16; 0820; Nahomi GARSIA RN; 1; Coude; 16 Fr.; Per order 09/24/16 0820 by Bryn Garsia RN 09/24/16 0822 by Bryn Garsia RN documented in this encounter Social History Tobacco [...] on file documented as of this encounter OR Notes * Anesthesia Postprocedure Evaluation - Betty Wesley MD - 09/24/2016 9:28 AM MST Anesthesia Post Evaluation Patient: Du Clements Anesthesia Type: general Anesthesia Post Evaluation Patient participation: PACU Level of consciousness: awake Pain management: adequate Airway patency: adequate Anesthetic complications: no PONV: none Cardiovascular status: acceptable and hemodynamically stable Hydration status: stable Last vitals BP (!) 152/70 mmHg (09/24/16 0640) Temp 36.3 ??C (97.4 ??F) (09/24/16 0640) Pulse 59 (09/24/16 0640) Resp 20 (09/24/16 0640) SpO2 97 % (09/24/16639) IBP * Anesthesia Preprocedure Evaluation - Betty Wesley MD - 09/23/2016 5:52 PM MST Anesthesia Evaluation Patient summary reviewed Nursing notes reviewed No history of anesthetic complications Airway Mallampati: III TM distance: >3 FB Neck ROM: full Comment: Thick, obese neck Dental - normal exam Pulmonary - negative ROS breath sounds clear to auscultation (-) COPD, asthma, shortness of breath, recent URI, sleep apnea, smoker (Quit 1998) Cardiovascular Exercise tolerance: good (> 2 flights) (+) hypertension (120s-130s sbp at baseline) well controlled, (-) valvular problems/murmurs, past AR, CAD, CABG/stent, dysrhythmias ECG reviewed Rhythm: regular Rate: normal Neuro/Psych - negative ROS and normal exam (-) seizures, neuromuscular disease, TIA, CVA GI/Hepatic/Renal - negative ROS (-) GERD, liver disease Endo/Other (+) obesity, hyperlipidemia (-) diabetes mellitus, hypothyroidism, hyperthyroidism, blood dyscrasia, anemia Comments: Prostate CA Abdominal Pain Scale Anesthesia Plan ASA 3 Planned anesthesia: general intravenous induction Anesthetic plan and risks discussed with patient. Use of blood products discussed with patient whom. The patient/guardian appears to understand and agrees to proceed with the anesthetic plan.surgical consent viewed anesthesia consent viewed anesthesia consent signed No Known Allergies Anesthesia History History Comments History Comments No specialty history recorded Other Medical History Hypertension High cholesterol Cancer Anesthesia Family History Problem Relations (Age of Onset) No family medical history recorded Substance History Smoking Status: Former Smoker Quit Smokin09/17/98 Smokeless Tobacco Status: Unknown Alcohol use: 0.0 oz per week Drug use: No Surgical History History Comments History Comments LEFT KNEE REPAIR TONSILLECTOMY documented in this encounter Miscellaneous Notes * Transfer of Care - Betty Wesley MD - 09/24/2016 9:28 AM MST Anesthesia Transfer of Care Note Patient: Du Clements Procedures performed: Procedure(s): RADIOACTIVE SEED IMPLANTATION, PROSTATE ULTRASOUND Patient location: PACU Transfer of Care Checklist Used: yes Pain: Adequate analgesia Assessment: no apparent anesthetic complications, tolerated procedure well, no evidence of recall Vital signs: stable Level of consciousness: awake documented in this encounter Plan of Treatment Not on file documented as of this encounter Visit Diagnoses Not on filedocumented in this encounter Administered Medications Inactive Administered Medications - up to 3 most recent administrations Medication Order MAR Action Action Date Dose Rate Site cefTRIAXone (ROCEPHIN) 1 g IV push 1 g, Intravenous, actuarial technician to OR, First dose on Fri09/24/16 at 0730, For 1 dose, Dilute each 1 g vial with NS flush 10 mL to a final concentration of 100 mg/mL., Pre-Op, Routine New Bag 09/24/2016 8:16 AM MST 1 g ePHEDrine 50 mg/mL injection As needed, Starting on Fri09/24/16 at 0825, Anesthesia Intra-Op, Routine Given 09/24/2016 9:08 AM MST 5 mg Given 09/24/2016 8:56 AM MST 5 mg Given 09/24/2016 8:38 AM MST 2.5 mg fentaNYL (SUBLIMAZE) 50 mcg/mL injection As needed, SEVERE pain (score 7-10), Starting on Fri09/24/16 at 0810, Anesthesia Intra-Op, Routine Given 09/24/2016 8:43 AM MST 25 mcg Given 09/24/2016 8:11 AM MST 50 mcg Given 09/24/2016 8:10 AM MST 50 mcg lidocaine (XYLOCAINE) 1 % injection As needed, Starting on Fri09/24/16 at 0811, Anesthesia Intra-Op, Routine Given 09/24/2016 8:11 AM MST 3 mLs midazolam (VERSED) 2 mg/2 mL injection As needed, Anxiety, Starting on Fri09/24/16 at 0807, Anesthesia Intra-Op, Routine Given 09/24/2016 8:07 AM MST 2 mg ondansetron (ZOFRAN) 2 mg/mL injection As needed, Nausea, Vomiting, Starting on Fri09/24/16 at 0843, Anesthesia Intra-Op, Routine Given 09/24/2016 8:43 AM MST 4 mg propofol (DiPRIVan) 10 mg/mL injection As needed, Starting on Fri09/24/16 at 0811, Anesthesia Intra-Op, Routine Given 09/24/2016 8:11 AM MST 200 mg documented in this encounter Care Teams Embedded Linux Developer Relationship Specialty Start Date End Date Lanre Burrell MD PCP - General Internal Medicine 09/24/16 documented as of this encounter
--- OUTSIDE RECORDS SUMMARY | 2024-05-11 16:02 | XMS_ITS | Clinical Summary ---
Author Organization [facility] Address Unknown Care Team Providers Care Auto Machinist Name Role Phone Unavailable Primary Care Physician [...] Role Encounter Diagnoses Location Date Ambulatory Encounter [id number] Sonido Wan [address] 8 12:05 pm PST Ambulatory Encounter [id number] Sonido Wan [address] 9 11:23 am PST Ambulatory Encounter [id number] Sonido Wan [id number] - Francia Omalley [facility] [place] 4 01:54 pm PDT First Visit [id number] Javier Hinkle Change in bowel habits Rectal bleeding [address] 4 09:00 am PDT Colonoscopy [id number] Trujillo Diverticulosis of large intestine without perforation or abs Evaluation of unexplained GI bleeding Other specified diseases of intestine Polyp of colon [facility] 08:00 am PDT Advance Directives [...] 96 % 10/10/2023 08: 32 am PDT [id number] mmHg 10/10/2023 08:32 am PDT Height 67 in 10/10/2023 06:44 am PDT Weight 252 lbs 10/10/2023 06:44 am PDT BMI (Body Mass Index) kg/m2 10/10/2023 06:44 am PDT BP Systolic 161 mm[hg] 10/10/2023 08:32 am PDT BP Diastolic 72 mm[hg] 10/10/2023 08:32 am PDT Insurances Policy / Member / Group Numbers Plan Details Company Policy Gregory [id number] / / Plan Type:MCR Coverage Type:Primary Medicare [place] [id number] [address] [id number] / / Plan Type:MCRSUP Coverage Type:Secondary [facility] Medicare Supplement [id number] [address]
--- OUTSIDE RECORDS SUMMARY | 2024-05-11 16:02 | XMS_ITS | Clinical Summary ---
Author Organization [facility] Address [address] [place] [address] Care Team Providers Care Laborer/Key Man Name Role Phone Lanre Burrell MD Primary Care Provider [phone] Allergies No known active allergies Medications Medication Sig Dispensed Refills Start Date End Date Status atorvastatin (LIPITOR) 40 mg tablet Take 40 mg by mouth at bedtime. Active amLODIPine-benazepril (LOTREL) 10-40 MG per capsule Take 1 capsule by mouth daily. Active triamterene-hydroCHLOR Othiazide (DYAZIDE) 37.5-25 mg per capsule Take 1 capsule by mouth daily. Active atenolol (TENORMIN) 50 mg tablet Take 50 mg by mouth daily. Active KRILL OIL PO Take by mouth. Active aspirin 81 MG tablet Take 162 mg by mouth daily. Active OIL OF OREGANO PO Take by mouth. Act ravi Cholecalciferol (VITAMIN D-3 PO) Take by mouth. Acti ve Active Problems Problem Noted Date Diagnosed Date Malignant neoplasm of prostate 09/24/2016 Encounters Date Type Department Care Team Description 03/12/2024 Orders Only RADIOLOGY VIEW ONLY [address] [place] [address] Samantha Castillo MD from Last 3 Months Social History Tobacco Use Types Packs/Day Years Used Date Smoking Tobacco: Former Cigarettes Q uit: 09/17/1998 Alcohol Use Standard Drinks/Week Comments Yes 0 (1 standard drink = 0.6 oz pur e alcohol) 2-3 GLASSES WINE/WEEK Sex and Gender Information Value Date Recorded Sex Assigned at Not on file Gender Identity Not on file Sexual Orientation Not on file Last Filed Vital Signs Vital Sign Reading Time Taken Comments Blood Pressure 141/81 09/24/2016 10:15 AM [facility] Pulse 54 09/24/2016 10:15 AM [facility] Temperature 36.3 ??C (97.4 ??F) 09/24/2016 10:00 AM [facility] Respiratory Rate 16 09/24/2016 10:15 AM [facility] Oxygen Saturation 96% 09/24/2016 10:15 AM [facility] Inhaled Oxygen Concentration - - Weight 101.2 kg (223 lb) 09/24/2016 6:40 AM [facility] Height 170.2 cm (5' 7 ) 09/24/2016 6:40 AM [facility] Body Mass Index 34.93 09/24/2016 6:40 AM [facility] Plan of Treatment Health Maintenance Due Date Last Done Comments Cologuard 1950 Colonoscopy 1950 Colorectal Cancer Screening 1950 Fecal Immunohistochemical Test 1950 Sigmoidoscopy 1950 Hepatitis C Screen 1968 DTaP,Tdap,or Td Vaccines (1 - Tdap) 1969 Zoster (Shingles) Vaccine (1 of 2) 2000 Abdominal Aortic Aneurysm (A AA) Screening 2015 Pneumococcal Vaccine: 65+ Ye ars (1 of 1 - PCV) 2015 COVID-19 Vaccine ( - 2023- season) 2024 Influenza Vaccine (#1) 2024 RSV Vaccine (1 - 1-dose 75+ series) 2025 HPV VACCINES Aged Out No longer eligi ble based on patient's age to complete this topic Hepatitis A Vaccine Aged Out No longe r eligible based on patient's age to complete this topic Procedures Procedure Name Priority Date/Time Associated Diagnosis Comments PET EXTERNAL RESULT 03/11/2024 1 1:45 AM [facility] from Last 3 Months Results * PET External Result (03/11/2024 11:45 AM [facility]) Anatomical Region Laterality Modality Nuclear Medicine 03/12/2024 9:25 AM [facility] Impressions 03/12/2024 9:25 AM [facility] IMPRESSION: No findings convincing for FDG avid malignancy. ORDERED BY: SAMANTHA CASTILLO, [id number] Performed at [facility] ??Electronically signed by Dr. LEENA MELENDEZ MD SMIL ID: [id number] Date of Service: 03/11/2024 Narrative 03/12/2024 9:25 AM [facility] PET/CT SCAN HISTORY: Prostate cancer. Restaging. COMPARISON: [...] FDG avid malignancy. ORDERED BY: SAMANTHA CASTILLO, [id number] Performed at [facility] Electronically signed by Dr. DRAKE LANTIGUA SMIL ID: [id number] Date of Service: 03/11/2024 Samantha Castillo MD IMG NM ORDERABL ES from Last 3 Months Care Teams Laborer/Key Man Relationship Specialty Start Date End Date Lanre Burrell MD PCP - General Internal Medicine 09/24/16
--- OUTSIDE RECORDS SUMMARY | 2024-05-11 16:02 | XMS_ITS | Clinical Summary ---
Author Organization [id number] Address Unknown Care Team Providers Care Retail Sales Representative Name Role Phone Unavailable Primary Care Physician [...] Role Encounter Diagnoses Location Date Ambulatory Encounter [id number] - Sonido Chinchilla [address] 8 12:05 pm PST Ambulatory Encounter [id number] - Sonido Chinchilla [address] 9 11:23 am PST Ambulatory Encounter [id number] - Sonido Chinchilla [id number] - Francia Omalley [facility] 4 01:54 pm PDT First Visit [id number] - Javier White Change in bowel habits Rectal bleeding [address] 4 09:00 am PDT Colonoscopy [id number] - Christopher Javier Diverticulosis of large intestine without perforation or abs Evaluation of unexplained GI bleeding Other specified diseases of intestine Polyp of colon [facility] 4 08:00 am PDT Advance [...] Pathology The [facility] Return to normal activities [...] 96 % 10/10/2023 08: 32 am PDT [id number] mmHg 10/10/2023 08:32 am PDT Height 67 in 10/10/2023 06:44 am PDT Weight 252 lbs 10/10/2023 06:44 am PDT BMI (Body Mass Index) kg/m2 10/10/2023 06:44 am PDT BP Systolic 161 mm[hg] 10/10/2023 08:32 am PDT BP Diastolic 72 mm[hg] 10/10/2023 08:32 am PDT Insurances Policy / Member / Group Numbers Plan Details Company Policy Gregory [id number] / / Plan Type:MCR Coverage Type:Primary Medicare [place] [address] [address] [id number] / / Plan Type:MCRSUP Coverage Type:Secondary UHC AARP Medicare Supplement [id number] [address]
== END 2024-05-04 10:22 | disposition home or self-care (01) ==
PROVIDERS: Emergency Provider Nurse Practitioner Family
DX: J20.9 Acute bronchitis, unspecified (principal); Z79.01 Long term (current) use of anticoagulants; Z79.899 Other long term (current) drug therapy
CPT/HCPCS: 71046; 99203; G0463

== ENCOUNTER 2025-04-09 10:48 | Emergency (ER) | payer MEDICARE, SELFPAY ==
--- NOTE | ~2025-04-09 | XR_ITS ---
Examination: XR chest 2V Clinical History: y Comparison: 05/04/2024 Technique: PA and Lateral Findings: Cardiomediastinal silhouette normal size and configuration. Lungs clear. No acute bony abnormality. IMPRESSION: 1. No acute cardiopulmonary findings. Reviewed, dictated and finalized at location R. OPERATOR
--- OUTSIDE RECORDS SUMMARY | 2025-04-09 10:52 | XMS_ITS | Encounter Summary ---
Author Organization [facility] Address [address] [place] [address] Care Team Providers Care Tool Keeper Name Role Phone Lanre Burrell MD Primary Care Provider [phone] Lanre Burrell MD Primary Care Provider [phone] Encounter Details Date Type Department Care Team (Late st Contact Info) Description 02/19/2017 Ancillary Orders [facility] Nuclear Medicine [address] [place] [address] Junior Ahumada MD [address] [place], [place] [address] Prostate cancer Social History Tobacco Use Types Packs/Day Years Used Date Smoking Tobacco: Former Cigarettes 0 Q uit: 09/17/1998 Alcohol Use Standard Drinks/Week Comments Yes 0 (1 standard drink = 0.6 oz pur e alcohol) 2-3 GLASSES WINE/WEEK Sex and Gender Information Value Date Recorded Sex Assigned at Not on file Legal Sex Male 8:46 AM [facility] Gender Identity Not on file Sexual Orientation Not on file documented as of this encounter Plan of Treatment Not on file documented as of this encounter Visit Diagnoses Diagnosis Prostate cancer Malignant neoplasm of prostate documented in this encounter Care Teams Tool Keeper Relationship Specialty Start Date End Date Lanre Burrell MD PCP - General Internal Medicine 09/24/16 08/15/24 Lanre Burrell MD [address] [place] [address] PCP - General Internal Medicine 08/16/24 documented as of this encounter
--- OUTSIDE RECORDS SUMMARY | 2025-04-09 10:52 | XMS_ITS | Data Portability ---
Author Organization [facility] Address [address] [place] [address] Care Team Providers Care Chief Of Staff Name Role Phone DANE BONNIEPOLOYsabel Back Tender Cloth Printing Assessment No assessment recorded. Plan of Treatment Reminders Order Date Submit Date Provider Last Modified By Organization Details Last Modified Time Details Appointments Establish ed Patient 30 2024 08:30A Lidya Kowalski MD Not available Not available Not available Lab None recorded. Referral None recorded. Procedures None recorded. Surgeries None recorded. Imaging electroca rdiogram 2024 025 [email or web address] In-Office Order, Internal Use Only DO Not Attach Compendium DO Not Attach Compendium, Do Not Delete/merge, [id number] 11/16/2024 13:23:15 Medication Orders atenolol 25 mg tablet 2024 025 [facility] [id number], [address], [place], [address], 11/15/2024 16:27:12 Patient TargetsNo targets recorded. Patient Instructions Encounter Date Encounter Id Patient Instructions Last Modified By Organization Details Last Modified Time 11/15/2024 [id number] eating healthy foods: care instructions Not available 11/15/2024 16:27:06 high blood pressure: care instructions Not available 11/15/2024 16:27:06 Reason for Referral None Reported. Results Created Date Observation Date Name Description Value Unit Range Abnormal Flag Note LastModifiedBy Organization Detail LastModifiedTime 01/26/20 25 01/25/2025 CBC W/AUT O DIFF WBC 5.5 x10(3 )/mcL 4.5-11 .0 Not Available [facility] [address], [place], [address], 01/25/2025 10:23:29 01/26/20 25 01/25/2025 CBC W/AUT O DIFF RBC 4.90 x10(6 )/mcL 4.50-5 .70 Not Available [facility] [address], [place], [address], 01/25/2025 10:23:29 01/26/20 25 01/25/2025 CBC W/AUT O DIFF HGB 15.3 g/dL 13.2-1 7.3 Not Available [facility] [address], [place], [address], 01/25/2025 10:23:29 01/26/20 25 01/25/2025 CBC W/AUT O DIFF HCT 44.6 % 39.0-4 9.0 Not Available [facility] [address], [place], [address], 01/25/2025 10:23:29 01/26/20 25 01/25/2025 CBC W/AUT O DIFF MCV 91.1 fL 80.0-1 00.0 Not Available [facility] [address], [place], [address], 01/25/2025 10:23:29 01/26/20 25 01/25/2025 CBC W/AUT O DIFF MCH 31.3 pg 27.0-3 4.0 Not Available [facility] [address], [place], [address], 01/25/2025 10:23:29 01/26/20 25 01/25/2025 CBC W/AUT O DIFF MCHC 34.3 g/dL 32.0-3 7.0 Not Available [facility] [address], [place], [address], 01/25/2025 10:23:29 01/26/20 25 01/25/2025 CBC W/AUT O DIFF RDW 16.1 % 11.6-1 4.8 high Not Available [facility] [address], [place], [address], 01/25/2025 10:23:29 01/26/20 25 01/25/2025 CBC W/AUT O DIFF platelet count 315 x10(3 )/mcL 150-40 0 Not Available [facility] [address], [place], [address], 01/25/2025 10:23:29 01/26/20 25 01/25/2025 CBC W/AUT O DIFF MPV 7.5 fL 7.5-11 .3 Not Available [facility] [address], [place], [address], 01/25/2025 10:23:29 01/26/20 25 01/25/2025 CBC W/AUT O DIFF neutrophil rel 68.1 % 40.0-8 5.0 Not Available [facility] [address], [place], [address], 01/25/2025 10:23:29 01/26/20 25 01/25/2025 CBC W/AUT O DIFF lymphocyte rel 20.1 % 10.0-4 5.0 Not Available [facility] [address], [place], [address], 01/25/2025 10:23:29 01/26/20 25 01/25/2025 CBC W/AUT O DIFF monocyte rel 10.3 % 3.0-15 .0 Not Available [facility] [address], [place], [address], 01/25/2025 10:23:29 01/26/20 25 01/25/2025 CBC W/AUT O DIFF eosinophil rel 0.8 % 0.0-7. 0 Not Available [facility] [address], [place], [address], 01/25/2025 10:23:29 01/26/20 25 01/25/2025 CBC W/AUT O DIFF basophil rel 0.7 % 0.0-2. 0 Not Available [facility] [address], [place], [address], 01/25/2025 10:23:29 01/26/20 25 01/25/2025 CBC W/AUT O DIFF neutrophil abs 3.8 x10(3 )/mcL 1.8-7. 7 Not Available [facility] [address], [place], [address], 01/25/2025 10:23:29 01/26/20 25 01/25/2025 CBC W/AUT O DIFF lymphocyte abs 1.1 x10(3 )/mcL 1.0-4. 8 Not Available [facility] [address], [place], [address], 01/25/2025 10:23:29 01/26/20 25 01/25/2025 CBC W/AUT O DIFF monocyte abs 0.6 x10(3 )/mcL 0.0-0. 8 Not Available [facility] [address], [place], [address], 01/25/2025 10:23:29 01/26/20 25 01/25/2025 CBC W/AUT O DIFF eosinophil abs 0.0 x10(3 )/mcL 0.0-0. 5 Not Available [facility] [address], [place], [address], 01/25/2025 10:23:29 01/26/20 25 01/25/2025 CBC W/AUT O DIFF basophil abs 0.0 x10(3 )/mcL 0.0-0. 2 Not Available [facility] [address], [place], [address], 01/25/2025 10:23:29 01/26/20 25 01/25/2025 CBC W/AUT O DIFF manual diff None Not Available [facility] [address], [place], [address], 01/25/2025 10:23:29 01/26/20 25 01/25/2025 CBC W/AUT O DIFF NRBC auto rel 0 % Not Available [facility] [address], [place], [address], 01/25/2025 10:23:29 01/26/20 25 01/25/2025 CBC W/AUT O DIFF NRBC auto abs 0 x10(3 )/mcL Not Available [facility] [address], [place], [address], 01/25/2025 10:23:29 01/26/20 25 01/25/2025 PT PT 10.7 sec 9.5-12 .1 Not Available [facility] [address], [place], [address], 01/25/2025 10:38:32 01/26/20 25 01/25/2025 PT INR 1.01 ratio 0.87-1 .13 INTER PRETA TIVE DATA: Level of Thera py: Stand baldemar Dose Indic ation s: >[place] tment of venou s throm bosis >[place] tment of pulmo nary embol us >Prop hylax is again st venou s throm bosis or syste reginald embol izati on INR Targe t Range : 2.0 - 3.0 Level of Thera py: High Dose Indic ation s: >High -risk patie nts with mecha nical heart valve INR Targe t Range : 2.5 - 3.5 * The INR is for use when monit oring patie nts on Couma din only. * It is not recom harpal d for use with other antic oagul ants. Refer ence: Colin Gilbert, Sudarshan HARVEY., Tony Fisher., Sabino r Treva.. CHEST . 2001; 119.8 5-215 . Note: Proti me patie nt burke l range barnes ed 03/11 Not Available [facility] [address], [place], [address], 01/25/2025 10:38:32 01/26/20 25 01/25/2025 BMP sodium lvl 139 mEq/L 136-14 5 Not Available [facility] [address], [place], [address], 01/25/2025 10:43:56 01/26/20 25 01/25/2025 BMP potassium lvl 4.0 mEq/L 3.5-5. 1 Not Available [facility] [address], [place], [address], 01/25/2025 10:43:56 01/26/20 25 01/25/2025 BMP chloride lvl 103 mEq/L 98-107 Not Juli ilable [facility] [address], [place], [address], 01/25/2025 10:43:56 01/26/20 25 01/25/2025 BMP CO2 26 mEq/L 21-31 Not Available [facility] [address], [place], [address], 01/25/2025 10:43:56 01/26/20 25 01/25/2025 BMP glucose level 100 mg/dL 70-105 Not Available [facility] [address], [place], [address], 01/25/2025 10:43:56 01/26/20 25 01/25/2025 BMP BUN 21 mg/dL 7-25 Not Available [facility] [address], [place], [address], 01/25/2025 10:43:56 01/26/20 25 01/25/2025 BMP creatinine lvl 1.30 mg/dL 0.70-1 .30 Not Available [facility] [address], [place], [address], 01/25/2025 10:43:56 01/26/20 25 01/25/2025 BMP calcium lvl 9.7 mg/dL 8.6-10 .3 Not Available [facility] [address], [place], [address], 01/25/2025 10:43:56 01/26/20 25 01/25/2025 BMP BUN/creat 16 Not Availa ble [facility] [address], [place], [address], 01/25/2025 10:43:56 01/26/20 25 01/25/2025 BMP agap 10.0 mmol/ L 4.0-16 .0 Not Available [facility] [address], [place], [address], 01/25/2025 10:43:56 01/26/20 25 01/25/2025 BMP osmolality calc 291 mOsm/ kg 278-30 5 Not Available [facility] [address], [place], [address], 01/25/2025 10:43:56 01/26/20 25 01/25/2025 BMP sodium lvl 139 mEq/L 136-14 5 Not Available [facility] [address], [place], [address], 01/25/2025 10:43:58 01/26/20 25 01/25/2025 BMP potassium lvl 4.0 mEq/L 3.5-5. 1 Not Available [facility] [address], [place], [address], 01/25/2025 10:43:58 01/26/20 25 01/25/2025 BMP chloride lvl 103 mEq/L 98-107 Not Juli ilable [facility] [address], [place], [address], 01/25/2025 10:43:58 01/26/20 25 01/25/2025 BMP CO2 26 mEq/L 21-31 Not Available [facility] [address], [place], [address], 01/25/2025 10:43:58 01/26/20 25 01/25/2025 BMP glucose level 100 mg/dL 70-105 Not Available [facility] [address], [place], [address], 01/25/2025 10:43:58 01/26/20 25 01/25/2025 BMP BUN 21 mg/dL 7-25 Not Available [facility] [address], [place], [address], 01/25/2025 10:43:58 01/26/20 25 01/25/2025 BMP creatinine lvl 1.30 mg/dL 0.70-1 .30 Not Available [facility] [address], [place], [address], 01/25/2025 10:43:58 01/26/20 25 01/25/2025 BMP calcium lvl 9.7 mg/dL 8.6-10 .3 Not Available [facility] [address], [place], [address], 01/25/2025 10:43:58 01/26/20 25 01/25/2025 BMP BUN/creat 16 Not Availa ble [facility] [address], [place], [address], 01/25/2025 10:43:58 01/26/20 25 01/25/2025 BMP agap 10.0 mmol/ L 4.0-16 .0 Not Available [facility] [address], [place], [address], 01/25/2025 10:43:58 01/26/20 25 01/25/2025 BMP osmolality calc 291 mOsm/ kg 278-30 5 Not Available [facility] [address], [place], [address], 01/25/2025 10:43:58 01/26/20 25 01/25/2025 BMP eGFR CKD-epi 58 mL/mi n/1.7 3m2 >=90 low Not Available [facility] [address], [place], [address], 01/25/2025 10:43:58 01/26/20 25 01/25/2025 TSH TSH 1.27 micro -int_ units /mL 0.45-5 .33 Not Available [facility] [address], [place], [address], 01/25/2025 10:57:12 01/26/20 25 01/25/2025 PTT PTT 33.8 sec 23.5-3 2.0 high INTER PRETA TIVE DATA: Hepar in Thera peuti c Range Porci ne Hepar in: 51.5 to 81.3 secon ds This range repre sents appro ximat cynthia 0.3 to 0.7 Units of hepar in/mL . aPTT is for use in monit oring patie nts on unfra ction ated hepar in and direc t throm bin inhib itors . It is not recom harpal d for use with low molec ular weigh t hepar in or danap aroid . Not Available [facility] [address], [place], [address], 01/25/2025 10:57:13 11/16/19 25 elect rocar diogr am No observ ation record ed. [email or web address] In-Office Order Internal Use Only DO Not Attach Compendium DO Not Attach Compendium, Do Not Delete/merge, [id number] 11/15/2024 16:00:20 11/16/19 25 elect rocar diogr am No observ ation record ed. [email or web address] Not Available 2024 15:47:35 Result Notes None recorded. Problems Name Problem SNOMED Code Status Onset Date Resolution Date Notes Provider Name and Address Organization Details Recorded Time Persistent atrial fibrillation 534986914 Active 2024 MICHAEL Montoya [address], [place], [address], [facility] 16:25:33 Essential hypertension 68108433 Active 2024 MICHAEL Montoya [address], [place], [address], [facility] 16:26:34 Blood in urine 22834227 Active 2024 Abi Sorenson, CINDER WORKER-C [address], [place], [address], [facility] 16:27:52 Problem Notes None recorded. Procedures Surgical History Date Name Laterality Status Provider Name and Address Organization Details Recorded Time Orthopedic Surgery completed Alejandra Bronson [facility] 11/15/2024 15:48:44 Imaging Results None recorded. Procedure Notes None recorded. Medical Equipment None Reported. Allergies No known drug allergies Medications Name Sig Start Date Stop Date Status Note LastModified by Organization Details LastModified Time atorvastati n 40 mg tablet Take 1 tablet every day by oral route. active Not Available Not Available No t Available doxycycline hyclate 100 mg capsule TAKE 1 CAPSULE BY MOUTH TWICE DAILY FOR 7 DAYS 11/15 completed Not Available Not Available Not Available amiodarone 200 mg tablet Take 1 tablet every day by oral route. 11/15 completed Not Available Not Available Not Available benzonatate 200 mg capsule TAKE 1 CAPSULE BY MOUTH THREE TIMES DAILY NEEDED FOR COUGH 11/15 completed Not Available Not Available Not Available prednisone 20 mg tablet TAKE 2 TABLETS BY MOUTH DAILY FOR 5 DAYS 11/15 completed Not Available Not Available Not Available atenolol 25 mg tablet Take 1 tablet every day by oral route. 2024 active Not Available Not Available Not Avai lable amlodipine 5 mg tablet Take 1 tablet every day by oral route. active Not Available Not Available No t Available albuterol sulfate HFA 90 mcg/actuati on aerosol inhaler INHALE 2 PUFFS BY MOUTH EVERY 4 TO 6 HOURS NEEDED FOR SHORTNESS OF BREATH OR WHEEZING active Not Available Not Available No t Available Eliquis 2.5 mg tablet Take 1 tablet twice a day by oral route for 365 days. 2024 active Not Available Not Available Not Avai lable Vitals Date Recorded Body weight Body mass index (BMI) Body height Heart rate Oxygen saturation Systolic And Diastolic Provider Name and Address Organization Details Last Updated DateTime 455181. 39 g 37.1 kg/m2 170.18 cm 84 /min 95 % 138/62 mm[Hg] Anastasiia Bronson [facility] 16:00:15 Social History Question Answer Notes LastModified by Organizat ion Details LastModified Time Tobacco Smoking Status Former Smoker Alejandra Bronson [facility] 11/15/2024 15:48:44 Do You Have An Advance Directive? No 11/15/24 [email or web address] Information not available 11/15/2024 Are You Blind Or Do You Have Difficulty Seeing? No [email or web address] Information not available 11/15/2024 Is Blood Transfusion Acceptable In An Emergency? Yes 11/15/24 Information not available 11/15/2024 What Is Your Level Of Caffeine Consumption? Moderate [email or web address] Information not available 11/15/2024 Are You Deaf Or Do You Have Serious Difficulty Hearing? No [email or web address] Information not available 11/15/2024 What Type Of Diet Are You Following? REGULAR [email or web address] Information not available 11/15/2024 When Did You Quit Smoking? 16+yearssinc elastcigaret te [email or web address] Information not available 11/15/2024 Which Of Your Hands Is Dominant? Right [email or web address] Information not available 11/15/2024 What Was The Date Of Your Most Recent Tobacco Screening? 11/15/2024 [email or web address] Information not available 11/15/2024 Do You Have Any Pets? No Information not available 11/15/2024 What Is Your Relationship Status? [email or web address] Information not available 11/15/2024 How Many Years Have You Smoked Tobacco? 25 Information not available 11/15/2024 How Many Days In The Past Year Have You Consumed 5 Or More Drinks? 0 [email or web address] Information not available 11/15/2024 Sex: Unknown Functional Status Question Answer Note LastModified by Organizat ion Details LastModified Time Do you use any illicit or recreational drugs? No [email or web address] Information not available 11/15/2024 Do you or have you ever used any other forms of tobacco or nicotine? Yes [email or web address] Information not available 11/15/2024 What is your level of alcohol consumption? Occasional [email or web address] Information not available 11/15/2024 Are you able to care for yourself independently? Yes [email or web address] Information not available 11/15/2024 Do you or have you ever used e-cigarettes or vape? Never used electronic cigarettes [email or web address] Information not available 11/15/2024 Mental Status Question Answer Note LastModified by Organization D etails LastModified Time Do you feel stressed (tense, restless, nervous, or anxious, or unable to sleep at night)? [id number] [email or web address] Information not available 11/15/2024 Family History Relationship Description Onset Age of this Age Resolved Age Notes LastModified by Organization Details LastModified Time Mother Hypertensive disorder [email or web address] Not available 11/2024 15:48:43 Mother Hyperlipidem ia [email or web address] Not available 11/2024 15:48:43 Mother Heart disease [email or web address] Not available 11/2024 15:48:43 Mother Diabetes mellitus Not available 11/2024 15:48:43 Father Family history of malignant neoplasm [email or web address] Not available 11/2024 15:48:43 Father Hypertensive disorder [email or web address] Not available 11/2024 15:48:43 Father Hyperlipidem ia [email or web address] Not available 11/2024 15:48:43 Father Heart disease [email or web address] Not available 11/2024 15:48:43 Medical History Condition Response AFib (Atrial Fibrillation) Y High Blood Pressure (Hypertension) Y High Cholesterol (Hyperlipidemia) Y Cancer Y Bleeding Problems Y Past Encounters Encounter ID Performer Location Encounter Start Date Encounter Closed Date Diagnosis/Indication Diagnosis SNOMED-CT Code Diagnosis ICD10 Code Diagnosis IMO Codes Diagnosis Note [id number] Yesenia Kowalski MD [facility] [address] [place] [address] 11/15/2024 15:26:09 11/16/2024 03:05:06 Obesity 287777697 E66.9 Diet: 1800 Calories Low Glycemic Index Diet Exercise: Work up to 30 min 5x/week as tolerated Persistent atrial fibrillation 785256829 I48.[address] Bolaños. s/p DCCV, back in atrial fibrillati on despite being on amiodarone . Now in AF for approximat javi 2 years. Plan discussed: stop amiodarone , will consider adding atenolol if tachycardi cconsider afib ablation in the future Discussed plan for watchman including the risks, benefits and alternativ es. He will need to restart full dosing of Eliquis 5 mg BID for at least one month prior to watchman implant then after watchman can decrease back down to half a dose for 4 months. Faye Nguyễn will call to schedule watchman Essential hypertension 08435937 I10 58418 fairly well controlled continue current medication sconsider restarting atenolol if high heart rate Blood in urine 58774331 R31.9 50450613 hx of prostate cancer with hematuria while on full dosing of Eliquis, this has been decreased to half dosing. Interested in Watchman. Procedure discussed in detail. Will proceed. Health Concerns Section Related Observation LastModified by Organization Detai ls LastModified Time None Recorded Concern Status LastModified by Organization Details LastModified Time None Recorded Advance Directives Directive N: 11/15/24 Payers Insurance Date Sequence Insurance Name Policy Number Policy Gregory Covered Member ID Gregory Member ID Guarantor Name 02/23/2025 1 [place] Du Clements [id number] Du Clements 02/23/2025 2 AARP Du Clements [id number] Du Martinezellano 02/23/2025 2 AARP (MEDICARE SUPPLEMENT) Du Clements [id number] Du Clements Notes Date Note Type Note Provider Name and Address Organization Details Recorded Time 11/15/2024 text/html This is a 74 year old man with a past medical history of PAF s/p DCCV, prostate cancer, with a history of hematuria and hematochezia on blood thinner, only able to tolerate half dosing of Eliquis presents to EP for evaluation for watchman device. He feels that he had more energy when he is not in afib. He has been on amiodarone. 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 He does not sleep well due to frequent urination at night. He would like to consider ablation in the future. Discussed increasing his eliquis to full dosing for one month prior to watchman implant. He is accompanied by [place] [address] [facility] [address], [place], [address], [facility] 11/15/2024 19:15:38
--- OUTSIDE RECORDS SUMMARY | 2025-04-09 10:52 | XMS_ITS | Patient Health Record ---
Author Organization [facility] Address [address] [place] [address] Care Team Providers Care Hooker Laster Name Role Phone Patient, Patient Primary Care Provider Mj Flowers Unavailable [phone] Allergies No Known Allergies Reason For Referral No Information Medications Medication SIG (Take, Route, Frequency, Duration) Notes Start Date End Date Status Atorvastatin Calcium 40 MG Tablet Oral; Duration: 90 Days Acti ve Tamsulosin HCl 0.4 MG Capsule Oral; Duration: 90 Days Acti ve amLODIPine Besylate 5 MG Tablet Oral; Duration: 90 Days Acti ve Amiodarone HCl 200 MG Tablet Oral; Duration: 90 Days Acti ve Social History Social History Additional Details Category Social Info Options Details Social Questions Intake Tobacco Use curr ent Alcohol Use current have you used drugs for anyt jonathan other than medical reason in the past 12 mo? No Do you use Marijuana? None Plan Of Treatment No Information Insurance Providers Payer Name Payer Address Payer Phone Subscriber Number Group Number Insured Name Patient Relationship to Insured Coverage Start Date Coverage End Date Medicare Part B [address] [place] [address] [id number] CLAIRE STACY Self - patient is the insured [facility] Medicare Supplement [address] [place] [address] [id number] PLAN N CLAIRE STACY Self - patient is the insured Medical (General) History Medical History History ICD Code New Patient intake- Medical History: admits to the following: A-fib,bleeding problems,High Cholesterol,Hypertension Cancer: Prostate
--- OUTSIDE RECORDS SUMMARY | 2025-04-09 10:52 | XMS_ITS | Encounter Summary ---
Author Organization [facility] Address [address] [place] [address] Care Team Providers Care Facility Technician Name Role Phone Lanre Burrell MD Primary Care Provider [phone] Lanre Burrell MD Primary Care Provider [phone] Reason for Referral * Nuclear Medicine (Routine) - Closed Specialty Diagnoses / Procedures Referred By Contac t Referred To Contact Diagnoses Prostate CA Procedures NM Interstitial Radiation Source Application Complex Junior Ahumada MD Phone: tel: fax: Referral ID Status Reason Start Date Expiration Date Visits Re quested Visits Authorized [id number] Closed 02/20/2017 08/19/2017 1 1 [facility] Encounter Details Date Type Department Care Team ([facility] st Contact Info) Description 02/20/2017 Ancillary Orders [facility] Nuclear Medicine [address] [place] [address] Junior Ahumada MD [address] [facility] [address] [place], [place] [address] Prostate CA Social History Tobacco Use Types Packs/Day Years Used Date Smoking Tobacco: Former Cigarettes 0 Q uit: 09/17/1998 Alcohol Use Standard Drinks/Week Comments Yes 0 (1 standard drink = 0.6 oz pur e alcohol) 2-3 GLASSES WINE/WEEK Sex and Gender Information Value Date Recorded Sex Assigned at Not on file Legal Sex Male 8:46 AM [facility] Gender Identity Not on file Sexual Orientation Not on file documented as of this encounter Plan of Treatment Not on file documented as of this encounter Results * NM Interstitial Radiation Source Application Complex (09/24/2016 10:55 AM [facility]) Narrative SMIL - 02/20/2017 11:05 AM [facility] This was an auto-finalized study. us Junior Ahumada MD IMG NM ORDERABLES Final Res ult SMIL documented in this encounter Visit Diagnoses Diagnosis Prostate CA Malignant neoplasm of prostate Prostate CA Malignant neoplasm of prostate documented in this encounter Care Teams Facility Technician Relationship Specialty Start Date End Date Lanre Burrell MD PCP - General Internal Medicine 09/24/16 08/15/24 Lanre Burrell MD [address] [facility] [address] [place] [address] PCP - General Internal Medicine 08/16/24 documented as of this encounter
--- OUTSIDE RECORDS SUMMARY | 2025-04-09 10:52 | XMS_ITS | Clinical Summary ---
Author Organization [facility] Address [address] [place] [address] Care Team Providers Care Choker Setter Name Role Phone Lanre Burrell MD Primary Care Provider [phone] Allergies No known active allergies Medications atorvastatin (LIPITOR) 40 mg tablet Take 40 mg by mouth every morning. Active triamterene-hyd roCHLOROthiazid e (DYAZIDE) 37.5-25 mg per capsule Take 1 capsule by mouth 3 (three) times a week. on Friday, Friday, and Friday. Active KRILL OIL PO Take 1 Dose by mouth daily. Active aspirin 81 MG tablet Take 81 mg by mouth every morning. Active Cholecalciferol (VITAMIN D-3 PO) Take 1 Dose by mouth daily. Active amiodarone (PACERONE) 200 mg tablet Take 200 mg by mouth every morning. Active amLODIPine-elisabeth zepril (LOTREL 5-20) 5-20 MG per capsule Take 1 capsule by mouth every morning. Active amLODIPine (NORVASC) 5 mg tablet Take 5 mg by mouth every evening. Active Active Problems Problem Noted Date Diagnosed Date Hematuria, unspecified type 08/17/2024 Malignant neoplasm of prostate 09/24/2016 Social History Tobacco Use Types Packs/Day Years Used Date Smoking Tobacco: Former Cigarettes 0 Q uit: 09/17/1998 Tobacco Cessation:Counseling Given: Not Answered Alcohol Use Standard Drinks/Week Comments Not Currently 0 (1 standard drink = 0.6 oz pur e alcohol) 2-3 GLASSES WINE/WEEK PHQ-2 Answer Date Recorded Depression Risk 0 08/17/2024 Sex and Gender Information Value Date Recorded Sex Assigned at Not on file Legal Sex Male 8:46 AM [facility] Gender Identity Not on file Sexual Orientation Not on file Last Filed Vital Signs Vital Sign Reading Time Taken Comments Blood Pressure 131/56 08/18/2024 4:23 PM [facility] Pulse 83 08/18/2024 4:23 PM [facility] Temperature 37.1 C (98.8 F) 08/18/2024 4:23 PM MST Respiratory Rate 16 08/18/2024 4:23 PM [facility] Oxygen Saturation 97% 08/18/2024 4:23 PM MST Inhaled Oxygen Concentration - - Weight 107 kg (235 lb 14.3 oz) 08/17/2024 10:57 AM [facility] Height 170.2 cm (5' 7) 08/18/2024 5:28 AM [facility] Body Mass Index 36.95 08/17/2024 10:57 AM [facility] Plan of Treatment Health Maintenance Due Date Last Done Comments Adult Wellness Visit 1968 Hepatitis C Screen 1968 DTaP,Tdap,or Td Vaccines (1 - Tdap) 1969 COVID-19 Vaccine ( season) 2025 01/22/2024, 04/11/2023, 03/12/2022, Additional history exists Influenza Vaccine (#1) 2025 , 01/16/2023, 01/26/2022, Additional history exists Pneumococcal Vaccine: 50+ Years Completed 02/11/2019, 05/15/2016, 05/14/2016, Additional history exists Zoster (Shingles) Vaccine Completed 2019, 12/23/2019, 08/11/2019, Additional history exists RSV Vaccine Completed 02/21/2023 Colonoscopy Discontinued 10/10/2023 Colorectal Cancer Screening Discontinued Cologuard Discontinued Fecal Immunohistochemical Test Discontinued HPV VACCINES (No Doses Required) Completed Hepatitis A Vaccine Aged Out No longe r eligible based on patient's age to complete this topic Sigmoidoscopy Discontinued Insurance MEDICARE PART A B [facility] MEDICARE PART A B [facility] MEDICARE PART A B [facility] MEDICARE PART A B [facility] Advance Directives For more information, please contact: [phone] * Full Code (Latest Code Status on File) Date Activated Date Inactivated Comments 08/17/2024 4:59 PM 08/18/2024 7:23 PM Care Teams Choker Setter Relationship Specialty Start Date End Date Lanre Burrell MD [address] [address] PCP - General Internal Medicine 08/16/24
--- OUTSIDE RECORDS SUMMARY | 2025-04-09 10:52 | XMS_ITS | Encounter Summary ---
Author Organization [facility] Address [address] [place] [address] Care Team Providers Care Pediatric Geneticist Name Role Phone Lanre Burrell MD Primary Care Provider [phone] Lanre Burrell MD Primary Care Provider [phone] Encounter Details Date Type Department Care Team (Late st Contact Info) Description 02/20/2017 Ancillary Orders [facility] Nuclear Medicine [address] [place] [address] Junior Ahumada MD [address] [place], [place] [id number] Prostate cancer Social History Tobacco Use Types Packs/Day Years Used Date Smoking Tobacco: Former Cigarettes 0 Q uit: 09/17/1998 Alcohol Use Standard Drinks/Week Comments Yes 0 (1 standard drink = 0.6 oz pur e alcohol) 2-3 GLASSES WINE/WEEK Sex and Gender Information Value Date Recorded Sex Assigned at Not on file Legal Sex Male 8:46 AM [facility] Gender Identity Not on file Sexual Orientation Not on file documented as of this encounter Plan of Treatment Not on file documented as of this encounter Visit Diagnoses Diagnosis Prostate cancer Malignant neoplasm of prostate documented in this encounter Care Teams Pediatric Geneticist Relationship Specialty Start Date End Date Lanre Burrell MD PCP - General Internal Medicine 09/24/16 08/15/24 Lanre Burrell MD [address] [place] [address] PCP - General Internal Medicine 08/16/24 documented as of this encounter
--- OUTSIDE RECORDS SUMMARY | 2025-04-09 10:53 | XMS_ITS | Data Portability ---
Author Organization ID - [employer], [facility] [address] [facility] [address] [place] [address] Care Team Providers Care Door Core Assembler Name Role Phone ARLETH BURRELL Primary Care Provider [phone] ARLETH BURRELL Referring Provider ALCIRA ZABALA Urologist Assessment Encounter Date Assessment Date Assessment LastModified by Organization Details LastModified Time 06/17/2022 06/17/2022 See below Follow-up: Annually Lab ordered [email or web address] Not available 06/17/2022 10:42:33 08/21/2022 08/21/2022 Minimum time(minutes) on date of service: 30 -prep and reviewed chart. [email or web address] Not available 08/21/2022 18:11:56 11/14/2022 11/14/2022 Assessment: [...] significant symptoms, consider medication, repeat injection, referral [email or web address] Not available 11/14/2022 13:22:00 05/20/2023 05/20/2023 1. Continue current medications as tolerated. Medication renewals provided. 2. Obtain labs when fasting. 3. Follow up 3 months OTTONIEL [email or web address] Not available 05/20/2023 12:04:05 05/25/2024 05/25/2024 See below Follow up annually or sooner as needed. [email or web address] Not available 05/25/2024 12:55:50 Plan of Treatment Reminders Order Date Submit Date Provider Last Modified By Organization Details Last Modified Time Details Appointments None recorded. Lab lipid panel, serum 2024 025 SUE [facility], [address], [address], [place], [address], 5 10:11:22 CMP, serum or plasma 2024 025 SUE [facility], [address], [address], [place], [address], 5 10:11:20 vitamin B12 + folate, serum or blood 2024 025 [email or web address] [facility], [address], [address], [place], [address], 5 10:14:40 CBC w/ auto diff 2024 025 SUE [facility], [address], [address], [place], [address], 5 10:11:21 TSH, serum, reflex free T4 2024 025 [email or web address] [facility], [address], [address], [place], [address], 5 10:14:40 HbA1c (hemoglobin A1c), blood 2024 025 SUE [facility], [address], [address], [place], [address], 5 10:11:23 urinalysis complete, reflex culture 2024 025 SUE [facility], [address], [address], [place], [address], 5 10:11:21 prostate specific Ag, QN, serum or plasma 2024 025 [email or web address] lobato [facility], [address], [address], [place], [address], 5 10:14:40 HbA1c (hemoglobin A1c), blood 2023 024 SUE [facility], [address], [address], [place], [address], 4 03:18:29 urinalysis complete, reflex culture 2023 024 SUE [facility], [address], [address], [place], [address], 4 03:18:28 prostate specific Ag, QN, serum or plasma 2023 024 [email or web address] lobato [facility], [address], [address], [place], [address], 4 12:00:10 lipid panel, serum 2023 024 [facility], [address], [address], [place], [address], 4 03:18:28 CMP, serum or plasma 2023 024 [facility], [address], [address], [place], [address], 4 03:18:26 vitamin B12 + folate, serum or blood 2023 024 [facility], [address], [address], [place], [address], 4 03:18:29 CBC w/ auto diff 01/09/ 2024 01/09/2 024 SUE [facility], [address], [address], [place], [address], 4 03:18:27 TSH, serum, reflex free T4 2023 024 [facility]12 [facility], [address], [address], [place], [address], 4 12:00:10 HbA1c (hemoglobin A1c), blood 2022 023 SUE [facility], [address], [address], [place], [address], 3 02:08:49 lipid panel, serum 2022 023 S[facility], [address], [address], [place], [address], 3 02:08:48 CMP, serum or plasma 2022 023 [facility], [address], [address], [place], [address], 3 02:08:47 vitamin B12 + folate, serum or blood 2022 023 [facility], [address], [address], [place], [address], 3 02:08:49 CBC w/ auto diff 2022 023 [facility], [address], [address], [place], [address], 3 02:08:47 TSH, serum, reflex free T4 2022 023 [place] [address] [facility], [address], [address], [place], [address], 3 13:50:49 urinalysis complete, reflex culture 2022 023 [facility], [address], [address], [place], [address], 3 02:08:48 prostate specific Ag, QN, serum or plasma 2022 023 [email or web address] [facility], [address], [address], [place], [address], 3 13:50:49 Referral otolaryngol ogist referral [address] [facility], [address], [address], [place], [address], 5 14:17:03 physical therapist referral 2022 023 [facility], [address], [place], [address], 3 13:45:27 Procedures None recorded. Surgeries None recorded. Imaging XR, cervical spine, 4 or 5 view 2022 023 [facility] [place], [address], [address], [place], [address], 3 16:36:25 XR, chest, 2 view 2022 023 [facility] [place], [address], [address], [place], [address], 3 20:48:41 Medication Orders amiodarone 200 mg tablet 2024 025 [email or web address] Not available 5 17:27:50 atorvastati n 40 mg tablet 2024 025 [email or web address] 43 Not available 5 17:27:50 fluticasone propionate 50 mcg/actuati on nasal spray,suspe nsion 2024 025 [facility] [id number], [address], [place], [address], 5 11:38:31 triamterene 37.5 mg-hydrochl orothiazide 25 mg tablet 2024 025 [email or web address] 43 Not available 5 17:27:51 amlodipine 5 mg-benazepr il 20 mg capsule 2024 025 [email or web address] 43 Not available 5 17:27:51 amlodipine 5 mg tablet 2024 025 [email or web address] 43 Not available 5 17:27:51 atorvastati n 40 mg tablet 2023 024 [email or web address] 43 Not available 4 17:55:08 amlodipine 5 mg-benazepr il 20 mg capsule 2023 024 [email or web address] 43 Not available 4 17:55:09 triamterene 37.5 mg-hydrochl orothiazide 25 mg tablet 2023 024 [email or web address] 43 Not available 4 17:55:09 atenolol 50 mg tablet 2023 024 Not available 5 12:42:53 Medrol (Moncho) 4 mg tablets in a dose pack 2022 023 [facility] [id number], [address], [place], [address], 3 18:06:05 atorvastati n 40 mg tablet [address] [facility] [id number], [address], [place], [address], 3 17:02:06 amlodipine 5 mg-benazepr il 20 mg capsule [address] [facility] [facility] [id number], [address], [place], [address], 3 17:02:06 atenolol 50 mg tablet 2022 023 [email or web address] [facility] [id number], [address], [place], [address], 5 12:42:53 triamterene 37.5 mg-hydrochl orothiazide 25 mg tablet [address] [facility] [id number], [address], [place], [address], 3 17:02:06 Patient TargetsNo targets recorded. Patient Instructions Encounter Date Encounter Id Patient Instructions Last Modified By Organization Details Last Modified Time 06/17/[id number] medical record request* - Records requested: EKG and last office visit note --- Continuity of Care request for Records. This is a CRITICAL for CONTINUITY of CARE for PRIMARY CARE please forward requests AMANDA. ----- susan Not available 09/19/2022 11:52:46 Clinical Action Plan: [...] maintenance outline Vaccination recommendations: Influenza Vaccine: Annually Pneumovax Vaccine: 1 shot with PCV20 at age 65 (CDC recommendation): Shingrix: Varicella/Shingle s 2 shot series within 6 months of each other at age 50: Cancer Screening Recommendations: Colorectal Screening: : TEST TYPE : FREQUENCY : STATUS Breast Cancer Screening: Recommendation: : FREQUENCY : STATUS PSA Prostate Cancer Testing: Recommendation: : FREQUENCY : STATUS Screening for Osteoporosis - High risk post menopausal women or women age 65y+ : FREQUENCY : STATUS General Health Recommendations: 1. Yearly Medicare Wellness Evaluation. 2. Bring medications or a medication list to every medical visit. 3. Work towards routine exercise as tolerated 5 times each week. [email or web address] Not available 06/17/2022 09:54:03 08/21/2022 [id number] learning about obesity [email or web address] Not available 08/21/2022 18:06:00 body mass index: care instructions [email or web address] Not available 08/21/2022 18:06:01 05/20/2023 [id number] learning about obesity Not available 05/20/2023 12:28:47 [...] 50%. Time spent counselling was 20 min. [email or web address] Not available 05/15/2023 14:57:54 05/25/2024 [id number] learning about obesity Not available 05/25/2024 16:02:16 body mass index: care instructions Not available 05/25/2024 16:02:16 5 to 10 year preventative care outline Vaccination recommendations: Influenza prevention: Influenza vaccine recommended annually Pneumonia Prevention: One time vaccination booster with PCV20 age 65 Shingles prevention: 2 shot Shingrix vaccine series age 50 Cancer Screening Recommendations: MEN and WOMEN: Colorectal cancer screening starting at age 45 - Cologuard Home DNA Kit every 3 years - Colonoscopy every 10 years (Colon polyps/cancer surveillance are not part of routine screening) WOMEN: Breast Cancer Screening - Starting age 40 (USPSTF recommendations) - Every 1-2 years depending on risk MEN: PSA Prostate Cancer Screening - every 1-2 years starting at age 50 Osteoporosis Screening WOMEN: - High risk post menopausal women or - Single initial screening at age 65 (Osteoporosis/ost eopenia follow up surveillance is not part of routine screening) General Health Recommendations: 1. Yearly Medicare Wellness Evaluation. 2. Exercise: work up to 30 minutes 5 days a weeks as tolerated depending on your medical conditions. 3. Bring medications or a medication list to every medical visit. 4. Make sure to review 90 day refill opportunities with you medical provider to save time, money, and improve your care. 5. Make sure you REFILL YOUR MEDICATIONS TIMELY. Advanced Care Planning Reminder Please keep Advanced Care Directives & Planning up to day and please provide the medical practice with most current version. To get an updated packet go to: www.[facility].gov/krish ors/rftg-thui-czr nning or call or to have a packet mailed to you. [email or web address] Not available 05/25/2024 11:56:13 Clinical Action Plan: Patient understands and agrees [...] 50%. Time spent counselling was 20 min. Home Safety Review 1. Gabino hazard: improve floor transition safety by minimize room clutter and be careful of gabino transitions especially tile to carpet which often cause falls. 2. Appliances: get into a routine habit of checking appliances, especially gas, to make sure they are turned off. 3. Smoke/CO detector: Get into the routine of checking your smoke/CO detectors to make sure they are functioning. Please make sure to install them if you do not have any. 4. Seat belts: use them every time you are in a car. 5. Safe Sex: If sexually active, make sure to practice safe sex to prevent STD transmission. 6. Bathroom/shower safety: this can be improved by adding grab bars, raised toilet seats, and shower chairs to prevent falls. 7. Home lighting: improving lighting in the home can lower fall/injury risk. 8. Protective head gear: use if biking or driving motorcycle to prevent life threatening head injuries. 9. Stairs safety: take you time and use the guard rails to prevent falling. 10. Skin cancer and sun burn protection: use sunblock with SPF-30 or higher routinely if going outside. 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 Referral fo r Dysfunction of right eustachian tube Eval and treat Referring Physician: Arleth Burrell, Internal Medicine, Encounter Date: 05/25/2024 Results Created Date Observation Date Name Description Value Unit Range Abnormal Flag Note LastModifiedBy Organization Detail LastModifiedTime 06/18/1906/19/2022 CBC WITH DIFFE RENTI AL/PL ATELE T WBC 5.6 x10e3 /uL 3.4-10 .8 Not Available [facility] ([facility]) [address] [place], [address], 06/20/2022 02:08:46 06/18/1906/19/2022 CBC WITH DIFFE RENTI AL/PL ATELE T RBC 5.09 x10e6 /uL 4.14-5 .80 Not Available [facility] ([facility]) [address] [facility], [place], [address], 06/20/2022 02:08:46 06/18/19 23 06/19/2022 CBC WITH DIFFE RENTI AL/PL ATELE T hemoglobin 15.9 g/dL 13.0-1 7.7 Not Available [facility] ([facility]) [address] [facility], [place], [address], 06/20/2022 02:08:46 06/18/19 23 06/19/2022 CBC WITH DIFFE RENTI AL/PL ATELE T hematocrit 48.2 % 37.5-5 1.0 Not Available [facility] ([facility]) [address] [place], [address], 06/20/2022 02:08:46 06/18/19 23 06/19/2022 CBC WITH DIFFE RENTI AL/PL ATELE T MCV 95 fL 79-97 Not Available [facility] ([facility]) [address] [place], [address], 06/20/2022 02:08:46 06/18/19 23 06/19/2022 CBC WITH DIFFE RENTI AL/PL ATELE T MCH 31.2 pg 26.6-3 3.0 Not Available [facility] ([facility]) [address] [place], [address], 06/20/2022 02:08:46 06/18/19 23 06/19/2022 CBC WITH DIFFE RENTI AL/PL ATELE T MCHC 33.0 g/dL 31.5-3 5.7 Not Available [facility] ([facility]) [address] [place], [address], 06/20/2022 02:08:46 06/18/19 23 06/19/2022 CBC WITH DIFFE RENTI AL/PL ATELE T RDW 13.3 % 11.6-1 5.4 Not Available [facility] ([facility]) [address] [place], [address], 06/20/2022 02:08:46 06/18/19 23 06/19/2022 CBC WITH DIFFE RENTI AL/PL ATELE T platelets 304 x10e3 /uL 150-45 0 Not Available [facility] ([facility]) [address] [facility], [place], [address], 06/20/2022 02:08:46 06/18/19 23 06/19/2022 CBC WITH DIFFE RENTI AL/PL ATELE T neutrophils 61 % not estab. Not Available [facility] ([facility]) [address] [facility], [place], [address], 06/20/2022 02:08:46 06/18/19 23 06/19/2022 CBC WITH DIFFE RENTI AL/PL ATELE T lymphs 27 % not estab. Not Available [facility] ([facility]) [address] [facility], [place], [address], 06/20/2022 02:08:46 06/18/19 23 06/19/2022 CBC WITH DIFFE RENTI AL/PL ATELE T monocytes 10 % not estab. Not Available [facility] ([facility]) [address] [facility], [place], [address], 06/20/2022 02:08:46 06/18/19 23 06/19/2022 CBC WITH DIFFE RENTI AL/PL ATELE T eos 1 % not estab. Not Available [facility] ([facility]) [address] [facility], [place], [address], 06/20/2022 02:08:46 06/18/19 23 06/19/2022 CBC WITH DIFFE RENTI AL/PL ATELE T basos 1 % not estab. Not Available [facility] ([facility]) [address] [facility], [place], [address], 06/20/2022 02:08:46 06/18/19 23 06/19/2022 CBC WITH DIFFE RENTI AL/PL ATELE T immature cells COMPOSING ROOM SUPERVISOR Not Available [facility] ([facility]) [address] [facility], [place], [address], 06/20/2022 02:08:46 06/18/19 23 06/19/2022 CBC WITH DIFFE RENTI AL/PL ATELE T neutrophils (absolute) 3.3 x10e3 /uL 1.4-7. 0 Not Available [facility] ([facility]) [address] [facility], [place], [address], 06/20/2022 02:08:46 06/18/19 23 06/19/2022 CBC WITH DIFFE RENTI AL/PL ATELE T lymphs (absolute) 1.5 x10e3 /uL 0.7-3. 1 Not Available [facility] ([facility]) [address] [facility], [place], [address], 06/20/2022 02:08:46 06/18/19 23 06/19/2022 CBC WITH DIFFE RENTI AL/PL ATELE T monocytes(ab solute) 0.6 x10e3 /uL 0.1-0. 9 Not Available [facility] ([facility]) [address] [place], [address], 06/20/2022 02:08:46 06/18/19 23 06/19/2022 CBC WITH DIFFE RENTI AL/PL ATELE T eos (absolute) 0.1 x10e3 /uL 0.0-0. 4 Not Available [facility] ([facility]) [address] [facility], [place], [address], 06/20/2022 02:08:46 06/18/19 23 06/19/2022 CBC WITH DIFFE RENTI AL/PL ATELE T baso (absolute) 0.0 x10e3 /uL 0.0-0. 2 Not Available [facility] ([facility]) [address] [place], [address], 06/20/2022 02:08:46 06/18/19 23 06/19/2022 CBC WITH DIFFE RENTI AL/PL ATELE T immature granulocytes 0 % not estab. Not Available [facility] ([facility]) [address] [facility], [place], [address], 06/20/2022 02:08:46 06/18/19 23 06/19/2022 CBC WITH DIFFE RENTI AL/PL ATELE T immature grans (abs) 0.0 x10e3 /uL 0.0-0. 1 Not Available [facility] ([facility]) [address] [facility], [place], [address], 06/20/2022 02:08:46 06/18/19 23 06/19/2022 CBC WITH DIFFE RENTI AL/PL ATELE T NRBC COMPOSING ROOM SUPERVISOR Not Available [facility] ([facility]) [address] [facility], [place], [address], 06/20/2022 02:08:46 06/18/19 23 06/19/2022 CBC WITH DIFFE RENTI AL/PL ATELE T hematology comments: COMPOSING ROOM SUPERVISOR Not Available [facility] ([facility]) [address] [facility], [place], [address], 06/20/2022 02:08:46 06/18/19 23 06/19/2022 COMP. METAB OLIC PANEL (14) glucose 104 mg/dL 70-99 above high normal Not Available [facility] ([facility]) [address] [facility], [place], [address], 06/20/2022 02:08:47 06/18/19 23 06/19/2022 COMP. METAB OLIC PANEL (14) BUN 13 mg/dL 8-27 Not Available [facility] ([facility]) [address] [facility], [place], [address], 06/20/2022 02:08:47 06/18/19 23 06/19/2022 COMP. METAB OLIC PANEL (14) creatinine 1.18 mg/dL 0.76-1 .27 Not Available [facility] ([facility]) [address] [facility], [place], [address], 06/20/2022 02:08:47 06/18/19 23 06/19/2022 COMP. METAB OLIC PANEL (14) eGFR 66 mL/mi n/1.7 3 >59 Not Available [facility] ([facility]) [address] [facility], [place], [address], 06/20/2022 02:08:47 06/18/19 23 06/19/2022 COMP. METAB OLIC PANEL (14) BUN/creatini ne ratio 11 10-24 Not Available [facility] ([facility]) [address] [facility], [place], [address], 06/20/2022 02:08:47 06/18/19 23 06/19/2022 COMP. METAB OLIC PANEL (14) sodium 142 mmol/ L 134-14 4 Not Available [facility] ([facility]) [address] [facility], [place], [address], 06/20/2022 02:08:47 06/18/19 23 06/19/2022 COMP. METAB OLIC PANEL (14) potassium 4.6 mmol/ L 3.5-5. 2 Not Available [facility] ([facility]) [address] [facility], [place], [address], 06/20/2022 02:08:47 06/18/19 23 06/19/2022 COMP. METAB OLIC PANEL (14) chloride 103 mmol/ L 96-106 Not Available [facility] ([facility]) [address] [facility] [place], [address], 06/20/2022 02:08:47 06/18/19 23 06/19/2022 COMP. METAB OLIC PANEL (14) carbon dioxide, total 27 mmol/ L 20-29 Not Available [facility] ([facility]) [address] [facility], [place], [address], 06/20/2022 02:08:47 06/18/19 23 06/19/2022 COMP. METAB OLIC PANEL (14) calcium 9.4 mg/dL 8.6-10 .2 Not Available [facility] ([facility]) [address] [place], [address], 06/20/2022 02:08:47 06/18/19 23 06/19/2022 COMP. METAB OLIC PANEL (14) protein, total 6.5 g/dL 6.0-8. 5 Not Available [facility] ([facility]) [address] [place], [address], 06/20/2022 02:08:47 06/18/19 23 06/19/2022 COMP. METAB OLIC PANEL (14) albumin 4.4 g/dL 3.7-4. 7 Not Available [facility] ([facility]) [address] [place], [address], 06/20/2022 02:08:47 06/18/19 23 06/19/2022 COMP. METAB OLIC PANEL (14) globulin, total 2.1 g/dL 1.5-4. 5 Not Available [facility] ([facility]) [address] [place], [address], 06/20/2022 02:08:47 06/18/19 23 06/19/2022 COMP. METAB OLIC PANEL (14) A/G ratio 2.1 1.2-2. 2 Not Available [facility] ([facility]) [address] [place], [address], 06/20/2022 02:08:47 06/18/19 23 06/19/2022 COMP. METAB OLIC PANEL (14) bilirubin, total 1.8 mg/dL 0.0-1. 2 above high normal Not Available [facility] ([facility]) [address] [place], [address], 06/20/2022 02:08:47 06/18/19 23 06/19/2022 COMP. METAB OLIC PANEL (14) alkaline phosphatase 72 IU/L 44-121 Not Available [facility] ([facility]) [address] [facility], [place], [address], 06/20/2022 02:08:47 06/18/19 23 06/19/2022 COMP. METAB OLIC PANEL (14) AST (SGOT) 17 IU/L 0-40 Not Available [facility] ([facility]) [address] [facility], [place], [address], 06/20/2022 02:08:47 06/18/19 23 06/19/2022 COMP. METAB OLIC PANEL (14) ALT (SGPT) 16 IU/L 0-44 Not Available [facility] ([facility]) [address] [facility], [place], [address], 06/20/2022 02:08:47 06/18/19 23 06/20/2022 UA WITH CULTU RE REFLE X specific gravity 1.008 1.005- 1.030 Not Available [facility] ([facility]) [address] [facility], [place], [address], 06/20/2022 02:08:48 06/18/19 23 06/20/2022 UA WITH CULTU RE REFLE X pH 6.5 5.0-7. 5 Not Available [facility] ([facility]) [address] [facility], [place], [address], 06/20/2022 02:08:48 06/18/19 23 06/20/2022 UA WITH CULTU RE REFLE X urine-color Yellow yellow Not Available [facility] ([facility]) [address] [facility], [place], [address], 06/20/2022 02:08:48 06/18/19 23 06/20/2022 UA WITH CULTU RE REFLE X appearance Clear clear Not Available [facility] ([facility]) [address] [facility], [place], [address], 06/20/2022 02:08:48 06/18/19 23 06/20/2022 UA WITH CULTU RE REFLE X WBC esterase Negati ve negati ve Not Available [facility] ([facility]) [address] [facility], [place], [address], 06/20/2022 02:08:48 06/18/19 23 06/20/2022 UA WITH CULTU RE REFLE X protein 1+ negati ve/tra ce abnormal Not Available [facility] ([facility]) [address] [facility], [place], [address], 06/20/2022 02:08:48 06/18/19 23 06/20/2022 UA WITH CULTU RE REFLE X glucose Negati ve negati ve Not Available [facility] ([facility]) [address] [facility], [place], [address], 06/20/2022 02:08:48 06/18/19 23 06/20/2022 UA WITH CULTU RE REFLE X ketones Negati ve negati ve Not Available [facility] ([facility]) [address] [facility], [place], [address], 06/20/2022 02:08:48 06/18/19 23 06/20/2022 UA WITH CULTU RE REFLE X occult blood Negati ve negati ve Not Available [facility] ([facility]) [address] [place], [address], 06/20/2022 02:08:48 06/18/19 23 06/20/2022 UA WITH CULTU RE REFLE X bilirubin Negati ve negati ve Not Available [facility] ([facility]) [address] [place], [address], 06/20/2022 02:08:48 06/18/19 23 06/20/2022 UA WITH CULTU RE REFLE X urobilinogen ,semi-qn 0.2 mg/dL 0.2-1. 0 Not Available [facility] ([facility]) [address] [facility], [place], [address], 06/20/2022 02:08:48 06/18/19 23 06/20/2022 UA WITH CULTU RE REFLE X nitrite, urine Negati ve negati ve Not Available [facility] ([facility]) [address] [facility], [place], [address], 06/20/2022 02:08:48 06/18/19 23 06/20/2022 UA WITH CULTU RE REFLE X microscopic examination See below: Micro scopi c was indic ated and was perfo rmed. Not Available [facility] ([facility]) [address] [facility], [place], [address], 06/20/2022 02:08:48 06/18/19 23 06/20/2022 UA WITH CULTU RE REFLE X WBC None seen /hpf 0 - 5 Not Available [facility] ([facility]) [address] [facility], [place], [address], 06/20/2022 02:08:48 06/18/19 23 06/20/2022 UA WITH CULTU RE REFLE X RBC None seen /hpf 0 - 2 Not Available [facility] ([facility]) [address] [place], [address], 06/20/2022 02:08:48 06/18/19 23 06/20/2022 UA WITH CULTU RE REFLE X epithelial cells (non renal) None seen /hpf 0 - 10 Not Available [facility] ([facility]) [address] [place], [address], 06/20/2022 02:08:48 06/18/19 23 06/20/2022 UA WITH CULTU RE REFLE X epithelial cells (renal) COMPOSING ROOM SUPERVISOR Not Available [facility] ([facility]) [address] [place], [address], 06/20/2022 02:08:48 06/18/19 23 06/20/2022 UA WITH CULTU RE REFLE X casts None seen /lpf none seen Not Available [facility] ([facility]) [address], [place], [address], 06/20/2022 02:08:48 06/18/19 23 06/20/2022 UA WITH CULTU RE REFLE X cast type COMPOSING ROOM SUPERVISOR Not Available [facility] ([facility]) [address], [place], [address], 06/20/2022 02:08:48 06/18/19 23 06/20/2022 UA WITH CULTU RE REFLE X crystals COMPOSING ROOM SUPERVISOR Not Available [facility] ([facility]) [address], [place], [address], 06/20/2022 02:08:48 06/18/19 23 06/20/2022 UA WITH CULTU RE REFLE X crystal type COMPOSING ROOM SUPERVISOR Not Available [facility] ([facility]) [address], [place], [address], 06/20/2022 02:08:48 06/18/19 23 06/20/2022 UA WITH CULTU RE REFLE X mucus threads COMPOSING ROOM SUPERVISOR Not Available [facility] ([facility]) [address], [place], [address], 06/20/2022 02:08:48 06/18/19 23 06/20/2022 UA WITH CULTU RE REFLE X bacteria None seen none seen/f ew Not Available [facility] ([facility]) [address], [place], [address], 06/20/2022 02:08:48 06/18/19 23 06/20/2022 UA WITH CULTU RE REFLE X yeast COMPOSING ROOM SUPERVISOR Not Available [facility] ([facility]) [address], [place], [address], 06/20/2022 02:08:48 06/18/19 23 06/20/2022 UA WITH CULTU RE REFLE X trichomonas COMPOSING ROOM SUPERVISOR Not Available [facility] ([facility]) [address] [place], [address], 06/20/2022 02:08:48 06/18/19 23 06/20/2022 UA WITH CULTU RE REFLE X comment COMPOSING ROOM SUPERVISOR Not Available [facility] ([facility]) [address] [place], [address], 06/20/2022 02:08:48 06/18/19 23 06/20/2022 UA WITH CULTU RE REFLE X urinalysis reflex Commen t This speci men will not refle x to a Urine Cultu re. Not Available [facility] ([facility]) [address] [place], [address], 06/20/2022 02:08:48 06/18/19 23 06/19/2022 LIPID PANEL cholesterol, total 180 mg/dL 100-19 9 Not Available [facility] ([facility]) [address] [place], [address], 06/20/2022 02:08:48 06/18/19 23 06/19/2022 LIPID PANEL triglyceride s 169 mg/dL 0-149 above high normal Not Available [facility] ([facility]) [address] [place], [address], 06/20/2022 02:08:48 06/18/19 23 06/19/2022 LIPID PANEL HDL cholesterol 56 mg/dL >39 Not Available [facility] ([facility]) [address] [place], [address], 06/20/2022 02:08:48 06/18/19 23 06/19/2022 LIPID PANEL VLDL cholesterol dustin 29 mg/dL 5-40 Not Available [facility] ([facility]) [address] [facility] [place], [address], 06/20/2022 02:08:48 06/18/19 23 06/19/2022 LIPID PANEL LDL chol calc ([facility]) 95 mg/dL 0-99 Not Available [facility] ([facility]) [address] [facility], [place], [address], 06/20/2022 02:08:48 06/18/19 23 06/19/2022 LIPID PANEL comment: COMPOSING ROOM SUPERVISOR Not Available [facility] ([facility]) [address] [facility], [place], [address], 06/20/2022 02:08:48 06/18/19 23 06/19/2022 VITAM IN B12 AND FOLAT E vitamin B12 474 pg/mL 232-12 45 Not Available [facility] ([facility]) [address] [facility], [place], [address], 06/20/2022 02:08:49 06/18/1906/19/2022 VITAM IN B12 AND FOLAT E folate (folic acid), serum 14.9 NG/mL >3.0 A serum folat e zackery ntrat ion of less than 3.1 ng/mL is consi dered to repre sent clini dustin defic iency . Not Available [facility] ([facility]) [address] [facility], [place], [address], 06/20/2022 02:08:49 06/18/1906/19/2022 HEMOG LOBIN A1C hemoglobin A1C 6.2 % 4.8-5. 6 above high normal Predi abete s: 5.7 - 6.4 Diabe [place]: >6.4 Glyce reginald contr ol for adult s with diabe [place]: <7.0 Not Available [facility] ([facility]) [address] [facility], [place], [address], 06/20/2022 02:08:49 06/18/19 23 06/19/2022 PROST ATE-S [...] t be inter prete d as absol [place] [employer] evide nce of the prese nce or absen ce of [facility]olas rodriguez se. Not Available [facility] ([facility]) [address] [place], [address], 06/20/2022 02:08:50 06/18/1906/19/2022 TSH REFLE X TO T4F TSH 1.590 uIU/m L 0.450- 4.500 Not Available [facility] ([facility]) [address] [place], [address], 06/20/2022 02:08:50 05/23/19 24 05/24/2023 CMP14 +EGFR glucose 111 mg/dL 70-99 above high normal Not Available [facility] ([facility]) [address] [place], [address], 05/26/2023 03:18:26 05/23/19 24 05/24/2023 CMP14 +EGFR BUN 19 mg/dL 8-27 Not Available [facility] ([facility]) [address] [place], [address], 05/26/2023 03:18:26 05/23/19 24 05/24/2023 CMP14 +EGFR creatinine 1.28 mg/dL 0.76-1 .27 above high normal Not Available [facility] ([facility]) [address] [facility], [place], [address], 05/26/2023 03:18:26 05/23/19 24 05/24/2023 CMP14 +EGFR eGFR 59 mL/mi n/1.7 3 >59 below low normal Not Available [facility] ([facility]) [address] [facility], [place], [address], 05/26/2023 03:18:26 05/23/19 24 05/24/2023 CMP14 +EGFR BUN/creatini ne ratio 03-04 Not Available [facility] ([facility]) [address] [facility], [place], [address], 05/26/2023 03:18:26 05/23/19 24 05/24/2023 CMP14 +EGFR sodium 143 mmol/ L 134-14 4 Not Available [facility] ([facility]) [address] [facility], [place], [address], 05/26/2023 03:18:26 05/23/19 24 05/24/2023 CMP14 +EGFR potassium 4.4 mmol/ L 3.5-5. 2 Not Available [facility] ([facility]) [address] [facility], [place], [address], 05/26/2023 03:18:26 05/23/19 24 05/24/2023 CMP14 +EGFR chloride 104 mmol/ L 96-106 Not Available [facility] ([facility]) [address] [facility], [place], [address], 05/26/2023 03:18:26 05/23/19 24 05/24/2023 CMP14 +EGFR carbon dioxide, total 25 mmol/ L 20-29 Not Available [facility] ([facility]) [address] [facility], [place], [address], 05/26/2023 03:18:26 05/23/19 24 05/24/2023 CMP14 +EGFR calcium 9.9 mg/dL 8.6-10 .2 Not Available [facility] ([facility]) [address] [facility] [place], [address], 05/26/2023 03:18:26 05/23/19 24 05/24/2023 CMP14 +EGFR protein, total 6.8 g/dL 6.0-8. 5 Not Available [facility] ([facility]) [address] [facility] [place], [address], 05/26/2023 03:18:26 05/23/19 24 05/24/2023 CMP14 +EGFR albumin 4.6 g/dL 3.8-4. 8 Not Available [facility] ([facility]) [address] [facility] [place], [address], 05/26/2023 03:18:26 05/23/19 24 05/24/2023 CMP14 +EGFR globulin, total 2.2 g/dL 1.5-4. 5 Not Available [facility] ([facility]) [address] [facility] [place], [address], 05/26/2023 03:18:26 05/23/1905/24/2023 CMP14 +EGFR A/G ratio 2.1 1.2-2. 2 Not Available [facility] ([facility]) [address] [facility] [place], [address], 05/26/2023 03:18:26 05/23/19 24 05/24/2023 CMP14 +EGFR bilirubin, total 1.8 mg/dL 0.0-1. 2 above high normal Not Available [facility] ([facility]) [address] [facility] [place], [address], 05/26/2023 03:18:26 05/23/19 24 05/24/2023 CMP14 +EGFR alkaline phosphatase 82 IU/L 44-121 Not Available [facility] ([facility]) [address] [facility] [place], [address], 05/26/2023 03:18:26 05/23/19 24 05/24/2023 CMP14 +EGFR AST (SGOT) 17 IU/L 0-40 Not Available [facility] ([facility]) [address] [facility], [place], [address], 05/26/2023 03:18:26 05/23/19 24 05/24/2023 CMP14 +EGFR ALT (SGPT) 16 IU/L 0-44 Not Available [facility] ([facility]) [address] [facility], [place], [address], 05/26/2023 03:18:26 05/23/19 24 05/24/2023 CBC WITH DIFFE RENTI AL/PL ATELE T WBC 5.8 x10e3 /uL 3.4-10 .8 Not Available [facility] ([facility]) [address] [facility], [place], [address], 05/26/2023 03:18:27 05/23/19 24 05/24/2023 CBC WITH DIFFE RENTI AL/PL ATELE T RBC 4.88 x10e6 /uL 4.14-5 .80 Not Available [facility] ([facility]) [address] [facility], [place], [address], 05/26/2023 03:18:27 05/23/19 24 05/24/2023 CBC WITH DIFFE RENTI AL/PL ATELE T hemoglobin 15.5 g/dL 13.0-1 7.7 Not Available [facility] ([facility]) [address] [place], [address], 05/26/2023 03:18:27 05/23/19 24 05/24/2023 CBC WITH DIFFE RENTI AL/PL ATELE T hematocrit 46.9 % 37.5-5 1.0 Not Available [facility] ([facility]) [address] [place], [address], 05/26/2023 03:18:27 01/12/20 24 05/24/2023 CBC WITH DIFFE RENTI AL/PL ATELE T MCV 96 fL 79-97 Not Available [facility] ([facility]) [address] [facility], [place], [address], 05/26/2023 03:18:27 05/23/19 24 05/24/2023 CBC WITH DIFFE RENTI AL/PL ATELE T MCH 31.8 pg 26.6-3 3.0 Not Available [facility] ([facility]) [address] [facility], [place], [address], 05/26/2023 03:18:27 05/23/19 24 05/24/2023 CBC WITH DIFFE RENTI AL/PL ATELE T MCHC 33.0 g/dL 31.5-3 5.7 Not Available [facility] ([facility]) [address] [facility], [place], [address], 05/26/2023 03:18:27 05/23/19 24 05/24/2023 CBC WITH DIFFE RENTI AL/PL ATELE T RDW 13.8 % 11.6-1 5.4 Not Available [facility] ([facility]) [address] [facility], [place], [address], 05/26/2023 03:18:27 05/23/19 24 05/24/2023 CBC WITH DIFFE RENTI AL/PL ATELE T platelets 275 x10e3 /uL 150-45 0 Not Available [facility] ([facility]) [address] [facility], [place], [address], 05/26/2023 03:18:27 05/23/19 24 05/24/2023 CBC WITH DIFFE RENTI AL/PL ATELE T neutrophils 65 % not estab. Not Available [facility] ([facility]) [address] [facility], [place], [address], 05/26/2023 03:18:27 05/23/19 24 05/24/2023 CBC WITH DIFFE RENTI AL/PL ATELE T lymphs 22 % not estab. Not Available [facility] ([facility]) [address] [facility], [place], [address], 05/26/2023 03:18:27 05/23/19 24 05/24/2023 CBC WITH DIFFE RENTI AL/PL ATELE T monocytes 11 % not estab. Not Available [facility] ([facility]) [address] [facility], [place], [address], 05/26/2023 03:18:27 05/23/19 24 05/24/2023 CBC WITH DIFFE RENTI AL/PL ATELE T eos 1 % not estab. Not Available [facility] ([facility]) [address] [facility], [place], [address], 05/26/2023 03:18:27 05/23/19 24 05/24/2023 CBC WITH DIFFE RENTI AL/PL ATELE T basos 1 % not estab. Not Available [facility] ([facility]) [address] [place], [address], 05/26/2023 03:18:27 05/23/19 24 05/24/2023 CBC WITH DIFFE RENTI AL/PL ATELE T immature cells COMPOSING ROOM SUPERVISOR Not Available [facility] ([facility]) [address] [place], [address], 05/26/2023 03:18:27 05/23/19 24 05/24/2023 CBC WITH DIFFE RENTI AL/PL ATELE T neutrophils (absolute) 3.7 x10e3 /uL 1.4-7. 0 Not Available [facility] ([facility]) [address] [place], [address], 05/26/2023 03:18:27 05/23/19 24 05/24/2023 CBC WITH DIFFE RENTI AL/PL ATELE T lymphs (absolute) 1.3 x10e3 /uL 0.7-3. 1 Not Available [facility] ([facility]) [address] [facility], [place], [address], 05/26/2023 03:18:27 05/23/19 24 05/24/2023 CBC WITH DIFFE RENTI AL/PL ATELE T monocytes(ab solute) 0.7 x10e3 /uL 0.1-0. 9 Not Available [facility] ([facility]) [address] [facility], [place], [address], 05/26/2023 03:18:27 05/23/19 24 05/24/2023 CBC WITH DIFFE RENTI AL/PL ATELE T eos (absolute) 0.1 x10e3 /uL 0.0-0. 4 Not Available [facility] ([facility]) [address] [facility], [place], [address], 05/26/2023 03:18:27 05/23/19 24 05/24/2023 CBC WITH DIFFE RENTI AL/PL ATELE T baso (absolute) 0.1 x10e3 /uL 0.0-0. 2 Not Available [facility] ([facility]) [address] [facility], [place], [address], 05/26/2023 03:18:27 05/23/19 24 05/24/2023 CBC WITH DIFFE RENTI AL/PL ATELE T immature granulocytes 0 % not estab. Not Available [facility] ([facility]) [address] [facility], [place], [address], 05/26/2023 03:18:27 05/23/19 24 05/24/2023 CBC WITH DIFFE RENTI AL/PL ATELE T immature grans (abs) 0.0 x10e3 /uL 0.0-0. 1 Not Available [facility] ([facility]) [address] [facility], [place], [address], 05/26/2023 03:18:27 05/23/19 24 05/24/2023 CBC WITH DIFFE RENTI AL/PL ATELE T NRBC COMPOSING ROOM SUPERVISOR Not Available [facility] ([facility]) [address], [place], [address], 05/26/2023 03:18:27 05/23/19 24 05/24/2023 CBC WITH DIFFE RENTI AL/PL ATELE T hematology comments: COMPOSING ROOM SUPERVISOR Not Available [facility] ([facility]) [address], [place], [address], 05/26/2023 03:18:27 05/23/19 24 05/24/2023 UA WITH CULTU RE REFLE X specific gravity 1.021 1.005- 1.030 Not Available [facility] ([facility]) [address], [place], [address], 05/26/2023 03:18:28 05/23/19 24 05/24/2023 UA WITH CULTU RE REFLE X pH 5.5 5.0-7. 5 Not Available [facility] ([facility]) [address], [place], [address], 05/26/2023 03:18:28 05/23/19 24 05/24/2023 UA WITH CULTU RE REFLE X urine-color Yellow yellow Not Available [facility] ([facility]) [address] [facility], [place], [address], 05/26/2023 03:18:28 05/23/19 24 05/24/2023 UA WITH CULTU RE REFLE X appearance Clear clear Not Available [facility] ([facility]) [address], [place], [address], 05/26/2023 03:18:28 05/23/19 24 05/24/2023 UA WITH CULTU RE REFLE X WBC esterase Negati ve negati ve Not Available [facility] ([facility]) [address], [place], [address], 05/26/2023 03:18:28 01/12/20 24 05/24/2023 UA WITH CULTU RE REFLE X protein 1+ negati ve/tra ce abnormal Not Available [facility] ([facility]) [address] [facility], [place], [address], 05/26/2023 03:18:28 05/23/19 24 05/24/2023 UA WITH CULTU RE REFLE X glucose Negati ve negati ve Not Available [facility] ([facility]) [address] [facility], [place], [address], 05/26/2023 03:18:28 05/23/19 24 05/24/2023 UA WITH CULTU RE REFLE X ketones Negati ve negati ve Not Available [facility] ([facility]) [address] [facility], [place], [address], 05/26/2023 03:18:28 05/23/19 24 05/24/2023 UA WITH CULTU RE REFLE X occult blood Negati ve negati ve Not Available [facility] ([facility]) [address] [facility], [place], [address], 05/26/2023 03:18:28 05/23/19 24 05/24/2023 UA WITH CULTU RE REFLE X bilirubin Negati ve negati ve Not Available [facility] ([facility]) [address] [facility], [place], [address], 05/26/2023 03:18:28 05/23/19 24 05/24/2023 UA WITH CULTU RE REFLE X urobilinogen ,semi-qn 0.2 mg/dL 0.2-1. 0 Not Available [facility] ([facility]) [address] [facility], [place], [address], 05/26/2023 03:18:28 05/23/19 24 05/24/2023 UA WITH CULTU RE REFLE X nitrite, urine Negati ve negati ve Not Available [facility] ([facility]) [address], [place], [address], 05/26/2023 03:18:28 05/23/19 24 05/24/2023 UA WITH CULTU RE REFLE X microscopic examination See below: Micro scopi c was indic ated and was perfo rmed. Not Available [facility] ([facility]) [address], [place], [address], 05/26/2023 03:18:28 05/23/19 24 05/24/2023 UA WITH CULTU RE REFLE X WBC None seen /hpf 0 - 5 Not Available [facility] ([facility]) [address] [facility], [place], [address], 05/26/2023 03:18:28 05/23/19 24 05/24/2023 UA WITH CULTU RE REFLE X RBC None seen /hpf 0 - 2 Not Available [facility] ([facility]) [address] [facility], [place], [address], 05/26/2023 03:18:28 05/23/19 24 05/24/2023 UA WITH CULTU RE REFLE X epithelial cells (non renal) None seen /hpf 0 - 10 Not Available [facility] ([facility]) [address], [place], [address], 05/26/2023 03:18:28 05/23/19 24 05/24/2023 UA WITH CULTU RE REFLE X epithelial cells (renal) COMPOSING ROOM SUPERVISOR Not Available [facility] ([facility]) [address] [facility], [place], [address], 05/26/2023 03:18:28 05/23/19 24 05/24/2023 UA WITH CULTU RE REFLE X casts None seen /lpf none seen Not Available [facility] ([facility]) [address] [facility], [place], [address], 05/26/2023 03:18:28 05/23/19 24 05/24/2023 UA WITH CULTU RE REFLE X cast type COMPOSING ROOM SUPERVISOR Not Available [facility] ([facility]) [address], [place], [address], 05/26/2023 03:18:28 05/23/19 24 05/24/2023 UA WITH CULTU RE REFLE X crystals COMPOSING ROOM SUPERVISOR Not Available [facility] ([facility]) [address], [place], [address], 05/26/2023 03:18:28 05/23/19 24 05/24/2023 UA WITH CULTU RE REFLE X crystal type COMPOSING ROOM SUPERVISOR Not Available [facility] ([facility]) [address], [place], [address], 05/26/2023 03:18:28 05/23/19 24 05/24/2023 UA WITH CULTU RE REFLE X mucus threads COMPOSING ROOM SUPERVISOR Not Available [facility] ([facility]) [address], [place], [address], 05/26/2023 03:18:28 05/23/19 24 05/24/2023 UA WITH CULTU RE REFLE X bacteria None seen none seen/f ew Not Available [facility] ([facility]) [address], [place], [address], 05/26/2023 03:18:28 05/23/19 24 05/24/2023 UA WITH CULTU RE REFLE X yeast COMPOSING ROOM SUPERVISOR Not Available [facility] ([facility]) [address], [place], [address], 05/26/2023 03:18:28 05/23/19 24 05/24/2023 UA WITH CULTU RE REFLE X trichomonas COMPOSING ROOM SUPERVISOR Not Available [facility] ([facility]) [address], [place], [address], 05/26/2023 03:18:28 05/23/19 24 05/24/2023 UA WITH CULTU RE REFLE X comment COMPOSING ROOM SUPERVISOR Not Available [facility] ([facility]) [address] [facility], [place], [address], 05/26/2023 03:18:28 05/23/19 24 05/24/2023 UA WITH CULTU RE REFLE X urinalysis reflex Commen t This speci men will not refle x to a Urine Cultu re. Not Available [facility] ([facility]) [address] [facility], [place], [address], 05/26/2023 03:18:28 05/23/19 24 05/24/2023 LIPID PANEL cholesterol, total 187 mg/dL 100-19 9 Not Available [facility] ([facility]) [address] [facility], [place], [address], 05/26/2023 03:18:28 05/23/19 24 05/24/2023 LIPID PANEL triglyceride s 129 mg/dL 0-149 Not Available [facility] ([facility]) [address] [facility], [place], [address], 05/26/2023 03:18:28 05/23/19 24 05/24/2023 LIPID PANEL HDL cholesterol 58 mg/dL >39 Not Available [facility] ([facility]) [address] [facility], [place], [address], 05/26/2023 03:18:28 05/23/19 24 05/24/2023 LIPID PANEL VLDL cholesterol dustin 23 mg/dL 5-40 Not Available [facility] ([facility]) [address] [facility], [place], [address], 05/26/2023 03:18:28 05/23/19 24 05/24/2023 LIPID PANEL LDL chol calc ([facility]) 106 mg/dL 0-99 above high normal Not Available [facility] ([facility]) [address] [place], [address], 05/26/2023 03:18:28 05/23/19 24 05/24/2023 LIPID PANEL comment: COMPOSING ROOM SUPERVISOR Not Available [facility] ([facility]) [address] [facility], [place], [address], 05/26/2023 03:18:28 05/23/19 24 05/24/2023 VITAM IN B12 AND FOLAT E vitamin B12 505 pg/mL 232-12 45 Not Available [facility] ([facility]) [address] [facility], [place], [address], 05/26/2023 03:18:29 05/23/19 24 05/24/2023 VITAM IN B12 AND FOLAT E folate (folic acid), serum 13.5 NG/mL >3.0 A serum folat e zackery ntrat ion of less than 3.1 ng/mL is consi dered to repre sent clini dustin defic iency . Not Available [facility] ([facility]) [address] [facility], [place], [address], 05/26/2023 03:18:29 05/23/19 24 05/24/2023 HEMOG LOBIN A1C hemoglobin A1C 6.2 % 4.8-5. 6 above high normal Predi abete s: 5.7 - 6.4 Diabe [place]: >6.4 Glyce reginald contr ol for adult s with diabe [place]: <7.0 Not Available [facility] ([facility]) [address] [facility], [place], [address], 05/26/2023 03:18:29 05/23/19 24 05/24/2023 PROST ATE-S PECIF IC AG prostate specific [...] t be inter prete d as absol [place] evide nce of the prese nce or absen ce of [facility]. Not Available [facility] ([facility]) [address] [facility], [place], [address], 05/26/2023 03:18:30 05/23/19 24 05/24/2023 TSH REFLE X TO T4F TSH 2.200 uIU/m L 0.450- 4.500 Not Available [facility] ([facility]) [address] [place], [address], 05/26/2023 03:18:30 05/26/19 25 05/27/2024 CMP14 +EGFR glucose 98 mg/dL 70-99 normal Not Available [facility] ([facility]) [address] [place], [address], 05/27/2024 10:11:20 05/26/19 25 05/27/2024 CMP14 +EGFR BUN 16 mg/dL 8-27 normal Not Available [facility] ([facility]) [address] [place], [address], 05/27/2024 10:11:20 05/26/19 25 05/27/2024 CMP14 +EGFR creatinine 1.21 mg/dL 0.76-1 .27 normal Not Available [facility] ([facility]) [address] [place], [address], 05/27/2024 10:11:20 05/26/19 25 05/27/2024 CMP14 +EGFR eGFR 63 mL/mi n/1.7 3 >59 normal Not Available [facility] ([facility]) [address] [place], [address], 05/27/2024 10:11:20 05/26/19 25 05/27/2024 CMP14 +EGFR BUN/creatini ne ratio 13 10-24 normal Not Available [facility] ([facility]) [address] [place], [address], 05/27/2024 10:11:20 05/26/19 25 05/27/2024 CMP14 +EGFR sodium 141 mmol/ L 134-14 4 normal Not Available [facility] ([facility]) [address] [place], [address], 05/27/2024 10:11:20 05/26/19 25 05/27/2024 CMP14 +EGFR potassium 4.3 mmol/ L 3.5-5. 2 normal Not Available [facility] ([facility]) [address] [place], [address], 05/27/2024 10:11:20 05/26/19 25 05/27/2024 CMP14 +EGFR chloride 103 mmol/ L 96-106 normal Not Available [facility] ([facility]) [address] [place], [address], 05/27/2024 10:11:20 05/26/19 25 05/27/2024 CMP14 +EGFR carbon dioxide, total 25 mmol/ L 20-29 normal Not Available [facility] ([facility]) [address] [place], [address], 05/27/2024 10:11:20 05/26/19 25 05/27/2024 CMP14 +EGFR calcium 9.3 mg/dL 8.6-10 .2 normal Not Available [facility] ([facility]) [address] [place], [address], 05/27/2024 10:11:20 05/26/19 25 05/27/2024 CMP14 +EGFR protein, total 6.2 g/dL 6.0-8. 5 normal Not Available [facility] ([facility]) [address] [facility] [place], [address], 05/27/2024 10:11:20 05/26/19 25 05/27/2024 CMP14 +EGFR albumin 4.3 g/dL 3.8-4. 8 normal Not Available [facility] ([facility]) [address], [place], [address], 05/27/2024 10:11:20 05/26/19 25 05/27/2024 CMP14 +EGFR globulin, total 1.9 g/dL 1.5-4. 5 Not Available [facility] ([facility]) [address] [facility] [place], [address], 05/27/2024 10:11:20 05/26/19 25 05/27/2024 CMP14 +EGFR bilirubin, total 1.2 mg/dL 0.0-1. 2 normal Not Available [facility] ([facility]) [address] [facility], [place], [address], 05/27/2024 10:11:20 05/26/19 25 05/27/2024 CMP14 +EGFR alkaline phosphatase 77 IU/L 44-121 normal Not Available [facility] ([facility]) [address] [facility], [place], [address], 05/27/2024 10:11:20 05/26/19 25 05/27/2024 CMP14 +EGFR AST (SGOT) 19 IU/L 0-40 normal Not Available [facility] ([facility]) [address] [facility] [place], [address], 05/27/2024 10:11:20 05/26/19 25 05/27/2024 CMP14 +EGFR ALT (SGPT) 24 IU/L 0-44 normal Not Available [facility] ([facility]) [address] [facility], [place], [address], 05/27/2024 10:11:20 05/26/19 25 05/27/2024 CBC WITH DIFFE RENTI AL/PL ATELE T WBC 5.2 x10e3 /uL 3.4-10 .8 normal Not Available [facility] ([facility]) [address] [place], [address], 05/27/2024 10:11:21 05/26/1905/27/2024 CBC WITH DIFFE RENTI AL/PL ATELE T RBC 4.42 x10e6 /uL 4.14-5 .80 normal Not Available [facility] ([facility]) [address] [place], [address], 05/27/2024 10:11:21 05/26/1905/27/2024 CBC WITH DIFFE RENTI AL/PL ATELE T hemoglobin 14.0 g/dL 13.0-1 7.7 normal Not Available [facility] ([facility]) [address] [place], [address], 05/27/2024 10:11:21 05/26/1905/27/2024 CBC WITH DIFFE RENTI AL/PL ATELE T hematocrit 41.8 % 37.5-5 1.0 normal Not Available [facility] ([facility]) [address] [place], [address], 05/27/2024 10:11:21 05/26/1905/27/2024 CBC WITH DIFFE RENTI AL/PL ATELE T MCV 95 fL 79-97 normal Not Available [facility] ([facility]) [address] [place], [address], 05/27/2024 10:11:21 05/26/1905/27/2024 CBC WITH DIFFE RENTI AL/PL ATELE T MCH 31.7 pg 26.6-3 3.0 normal Not Available [facility] ([facility]) [address] [place], [address], 05/27/2024 10:11:21 05/26/1905/27/2024 CBC WITH DIFFE RENTI AL/PL ATELE T MCHC 33.5 g/dL 31.5-3 5.7 normal Not Available [facility] ([facility]) [address] [facility], [place], [address], 05/27/2024 10:11:21 05/26/19 25 05/27/2024 CBC WITH DIFFE RENTI AL/PL ATELE T RDW 14.0 % 11.6-1 5.4 Not Available [facility] ([facility]) [address] [facility], [place], [address], 05/27/2024 10:11:21 05/26/19 25 05/27/2024 CBC WITH DIFFE RENTI AL/PL ATELE T platelets 270 x10e3 /uL 150-45 0 normal Not Available [facility] ([facility]) [address] [facility], [place], [address], 05/27/2024 10:11:21 05/26/19 25 05/27/2024 CBC WITH DIFFE RENTI AL/PL ATELE T neutrophils 68 % not estab. normal Not Available [facility] ([facility]) [address] [facility], [place], [address], 05/27/2024 10:11:21 05/26/19 25 05/27/2024 CBC WITH DIFFE RENTI AL/PL ATELE T lymphs 18 % not estab. normal Not Available [facility] ([facility]) [address] [facility], [place], [address], 05/27/2024 10:11:21 05/26/19 25 05/27/2024 CBC WITH DIFFE RENTI AL/PL ATELE T monocytes 10 % not estab. normal Not Available [facility] ([facility]) [address] [facility], [place], [address], 05/27/2024 10:11:21 05/26/19 25 05/27/2024 CBC WITH DIFFE RENTI AL/PL ATELE T eos 3 % not estab. normal Not Available [facility] ([facility]) [address] [facility], [place], [address], 05/27/2024 10:11:21 05/26/19 25 05/27/2024 CBC WITH DIFFE RENTI AL/PL ATELE T basos 1 % not estab. normal Not Available [facility] ([facility]) [address] [facility], [place], [address], 05/27/2024 10:11:21 05/26/19 25 05/27/2024 CBC WITH DIFFE RENTI AL/PL ATELE T immature cells COMPOSING ROOM SUPERVISOR Not Available [facility] ([facility]) [address] [facility], [place], [address], 05/27/2024 10:11:21 05/26/19 25 05/27/2024 CBC WITH DIFFE RENTI AL/PL ATELE T neutrophils (absolute) 3.5 x10e3 /uL 1.4-7. 0 normal Not Available [facility] ([facility]) [address] [place], [address], 05/27/2024 10:11:21 05/26/19 25 05/27/2024 CBC WITH DIFFE RENTI AL/PL ATELE T lymphs (absolute) 1.0 x10e3 /uL 0.7-3. 1 normal Not Available [facility] ([facility]) [address] [place], [address], 05/27/2024 10:11:21 05/26/19 25 05/27/2024 CBC WITH DIFFE RENTI AL/PL ATELE T monocytes(ab solute) 0.5 x10e3 /uL 0.1-0. 9 normal Not Available [facility] ([facility]) [address] [place], [address], 05/27/2024 10:11:21 05/26/19 25 05/27/2024 CBC WITH DIFFE RENTI AL/PL ATELE T eos (absolute) 0.2 x10e3 /uL 0.0-0. 4 normal Not Available [facility] ([facility]) [address] [facility], [place], [address], 05/27/2024 10:11:21 05/26/19 25 05/27/2024 CBC WITH DIFFE RENTI AL/PL ATELE T baso (absolute) 0.1 x10e3 /uL 0.0-0. 2 normal Not Available [facility] ([facility]) [address] [facility], [place], [address], 05/27/2024 10:11:21 05/26/19 25 05/27/2024 CBC WITH DIFFE RENTI AL/PL ATELE T immature granulocytes 0 % not estab. Not Available [facility] ([facility]) [address] [place], [address], 05/27/2024 10:11:21 05/26/19 25 05/27/2024 CBC WITH DIFFE RENTI AL/PL ATELE T immature grans (abs) 0.0 x10e3 /uL 0.0-0. 1 Not Available [facility] ([facility]) [address] [place], [address], 05/27/2024 10:11:21 05/26/19 25 05/27/2024 CBC WITH DIFFE RENTI AL/PL ATELE T NRBC COMPOSING ROOM SUPERVISOR Not Available [facility] ([facility]) [address] [place], [address], 05/27/2024 10:11:21 05/26/19 25 05/27/2024 CBC WITH DIFFE RENTI AL/PL ATELE T hematology comments: COMPOSING ROOM SUPERVISOR Not Available [facility] ([facility]) [address] [place], [address], 05/27/2024 10:11:21 05/26/19 25 05/27/2024 UA WITH CULTU RE REFLE X specific gravity 1.015 1.005- 1.030 normal Not Available [facility] ([facility]) [address] [facility], [place], [address], 05/27/2024 10:11:21 05/26/19 25 05/27/2024 UA WITH CULTU RE REFLE X pH 6.5 5.0-7. 5 normal Not Available [facility] ([facility]) [address] [facility], [place], [address], 05/27/2024 10:11:21 05/26/19 25 05/27/2024 UA WITH CULTU RE REFLE X urine-color Yellow yellow Not Available [facility] ([facility]) [address] [facility], [place], [address], 05/27/2024 10:11:21 05/26/19 25 05/27/2024 UA WITH CULTU RE REFLE X appearance Clear clear Not Available [facility] ([facility]) [address] [facility], [place], [address], 05/27/2024 10:11:21 05/26/19 25 05/27/2024 UA WITH CULTU RE REFLE X WBC esterase Negati ve negati ve Not Available [facility] ([facility]) [address] [facility], [place], [address], 05/27/2024 10:11:21 05/26/19 25 05/27/2024 UA WITH CULTU RE REFLE X protein 2+ negati ve/tra ce abnormal Not Available [facility] ([facility]) [address] [facility], [place], [address], 05/27/2024 10:11:21 05/26/19 25 05/27/2024 UA WITH CULTU RE REFLE X glucose Negati ve negati ve Not Available [facility] ([facility]) [address] [place], [address], 05/27/2024 10:11:21 05/26/19 25 05/27/2024 UA WITH CULTU RE REFLE X ketones Negati ve negati ve Not Available [facility] ([facility]) [address] [place], [address], 05/27/2024 10:11:21 05/26/19 25 05/27/2024 UA WITH CULTU RE REFLE X occult blood Negati ve negati ve Not Available [facility] ([facility]) [address] [facility], [place], [address], 05/27/2024 10:11:21 05/26/19 25 05/27/2024 UA WITH CULTU RE REFLE X bilirubin Negati ve negati ve Not Available [facility] ([facility]) [address] [facility], [place], [address], 05/27/2024 10:11:21 05/26/19 25 05/27/2024 UA WITH CULTU RE REFLE X urobilinogen ,semi-qn 0.2 mg/dL 0.2-1. 0 normal Not Available [facility] ([facility]) [address] [place], [address], 05/27/2024 10:11:21 05/26/19 25 05/27/2024 UA WITH CULTU RE REFLE X nitrite, urine Negati ve negati ve Not Available [facility] ([facility]) [address] [place], [address], 05/27/2024 10:11:21 05/26/19 25 05/27/2024 UA WITH CULTU RE REFLE X microscopic examination See below: Micro scopi c was indic ated and was perfo rmed. Not Available [facility] ([facility]) [address] [place], [address], 05/27/2024 10:11:21 05/26/19 25 05/27/2024 UA WITH CULTU RE REFLE X WBC None seen /hpf 0 - 5 Not Available [facility] ([facility]) [address], [place], [address], 05/27/2024 10:11:21 05/26/19 25 05/27/2024 UA WITH CULTU RE REFLE X RBC None seen /hpf 0 - 2 Not Available [facility] ([facility]) [address], [place], [address], 05/27/2024 10:11:21 05/26/19 25 05/27/2024 UA WITH CULTU RE REFLE X epithelial cells (non renal) None seen /hpf 0 - 10 Not Available [facility] ([facility]) [address], [place], [address], 05/27/2024 10:11:21 05/26/19 25 05/27/2024 UA WITH CULTU RE REFLE X epithelial cells (renal) COMPOSING ROOM SUPERVISOR Not Available [facility] ([facility]) [address], [place], [address], 05/27/2024 10:11:21 05/26/19 25 05/27/2024 UA WITH CULTU RE REFLE X casts None seen /lpf none seen Not Available [facility] ([facility]) [address], [place], [address], 05/27/2024 10:11:21 05/26/19 25 05/27/2024 UA WITH CULTU RE REFLE X cast type COMPOSING ROOM SUPERVISOR Not Available [facility] ([facility]) [address], [place], [address], 05/27/2024 10:11:21 05/26/19 25 05/27/2024 UA WITH CULTU RE REFLE X crystals COMPOSING ROOM SUPERVISOR Not Available [facility] ([facility]) [address], [place], [address], 05/27/2024 10:11:21 05/26/19 25 05/27/2024 UA WITH CULTU RE REFLE X crystal type COMPOSING ROOM SUPERVISOR Not Available [facility] ([facility]) [address] [facility], [place], [address], 05/27/2024 10:11:21 05/26/19 25 05/27/2024 UA WITH CULTU RE REFLE X mucus threads COMPOSING ROOM SUPERVISOR Not Available [facility] ([facility]) [address] [facility], [place], [address], 05/27/2024 10:11:21 05/26/19 25 05/27/2024 UA WITH CULTU RE REFLE X bacteria None seen none seen/f ew Not Available [facility] ([facility]) [address] [facility], [place], [address], 05/27/2024 10:11:21 05/26/19 25 05/27/2024 UA WITH CULTU RE REFLE X yeast COMPOSING ROOM SUPERVISOR Not Available [facility] ([facility]) [address] [facility], [place], [address], 05/27/2024 10:11:21 05/26/19 25 05/27/2024 UA WITH CULTU RE REFLE X trichomonas COMPOSING ROOM SUPERVISOR Not Available [facility] ([facility]) [address] [facility], [place], [address], 05/27/2024 10:11:21 05/26/19 25 05/27/2024 UA WITH CULTU RE REFLE X comment COMPOSING ROOM SUPERVISOR Not Available [facility] ([facility]) [address] [facility], [place], [address], 05/27/2024 10:11:21 05/26/19 25 05/27/2024 UA WITH CULTU RE REFLE X urinalysis reflex Commen t This speci men will not refle x to a Urine Cultu re. Not Available [facility] ([facility]) [address] [facility], [place], [address], 05/27/2024 10:11:21 05/26/19 25 05/27/2024 LIPID PANEL cholesterol, total 196 mg/dL 100-19 9 normal Not Available [facility] ([facility]) [address] [facility], [place], [address], 05/27/2024 10:11:22 05/26/19 25 05/27/2024 LIPID PANEL triglyceride s 135 mg/dL 0-149 normal Not Available [facility] ([facility]) [address] [facility], [place], [address], 05/27/2024 10:11:22 05/26/19 25 05/27/2024 LIPID PANEL HDL cholesterol 71 mg/dL >39 normal Not Available [facility] ([facility]) [address] [facility], [place], [address], 05/27/2024 10:11:22 05/26/19 25 05/27/2024 LIPID PANEL VLDL cholesterol dustin 23 mg/dL 5-40 Not Available [facility] ([facility]) [address] [facility], [place], [address], 05/27/2024 10:11:22 05/26/19 25 05/27/2024 LIPID PANEL LDL chol calc ([facility]) 102 mg/dL 0-99 above high normal Not Available [facility] ([facility]) [address] [facility], [place], [address], 05/27/2024 10:11:22 05/26/19 25 05/27/2024 LIPID PANEL LDL calc comment: COMPOSING ROOM SUPERVISOR Not Available [facility] ([facility]) [address] [facility], [place], [address], 05/27/2024 10:11:22 05/26/19 25 05/27/2024 VITAM IN B12 AND FOLAT E vitamin B12 496 pg/mL 232-12 45 normal Not Available [facility] ([facility]) [address] [place], [address], 05/27/2024 10:11:23 05/26/19 25 05/27/2024 VITAM IN B12 AND FOLAT E folate (folic acid), serum 7.6 NG/mL >3.0 normal A serum folat e zackery ntrat ion of less than 3.1 ng/mL is consi dered to repre sent clini dustin defic iency . Not Available [facility] ([facility]) [address] [facility], [place], [address], 05/27/2024 10:11:23 05/26/19 25 05/27/2024 HEMOG LOBIN A1C hemoglobin A1C 6.3 % 4.8-5. 6 above high normal Predi abete s: 5.7 - 6.4 Diabe cam[place]: >6.4 Glyce reginald contr ol for adult s with diabe [place]: <7.0 Not Available [facility] ([facility]) [address] [facility], [place], [address], 05/27/2024 10:11:23 05/26/19 25 05/27/2024 PROST ATE-S PECIF IC AG prostate specific Ag 4.5 NG/mL 0.0-4. 0 above high normal Pratima ECLIA metho dolog y. Accor ding [...] t be inter prete d as absol [place] evide nce of the prese nce or absen ce of nicolas gonzalez disea se. Not Available [facility] ([facility]) [address] [facility], [place], [address], 05/27/2024 10:11:24 05/26/19 25 05/27/2024 TSH REFLE X TO T4F TSH 1.020 uIU/m L 0.450- 4.500 normal Not Available [facility] ([facility]) [address], [place], [address], 05/27/2024 10:11:24 06/20/19 23 06/20/2022 XR, chest , 2 view HISTOR Y: Cough COMPAR AVERY: 015 FINDIN GS: PA and latera l views. Normal cardio medias tinal silhou ette. Aortic arch vascul ar calcif icatio ns. No consol idatio n, effusi on or pneumo thorax . Osseou s struct ures are intact . IMPRES COLLEEN: No acute cardio pulmon alexx proces s. For servic es render ed at: [facility] Interp reted By: INÉS Grady MD Signat ure Date: 2022 17:05: 10 Perfor med at [facility] [place] [phone] and interp reted by INÉS Grady MD INTERFACE [employer] [address] [facility], [place], [address], 06/20/2022 20:48:41 06/20/19 23 06/20/2022 XR, chest , 2 view No observ ation record ed. [email or web address] [employer] [address] [facility], [place], [address], 06/27/2022 18:08:19 08/28/19 23 08/21/2022 XR, cervi [...] paque foreig n body is seen. IMPRES COLLEEN: 1. Mild to modera te multil evel degene rative change s, most severe C5-6. 2. Straig htenin g of the cervic al lordos is with 2 mm anteri or sublux ation of C3 on C4, which could be degene rative or relate d to spasm or strain . 3. No acute osseou s abnorm ality. For servic es render ed at: [employer] Interp reted By: KAIA HENSLEY MD Signat ure Date: 2022 13:07: 57 Perfor med at [employer] [facility] [place] [phone] and interp reted by KAIA HENSLEY MD INTERFACE [employer] [address] [facility], [place], [address], 08/27/2022 17:26:55 08/28/19 23 08/21/2022 XR, cervi dustin spine No observ ation record ed. peace [employer] [address] [place], [address], 09/04/2022 20:42:08 08/30/19 23 08/21/2022 XR, cervi dustin spine , 4 or 5 view No observ ation record ed. [email or web address] [employer] [facility] [address], [place], [address], 08/29/2022 16:39:29 11/18/19 23 11/13/2022 XR, hand, [...] abnorm alitie s are eviden t. IMPRES COLLEEN: 1. No acute osseou s or joint abnorm alitie s. For servic es render ed at: [facility] Interp reted By: SANDIE WHITE MD Signat ure Date: 2022 14:50: 56 Perfor med at [facility] [place] [phone] and interp reted by SANDIE WHITE MD INTERFACE [employer] [place], [address], 11/17/2022 18:29:27 11/18/19 23 11/13/2022 XR, hand, 3 or more view No observ ation record ed. [email or web address] [employer] [address] [address] [facility], [place], [address], 11/18/2022 11:00:03 Result Notes Documentation Provider Name and Address Organization Details Recorded Time Xr, Chest, 2 View : HISTORY: Cough COMPARISON: 05/23/2014 FINDINGS: PA and lateral views. Normal cardiomediastinal silhouette. Aortic arch vascular calcifications. No consolidation, effusion or pneumothorax. Osseous structures are intact. IMPRESSION: No acute cardiopulmonary process. For services rendered at: [facility] Interpreted By: INÉS RICHARDS MD Signature Date: 06/20/2022 17:05:10 Performed at [facility] [place] and interpreted by INÉS RICHARDS MD Not Available [facility] 06/20/2022 20:48:41 Xr, Cervical Spine : INDICATION: Cervicalgia. Neck pain for years. New tingling right side for 10 days. No injury : Cervicalgia TECHNIQUE: 4 views of the cervical spine COMPARISON: None. FINDINGS: Straightening of the cervical lordosis. 2 mm anterior subluxation of C3 on C4. The vertebral body heights are maintained. Multilevel loss of intervertebral disc height is seen with endplate irregularity and osteophytosis, compatible with degenerative disc disease. This is most severe at C5-6. Osseous structures are normally mineralized. No prevertebral soft tissue swelling is seen. The lateral masses of C1 are nondisplaced. No dens fracture. No radioopaque foreign body is seen. IMPRESSION: 1. Mild to moderate multilevel degenerative changes, most severe C5-6. 2. Straightening of the cervical lordosis with 2 mm anterior subluxation of C3 on C4, which could be degenerative or related to spasm or strain. 3. No acute osseous abnormality. For services rendered at: [facility] Interpreted By: KAIA HENSLEY MD Signature Date: 08/27/2022 13:07:[address] [facility] and interpreted by KAIA HENSLEY MD Not Available [facility] 08/27/2022 17:26:55 Xr, Hand, 3 Or More View : HISTORY: Worsening popping and stiffness for one year. No injury: Pain in left finger(s) COMPARISON: None FINDINGS: 3 views of left hand were obtained. No acute fractures or dislocation is evident. No joint erosions or periarticular calcifications are evident. No soft tissue abnormalities are evident. IMPRESSION: 1. No acute osseous or joint abnormalities. For services rendered at: [facility] Interpreted By: SANDIE WHITE MD Signature Date: 11/17/2022 14:50:[address] [facility] and interpreted by SANDIE WHITE MD Not Available [facility] 11/17/2022 18:29:27 Problems Name Problem SNOMED Code Status Onset Date Resolution Date Notes Provider Name and Address Organization Details Recorded Time Carcinom a of prostate 973024270 Completed 201803/20/2021 diagnose d 2010, recurren ce 2016; XRT and brachyth erapy NEAL Beatty - [facility] 2 11:14:28 Carcinom a of prostate 450166814 Completed 201806/15/2021 NEAL Beatty - [facility] 2 11:14:28 [facility] hyperten colleen 28569490 Active 2019 NEAL Colvin - [facility] 4 11:38:54 Mixed hyperlip idemia 610666902 Active 2019 Nadeen Harmon null, [place] - [facility] 5 12:32:32 Impaired fasting glycemia 664826718 Active 2019 Vanessa Baumann null, [place] - [facility] 4 11:46:49 History of malignan t neoplasm of prostate 242369026 Active 2020 diagnose d 2010, recurren ce 2016; XRT and brachyth erapy. Followed with Dr. Jhonatan Godoy (as Dr. Esa Brennan retired) , radiatio n oncology . 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 Adenoma Arleth Burrell MD [address], [place], [id number] , [facility] - [facility] 4 04:08:31 Paroxysm al atrial fibrilla tion 968105407 Active 2024 Arleth Burrell MD [address], [place], [id number] , [facility] - [facility] 5 20:04:01 Persiste nt atrial fibrilla tion 101313449 Active 2024 ADDED FROM CARDIOLO GY DOCUMENT ID : [id number] REPORT DATE: 11/20/19 October, - Watchman /Ablatio n performe d Arleth Burrell MD [address], [place], [id number] , [facility] - [facility] 5 20:48:53 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 Procedures Surgical History Date Name Laterality Status Provider Name and Address Organization Details Recorded Time 05/25/19 25 Advanced Directives / Advanced Care Planning completed [facility] [employer] 05/25/2024 11:56:13 05/25/19 25 ADLs/AIDLs completed [facility] [facility], [facility] 05/25/2024 11:56:13 05/25/19 25 * MAWV/Subsequent Annual Medicare Wellness Evaluation completed [facility] [facility], [facility] 05/25/2024 11:56:13 05/25/19 25 * Q$-Alcohol screening billing completed [facility] [employer], [facility] 05/25/2024 11:56:13 05/25/19 25 Evaluation Checklist - MAWV completed [facility] [facility], [facility] 05/25/2024 11:56:13 05/25/19 25 Patient Health Survey completed [facility] [facility], [facility] 05/25/2024 11:56:14 11/15/19 23 TW Trigger finger injection completed Anh Erickson MD [address] ,[address], [place], [address] [email or web address], [facility] 11/14/2022 13:21:04 08/22/19 23 .Screening-Depre ssion-Negative completed [facility] [email or web address], [facility] 08/21/2022 17:04:17 08/22/19 23 .Screening-TOB/S moking-Negative completed [employer] [facility] [employer] [facility], [facility] 08/21/2022 17:04:21 06/17/19 23 Medication Update & Review completed [facility] [employer] [facility], [facility] 06/17/2022 09:54:04 06/17/19 23 Advanced Directives / Advanced Care Planning completed [facility] [employer] [facility], [facility] 06/17/2022 09:54:04 06/17/19 23 ADLs/AIDLs completed Mundo Slater [place] - [facility] 06/17/2022 09:54:04 06/15/19 22 Medicare Preventative Screening Schedule completed Ina Garcia [place] - [facility] 06/15/2021 11:29:23 06/15/19 22 [employer] Wellness Discussion List completed Ina Garcia [place] - [facility] 06/11/2021 10:21:57 06/05/19 19 Medicare Preventative Screening Schedule completed Sandra Oswald NP [address], [place], [address], [place] [facility] 06/05/2018 13:18:22 06/05/19 19 RCT [employer] Wellness Discussion List completed Sandra Oswald NP [address], [place], [address], [facility] - [facility] 06/05/2018 10:35:55 left atrial appendage closure completed Arleth Burrell MD [address], [place], [address], [place] - [facility] 12/09/2024 20:47:27 cardiac ablation for atrial fibrillation completed Arleth Burrell MD [address], [place], [address], [facility] - [facility] 12/09/2024 20:48:05 Imaging Results None recorded. Procedure Notes None recorded. Medical Equipment None Reported. Allergies No known drug allergies Medications Name Sig Start Date Stop Date Status Note LastModified by Organization Details LastModified Time amoxicill in 500 mg capsule 08/21 completed Not Available Not Available Not Available atorvasta tin 40 mg tablet Take 1 tablet every day by oral route at bedtime. 2024 active Rx was printed Not Available Not Available Not Available doxycycli ne hyclate 100 mg capsule TAKE 1 CAPSULE BY MOUTH TWICE DAILY FOR 7 DAYS active Not Available Not Available No t Available amiodaron e 200 mg tablet Take 1 tablet every day by oral route. 2024 active Rx was printed Not Available Not Available Not Available benzonata te 200 mg capsule TAKE 1 CAPSULE BY MOUTH THREE TIMES DAILY NEEDED FOR COUGH active Not Available Not Available No t Available Medrol (Moncho) 4 mg tablets in a dose pack Take as directed 2022 active Not Available Not Available Not Avai lable prednison e 20 mg tablet TAKE 2 TABLETS BY MOUTH DAILY FOR 5 DAYS active Not Available Not Available No t Available methylpre dnisolone 4 mg tablet active Not Available Not Available Not Available amlodipin e 5 mg tablet Take 1 tablet every day by oral route in the evening. 2024 active Rx was printed Not Available Not Available Not Available amlodipin e 5 mg-benaze pril 20 mg capsule Take 1 capsule every day by oral route. 2024 active Rx was printed Not Available Not Available Not Available hydrocodo ne 7.5 mg-acetam inophen 325 mg tablet 08/21 completed Not Available Not Available Not Available triamtere ne 37.5 mg-hydroc hlorothia zide 25 mg tablet Take 1 tablet 3 times weekly MWF by oral route. 2024 active Rx was printed Not Available Not Available Not Available hydrocort isone 2.5 % topical cream active Not Available Not Available Not Available albuterol sulfate HFA 90 mcg/actua tion aerosol inhaler INHALE 2 PUFFS BY MOUTH EVERY 4 TO 6 HOURS NEEDED FOR SHORTNES S OF BREATH OR WHEEZING active Not Available Not Available No t Available fluticaso ne propionat e 50 mcg/actua tion nasal spray,kemal pension Two sprays in each nostril once daily 2024 active Not Available Not Available Not Avai lable atenolol 50 mg tablet TAKE ONE TABLET BY MOUTH DAILY 05/25 completed Not Available Not Available Not Available Vitamin D3 take 1 tablet daily active Not Available Not Available No t Available oregano oil 1,500 mg capsule Take 1 capsule every day by oral route. active Not Available Not Available No t Available krill oil take 1 tab daily active Not Available Not Available No t Available Xarelto 20 mg tablet active Not Available Not Available Not Available Shingrix (PF) 50 mcg/0.5 mL intramusc ular suspensio n, kit 08/21 completed Not Available Not Available Not Available Vitals Date Recorded Body height Body mass index (BMI) Body weight Heart rate Oxygen saturation Body temperature Systolic And Diastolic Provider Name and Address Organization Details Last Updated DateTime 4 170.18 cm 36.5 kg/m2 728355. 02 g 78 /min 95 % 95.9 [degF] 128/84 mm[Hg] [facility] - [facility] 4 11:26:10 Date Recorded Body weight Heart rate Oxygen saturation Body temperature Body mass index (BMI) Body height Pain severity - 0-10 verbal numeric rating [Score] - Reported Systolic And Diastolic Provider Name and Address Organization Details Last Updated DateTime 5 160533. 8 g 57 /min 96 % 97.2 [degF] 37 kg/m2 170.18 cm 0 134/70 mm[Hg] [facility] - [facility] 5 12:04:11 Date Recorded Body height Body mass index (BMI) Body weight Oxygen saturation Heart rate Body temperature Systolic And Diastolic Provider Name and Address Organization Details Last Updated DateTime 3 170.18 cm 36.8 kg/m2 102499. 21 g 97 % 62 /min 96.8 [degF] 132/78 mm[Hg] [facility] - [facility] 3 10:07:27 Date Recorded Systolic And Diastolic Systolic And Diastolic Provider Name and Address Organization Details Last Updated DateTime 08/21/2022 130/80 mm[Hg] 130/80 mm[Hg] Sanjeev Purcell, KASSI [address] ,[address], [place], [address], [place] - [facility] 08/21/2022 18:13:12 Date Recorded Body height Body mass index (BMI) Body weight Oxygen saturation Heart rate Body temperature Systolic And Diastolic Provider Name and Address Organization Details Last Updated DateTime 3 170.18 cm 37.1 kg/m2 684666. 39 g 95 % 98 /min 97.3 [degF] 154/80 mm[Hg] Sindhu Fonseca [place] - [facility] 3 17:44:07 Date Recorded Body height Body mass index (BMI) Body weight Provider Name and Address Organization Details Last Updated DateTime 11/14/2022 170.18 cm 36.8 kg/m2 298975.93 g Miri Arenas [place] - [facility] 11/14/2022 13:00:42 Social History Question Answer Notes LastModified by Organizat ion Details LastModified Time Tobacco Smoking Status Former Smoker Quit 1998 Ina carrera [place] - [facility] 06/15/2021 11:09:12 Are You Blind Or Do You Have Difficulty Seeing? No [email or web address] Information not available 06/17/2022 What Is Your Level Of Caffeine Consumption? None Information not available 06/05/2018 Are You Deaf Or Do You Have Serious Difficulty Hearing? No [email or web address] Information not available 06/17/2022 Are There Any [...] Smoked Tobacco? 20 Information not available 06/05/2018 Do You Have Difficulty Walking Or Climbing Stairs? No [email or web address] Information not available 06/17/2022 Sex: Unknown Functional Status Question Answer Note LastModified by Organizat ion Details LastModified Time What is your level of alcohol consumption? Occasional [email or web address] Information not available 01/16/2018 Do you have transportation difficulties? No Information not available 06/17/2022 Are you able to walk independently without assistance or assistive devices? [email or web address] Information not available 06/17/2022 Do you have difficulty doing errands alone? No [email or web address] Information not available 06/17/2022 Are you able to care for yourself independently? Yes Information not available 06/05/2018 Do you have difficulty dressing, bathing, grooming, or toileting? No [email or web address] Information not available 06/17/2022 Mental Status Question Answer Note LastModified by Organization D etails LastModified Time Do you have difficulty concentrating, remembering or making decisions? No [email or web address] Information no t available 06/17/2022 Family History [...] available 2020 17:02:01 Medical History Condition Response Cancer Hypertension (high blood pressure) Y Immunizations Vaccine Type Date Status Note Provider Nam e and Address Organization Details Recorded Time pneumococcal polysaccharide PPV23 6 completed Sindhu carrera [place] - [facility] 08/21/2022 17:20:29 Pneumococcal conjugate PCV 13 7 completed Mundo Thayer [place] - [facility] 05/20/2023 11:21:01 zoster live 1 completed Sindhu carrera [place] - [facility] 08/21/2022 17:20:29 COVID-19, mRNA, LNP-S, PF, 30 mcg/0.3 mL dose 2 completed Sindhu carrera [place] - [facility] 08/21/2022 17:20:29 SARS-COV-2 (COVID-19) vaccine, UNSPECIFIED 2 completed Sindhu carrera, [place] - [facility] 08/21/2022 17:20:29 zoster recombinant 0 completed Sindhu carrera, [place] - [facility], [facility] 08/21/2022 17:20:29 zoster recombinant 0 completed Sindhu carrera, [facility], [facility] 08/21/2022 17:20:29 Influenza, high-dose, quadrivalent, PF 2 completed Sindhu Fonseca null, [facility], [facility] 08/21/2022 17:20:29 Influenza, high-dose, quadrivalent, PF 0 completed Sindhu carrera, [facility], [facility] 08/21/2022 17:20:29 COVID-19, mRNA, LNP-S, PF, 30 mcg/0.3 mL dose, kiko-sucrose 2 completed Sindhu carrera, [facility], [facility] 08/21/2022 17:20:29 COVID-19, mRNA, LNP-S, bivalent, PF, 30 mcg/0.3 mL dose 2 completed Sindhu carrera, [facility], [facility] 08/21/2022 17:20:29 pneumococcal polysaccharide PPV23 9 completed Sindhu carrera, [facility], [facility] 08/21/2022 17:20:29 pneumococcal polysaccharide PPV23 9 completed Sindhu carrera, [facility], [facility] 08/21/2022 17:20:29 Pneumococcal conjugate PCV 13 7 completed Sindhu carrera, [facility], [facility] 08/21/2022 17:20:29 Influenza, high-dose, trivalent, PF 6 completed Sindhu carrera, [facility], [facility] 08/21/2022 17:20:29 Influenza, high-dose, trivalent, PF 9 completed Sindhu carrera, [facility] 08/21/2022 17:20:29 Influenza, split virus, trivalent, preservative 9 completed Sindhu carrera, [facility] 08/21/2022 17:20:29 Influenza, split virus, trivalent, PF 4 completed Sindhu Fonsec[facility], [facility] 08/21/2022 17:20:29 Influenza, high-dose, trivalent, PF 8 completed Sindhu Fonsec[facility], [facility] 08/21/2022 17:20:29 Influenza, high-dose, quadrivalent, PF 3 completed Mundo LukeClovis null, [facility] 05/20/2023 11:21:01 RSV, bivalent, protein subunit RSVpreF, diluent reconstituted, 0.5 mL, PF 3 completed [facility] 05/20/2023 11:21:01 COVID-19, mRNA, LNP-S, PF, kiko-sucrose, 30 mcg/0.3 mL 3 completed [facility] 05/20/2023 11:21:01 COVID-19, mRNA, LNP-S, PF, kiko-sucrose, 30 mcg/0.3 mL 4 completed [facility] 05/25/2024 11:57:12 Influenza, high-dose, trivalent, PF 4 completed [facility] 05/25/2024 11:57:12 COVID-19, mRNA, LNP-S, PF, 30 mcg/0.3 mL dose 1 completed Sindhu Fonsec[facility], [facility] 08/21/2022 17:20:29 COVID-19, mRNA, LNP-S, PF, 30 mcg/0.3 mL dose 1 completed Sindhu Fonsec[facility], [facility] 08/21/2022 17:20:29 COVID-19, mRNA, LNP-S, PF, 30 mcg/0.3 mL dose 1 completed Sindhu Fonseca [facility], [facility] 08/21/2022 17:20:29 Influenza, high-dose, quadrivalent, PF 1 completed Sindhu carrera, [place] - [facility] 08/21/2022 17:20:29 zoster recombinant 0 completed Sindhu carrera, [place] - [facility] 08/21/2022 17:20:29 zoster recombinant 0 completed Sindhu carrera, [place] - [facility] 08/21/2022 17:20:29 Past Encounters Encounter ID Performer Location Encounter Start Date Encounter Closed Date Diagnosis/Indication Diagnosis SNOMED-CT Code Diagnosis ICD10 Code Diagnosis IMO Codes Diagnosis Note [id number] Sandra Oswald NP [facility] [address] [place] [address] 06/05/2018 09:55:51 06/05/2018 10:41:22 Adult health examination 659289722 Z00.00 AWV done Follow up with specialist s as planned Labs to be done Flu vaccine discussed Colonoscop y ordered, send referral to GI Continue with medication the same No refills needed Continue with diet and exercise as discussed Support system discussed Prevention for falls discussed F/u in 3 m or as planned with PCP Screening for malignant neoplasm of colon 450366016 Z12.11 will send to GI to discuss plan, referral made Impaired f asting glycemia 239738635 R73.01 Bilirubin level above reference range 55637772 R79.89 will recheck bili in 3 m Essential hypertension 30171224 I10 Stable on current medication , will cont. regimen, refills needed Diet: Low starch, Low salt, Lean meats, Less fat, More vegetables Exercise: Aerobic Exercise as tolerated 30 minutes 3-5 times per week Take ASA 81mg daily for prevention of NJ, stroke and . Wt management Yearly Ophthalmol ogy evaluation Home Blood Pressure Diary Patient to call if BP > 160/100. To bring in home BP monitor next visit. All risks detailed about compliance with medication s, Home Blood Pressure Monitoring , Physician Visits, Exercise and diet recommenda tions - including [place], Stroke, Blindness, Renal Failure, and . Mixed hyperlipidemia 267 645791 E78.2 Controlled on current regimen, diet and exercise discussed, will repeat labs in 3 months [id number] Arleth Burrell MD [facility] - [place] [address] [facility] [address] 06/10/2019 09:53:57 06/10/2019 14:21:08 Essential hypertension 32724501 I10 Status: Treated and controlled Plan: Continue treatment Mixed hyperlipidemia 267 758863 E78.2 Status: Treated and controlled Plan: Continue treatment, check lab Carcinoma of prostate 25 9900850 C61 Status: In remission following radiation therapy Plan: Follow PSA Impaired f asting glycemia 742128714 R73.01 Status: Mild Plan: Continue diet and follow lab Fatigue 42038054 R53.83 [id number] Arleth Burrell MD [facility] - [place] [address] [place] [address] 06/13/2020 11:03:08 06/14/2020 13:41:31 Essential hypertension 72044838 I10 Status: Treated and controlled Plan: Continue treatment Mixed hyperlipidemia 267 226410 E78.2 Status: Treated Plan: Continue treatment, check lab Carcinoma of prostate 25 4056121 C61 Status: controlled Plan: Follow with Urology, check lab Impaired f asting glycemia 195141603 R73.01 Status: Mild Plan: Continue diet and follow lab Fatigue 00610144 R53.83 Nocturia 338839469 R35.1 [id number] Arleth Burrell MD [facility] - [place] [address] [place] [address] 03/20/2021 15:04:28 03/21/2021 16:24:56 Rupture of tendon of biceps 573322904 M66.829 Status: new onset, left bicep. although symptoms relatively mild Plan: ortho eval, gentle stretching Pain of le ft shoulder joint 6541124321 5202542 M25.512 Status: mild but persistent following influenza vaccine last month. uncertain relation between vaccine, shoulder pain and bicep rupture if any Plan: ortho eval History of malignant neoplasm of prostate 169275531 Z85.46 Status: in remission. recent PET scan with no evidence of recurrence Plan: congrats and follow as scheduled with radiation oncology Cough 29130836 R05.9 [id number] Arleth Cartwright MD [facility] [place] [address] [place] [address] 04/13/2021 10:17:30 04/13/2021 11:34:58 Rupture of tendon of biceps, long head 62069084 S46.112A [id number] Arleth Burrell MD [facility] [address] [place] [address] 06/15/2021 10:54:36 06/15/2021 14:28:54 Adult health examination 211116333 Z00.00 Plan: mostly up to date. Cologuard ordered Obesity 354604374 E66.9 Health impact of morbid obesity reviewed.E ducation provided.W eight loss opportunit ies reviewed. Body mass index 30+ - obesity 026862402 Z68.36 Plan outlined under Morbid Obesity Diagnosis. History of malignant neoplasm of prostate 148532238 Z85.46 Status: apparently in remission although slowly rising PSA Plan: PSA ordered, and follow with radiation oncology, Dr. Brennan Impaired f asting glycemia 830567240 R73.01 Status: Mild Plan: Continue diet and follow lab Mixed hyperlipidemia 267 102033 E78.2 Fatigue 02015342 R53.83 Screening for malignant neoplasm of colon 569928977 Z12.11 Essential hypertension 24891148 I10 Status: Treated and controlled Plan: Continue treatment Arleth Burrell MD [facility] [address] [place] [address] 06/17/2022 09:50:06 06/19/2022 16:15:29 Adult health examination 969975542 Z00.00 Status: up to date although will request prior EKG and CXR Screening for disorder 393747468 Z13.9 Smoking, Depression , Cognitive, Urinary Incontinen ce, Pain, and Fall Risk assessment s performed. Essential hypertension 23486465 I10 Status: Plan: Problem wi continuity of care 233340018 Z74.8 Previous medical records update requested and sent. Nocturia 340073899 R35.1 Dyslipidemia 838020130 E 78.5 Fatigue 47681677 R53.83 History of malignant neoplasm of prostate 140139313 Z85.46 Status: interrelat ionPlan: follow with PSA and follow up with Dr Jhonatan Godoy, [facility] Onc Cough 17738590 R05.9 Impaired g lucose tolerance 0640707 R73.02 [id number] Sanjeev Purcell NP [facility] - [place] [address] [place] [address] 08/21/2022 17:02:39 08/22/2022 19:18:18 Depression screening 798415764 Z13.31 Depression Screening: NEGATIVE. No further evaluation required. Screening for disorder 175075415 Z13.89 Health screening performed. See procedure section for screening results. Obesity 179416163 E66.09 Health impact of morbid obesity reviewed. Education provided. Weight loss opportunit ies reviewed. Body mass index 30+ - obesity 602480994 Z68.37 Plan outlined under Obesity Diagnosis. Neck pain 81696708 M54.2 please have imaging performed for baselinepl ease make and keep appt with PT for eval and mangement. Take medrol dose pack as directed. [id number] Anh Erickson MD [facility] [place] [address] [place] [address] 11/14/2022 12:44:13 11/14/2022 13:40:52 Trigger finger of left hand 3811210043 5486565 M65.30 [id number] Arleth Burrell MD [facility] [place] [address] [place] [address] 05/20/2023 11:08:45 05/21/2023 17:36:45 Dyslipidemia 392651635 E78.5 Essential hypertension 42328306 I10 Depression screening 171 421534 Z13.31 Depression Screening: NEGATIVE. No further evaluation required. Obesity 754389517 E66.09 Health impact of obesity reviewed. Education provided. Weight loss opportunit ies reviewed. Body mass index 30+ - obesity 015225787 Z68.36 Plan outlined under Obesity Diagnosis. Nocturia 539594370 R35.1 Fatigue 53773689 R53.83 Chronic at rial fibrillation 953105261 I48.20 Status: persistent although scheduled for cardiovers ion Plan: cardiovers ion scheduled for tomorrow as per Dr. Bolaños, cardiology Impaired f asting glycemia 792284412 R73.01 Status: Mild Plan: Continue diet and follow lab [id number] Arleth Burrell MD [facility] [address] [place] [address] 05/25/2024 11:37:59 05/31/2024 08:43:28 Adult health examination 358005029 Z00.00 Status: Request copy, colonoscop y Screening for disorder 826165444 Z13.9 Smoking, Depression , Cognitive, Urinary Incontinen ce, Pain, and Fall Risk assessment s performed. Mixed hyperlipidemia 267 397574 E78.2 Depression screening 171 556927 Z13.31 Depression Screening: NEGATIVE. No further evaluation required. Obesity 970206041 E66.09 Health impact of morbid obesity reviewed. Education provided. Weight loss opportunit ies reviewed. Body mass index 30+ - obesity 990016408 Z68.37 Plan outlined under Obesity Diagnosis. History of malignant neoplasm of prostate 650164157 Z85.46 Status: in remissionP catherine: follow with PSA and follow up with Dr Jhonatan Godoy, Rad Onc Paroxysmal atrial fibrillation 372468144 I48.0 Status: Controlled Plan: Follow with Cardiology as in progress Dyslipidemia 239738626 E 78.5 Essential hypertension 01618498 I10 Dysfunctio n of right eustachian tube 5515852940 170558 H69.91 Status: Mild, persistent - a new problemPla n: Fluticason e trial ENT eval Nocturia 385412706 R35.1 Fatigue 38505260 R53.83 Impaired f asting glycemia 040962777 R73.01 Health Concerns Section Related Observation LastModified by Organization Detai ls LastModified Time None Recorded Concern Status LastModified by Organization Details LastModified Time None Recorded Advance Directives Directive None Recorded Payers Insurance Date Sequence Insurance Name Policy Number Policy Gregory Covered Member ID Gregory Member ID Guarantor Name 05/25/2024 1 [place] Du Clements [id number] Du Clements 05/31/2024 2 [employer] (MEDICARE SUPPLEMENT) Du Clements [id number] Du Clements Notes Date Note Type Note Provider Name and Address Organization Details Recorded Time 3 text/html Medicare Pain and Opioid Use AssessmentReported by PatientOpioid EvaluationFor current level of pain: pain level noted in vitals section., patient reportsnote: see vitals section for pain and pain scale level. For addiction behavior screening, patient reportsthe patient has not experienced cravings for opioids over the last 12 month period.. Medicare Annual Wellness VisitReported by PatientSocial/Behavioral HistoryFor diet and nutrition, patient reportshealthy. For physical activity, patient reportsphysical activity since last year has __.andphysical activity status: __.Functional AbilityFor hearing, patient reportsno loss of hearing. For vision, patient reportsno vision problems. For activities of daily living, patient reportsable to bathe with limited or no assistance,able to contol urination and bowels,able to dress with limited or no assistance,able to feed self with limited or no assistance,able to get out of chair or bed with limited or no assistance,able to groom with limited or no assistance, andable to toilet with limited or no assistance. For instrumental activities of daily living, patient reportsable to do house work with limited or no assistance,able to grocery shop with limited or no assistance,able to manage medications with limited or no assistance,able to manage money with limited or no assistance,able to prepare meals with limited or no assistance, andable to use the phone with limited or no assistance. For home safety recommendations reviewed, patient reportsflooring hazards,using sunscreen,stair safety,use of seatbelts driving,working smoke/co detectors,support bars/railings in the bathroom/shower,good lighting in the home, andfire arms safety. Du Clements is a 72 year old [...] He exercises regularly. The patient is a former smoker (quit: 1998) and admits to occasional alcohol use (2-3 drinks weekly). He has not had routine labs checked recently. The patient [...] medical, surgical, social, and family history reviewed. Alreth Burrell MD [address], [place], [address], [facility] [employer] 06/17/2022 11:04:43 3 text/html Neck PainReported by Patient Patient is a 72 y/o/mpresents with neck [...] back-degeneration of lower back. Sanjeev Purcell NP [address], [place], [address], [facility] [employer] 08/22/2022 02:04:23 3 text/html HPI for HAND PAIN:LT Pain location:thumb Pain Level:3 Radiating:NO Duration:1-2 months Timing:Episodic Recent Injury Hx:NO Swelling :NO Bruising :NO Catching/locking :YES Worse with gripping:YES Numbess/tingling :NO History of surgery:NO History of cortisone shot:NO Physical Therapy Hx:NO Currently in Physical Therapy:NO Currently on prescription medication(s):NO ON OTC medication(s):YES ON TOPICAL medication(s):NO Tried Activity Modification:YES other: Anh Erickson MD [address], [place], [address], [facility] [employer] 11/14/2022 13:22:23 4 text/html ROS as noted in the HPI Du Clements is a 73 year old male who presents to the clinic for a medication refill. The patient's last MWV was on 06/17/22. Today, the patient states that he has been doing well overall and has no acute complaints to report today. Supposedly chronic Afib per Dr. Bolaños. He denies respiratory complications. He is having a cardioversion in the next week at [facility]. Arleth Burrell MD [address], [place], [address], [facility] [employer] 05/20/2023 12:05:38 5 text/html *STOP-BANG Sleep Apnea Screening [id number] by Patient *Medicare Wellness Evaluation HPI (v2)Reported by PatientMental Status EvaluationFor orientation, patient reportsperson - normal,place - normal, andtime - normal. For concentration and memory, patient reportsconcentrating - no concern,memory - no concern, andforgetting words - no concern. For speech/motor difficulties, patient reportsspeech - no concern,writing / fine manipulation - no concern, andgross movement (i.e. drinking from glass) - no concern.Social Behavior HistoryFor physical activity, patient reportsphysical activity: compared to previous year, has __.andphysical activity: current status __. For diet and nutrition, patient reportshealthyandvitamin supplementation reviewed and updated in medication list if pertinent.Functional AbilityFor vision, patient reportsno vision problems. For hearing, patient reportsno loss of hearing. For activities of daily living, patient reportsbowel care - no assistance,toileting - no assistance,bathing - no assistance,dressing - no assistance,feeding - no assistance,transferring - chair or bed no assistance, andgrooming - no assistance. For instrumental activities of daily living, patient reportsmedication management - no assistance,house work - no assistance,grocery shopping - no assistance,money management - no assistance,meal preparation - no assistance, andphone communication - no assistance. *Medicare Pain Screening and Opioid Use AssessmentReported by PatientPain Screening and Opioid Use AssessmentFor current treatment, patient reportsthe patient's current treatment does not include narcotics. For usage, patient reportsn/a: not on opioids.. For behavior, patient reportsn/a: not on opioids.. For context pain care, patient reportsn/a: not on opioids. Du Clements is a 74 year old male who presents to the clinic for MWV. The patient was last seen in the clinic on 06/17/2022 for MWV at which time routine labs were ordered. Amlodipine, atenolol, and triamterene were ordered for hypertension. Atorvastatin was ordered for dyslipidemia. CXR was ordered for cough. Today, he continues to follow with Dr. Godoy for history of prostate cancer. He notes that while in [place] he had a chest x-ray that showed a 2 mm foreign body overlying the right lung zone. He follows with cardiology for atrial fibrillation. He underwent ablation and returned to [facility] a week after. His custodian doubled his amiodarone and has been in normal rhythm since. He is currently on anticoagulants and plans to have a Watchman procedure in the near future. The patient has received Txyouaqyj47 (2016), Sygpvfrdv02 (2018), and Shingrix (2019) vaccinations. His last cologuard screening was in 2021 and is due for repeat in 2024. 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 The patient follows with a dentist regularly. He is up to date on recommended annual eye exams. He exercises regularly. The patient is a former smoker (quit 1998) and admits to occasional alcohol use. He has not had routine labs checked recently. Last MWV 06/2022. Last labs 05/2023. Patient is her for a Medicare Wellness Evaluation and to review any potential medical concerns, uncontrolled chronic medical conditions, and physical exam as indicated. Patients past medical, surgical, social, and family history reviewed. Arleth Burrell MD [address], [place], [address], [facility] - [facility], [facility] 05/30/2024 11:38:29
--- OUTSIDE RECORDS SUMMARY | 2025-04-09 10:53 | XMS_ITS | Continuity of Care Document ---
Author Organization [place] - [facility] [place] [facility] Address [address] [place] [address] Assessment Encounter Date Assessment Date Assessment LastModified by Organization Details LastModified Time 03/15/2025 03/15/2025 Pt is in permanent A. Fib Pt had Watchman's and need to stay on Eliquis for 3 moths. Reassured that his CP is not cardiac related and most likely MSK in etiology Amiodarone 200 mg has been DC'd. 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 Stop ASA 81 mg QD. Stay on Eliquis 2.5 mg BID. To go back on ASA after stopping Eliquis. Stay on Amlodipine 5 mg at bed time. Amlodipine/[place] zapril 5/20 mg in AM Triam HCTZ 37.5-25 mg 3 times a week. Atorvastatin 40 mg QD Myrbetriq 25 mg QD The goal is to keep BP less than 140/90 most of the times. All other meds as before Need to limit alcohol intake to not more than 2 drinks at a time. To keep up with his activity and to increase as he tolerates. Return in 3 months I thank you very much for this referral with best regards. Dr. Carolyne Bolaños MD, [facility]. CC: Dr. Burrell Signed electronically. . Total time spent for Lawrence M EMR 40 mins. [email or web address] Not available 03/15/2025 16:57:05 Plan of Treatment Reminders Order Date Submit Date Provider Last Modified By Organization Details Last Modified Time Details Appointments FOLLOW UP CARDIOLOG Y 2025 10:30A Lidya Bolaños MD Not available Not available Not available Lab None recorded. Referral None recorded. Procedures None recorded. Surgeries None recorded. Imaging None recorded. Medication Orders None recorded. Patient TargetsNo targets recorded. Patient InstructionsNo instructions recorded. Reason for Referral None Reported. Problems Name Problem SNOMED Code Status Onset Date Resolution Date Notes Provider Name and Address Organization Details Recorded Time Essential hypertension 83571330 Active Dorsita Génesis null, [place] - [facility] 17:12:15 Paroxysmal atrial fibrillation 973331695 Active Dorsita Génesis null, [place] [facility] 17:12:24 Atrial premature complex 223088227 Active Dorsita Génesis null, [place] [facility] 17:12:34 Chest pain 20531929 Active Dorsita Génesis null, [place] - [facility] 17:12:44 Fatigue 59634729 Active Dorsita Génesis null, [place] - [facility] 17:12:58 Low back pain 781828158 Active Dorsita Génesis null, [place] - [facility] 17:13:31 Problem Notes None recorded. Medical Equipment None Reported. Allergies Allergen ID Allergen Name Allergen Category Reaction Reaction Severity Criticality Documentation Date Start Date Code Code System Note Provider Name and Address Organization Details Recorded Time 15831 Product containin g penicilli n (product) medicatio n hives mild Not available 03/14/2025 89600 8001 SNOMED Dorsita Génesis null, [place] - [facility] 5 17:12:04 Medications Name Sig Start Date Stop Date Status Note LastModified by Organization Details LastModified Time atorvastati n 40 mg tablet Take 1 tablet every day by oral route. active Not Available Not Available No t Available doxycycline hyclate 100 mg capsule TAKE 1 CAPSULE BY MOUTH TWICE DAILY FOR 7 DAYS 03/15 completed Not Available Not Available Not Available amiodarone 200 mg tablet Take 1 tablet every day by oral route. 03/15 completed Not Available Not Available Not Available benzonatate 200 mg capsule TAKE 1 CAPSULE BY MOUTH THREE TIMES DAILY NEEDED FOR COUGH 03/15 completed Not Available Not Available Not Available prednisone 20 mg tablet TAKE 2 TABLETS BY MOUTH DAILY FOR 5 DAYS 03/15 completed Not Available Not Available Not Available amlodipine 2.5 mg tablet Take 1 tablet every day by oral route. 03/15 completed Not Available Not Available Not Available amlodipine 5 mg tablet Take 1 tablet every day by oral route. active Not Available Not Available No t Available Celebrex 200 mg capsule Take 1 capsule every day by oral route. 03/15 completed Not Available Not Available Not Available triamterene 37.5 mg-hydrochl orothiazide 25 mg tablet Take 1 tablet every day by oral route. active Not Available Not Available No t Available omeprazole 20 mg capsule,del ayed release Take 1 capsule every day by oral route. active Not Available Not Available No t Available albuterol sulfate HFA 90 mcg/actuati on aerosol inhaler INHALE 2 PUFFS BY MOUTH EVERY 4 TO 6 HOURS NEEDED FOR SHORTNESS OF BREATH OR WHEEZING 03/15 completed Not Available Not Available Not Available losartan 100 mg tablet Take 1 tablet every day by oral route. 03/15 completed Not Available Not Available Not Available metoprolol tartrate 25 mg tablet Take 1 tablet twice a day by oral route. active Not Available Not Available No t Available amlodipine- benazepril 5-20mg qd active Not Available Not Available Not Available Myrbetriq 25 mg tablet,exte nded release Take 1 tablet every day by oral route. active Not Available Not Available No t Available apixaban 5 mg tablet Take 1 tablet twice a day by oral route. active Not Available Not Available No t Available Eliquis 2.5 mg tablet Take 1 tablet twice a day by oral route. active Not Available Not Available No t Available Vitals Date Recorded Body height Body mass index (BMI) Body weight Heart rate Oxygen saturation Systolic And Diastolic Provider Name and Address Organization Details Last Updated DateTime 5 170.18 cm 38.8 kg/m2 974521. 91 g 86 /min 94 % 156/77 mm[Hg] Marilee Capps [facility] 12:01:26 Social History None recorded. Functional Status Question Answer Note LastModified by Organizat ion Details LastModified Time Do you use any illicit or recreational drugs? No Information not available 03/15/2025 What is your level of alcohol consumption? None Information not available 03/15/2025 Mental Status None recorded. Family History Nothing Reported. Medical History No medical history recorded. Past Encounters Encounter ID Performer Location Encounter Start Date Encounter Closed Date Diagnosis/Indication Diagnosis SNOMED-CT Code Diagnosis ICD10 Code Diagnosis IMO Codes Diagnosis Note [id number] Parker Bolaños MD [place] [facility] [address] [place] [address] 03/15/2025 11:27:14 03/15/2025 13:07:35 Chest pain 37330274 R07.9 81672899 Essential hypertension 01531780 I10 225584 Low back pain 229897279 M54.50 8074859310 Chronic at rial fibrillation 465550487 I48.20 131680 Health Concerns Section Related Observation LastModified by Organization Detai ls LastModified Time None Recorded Concern Status LastModified by Organization Details LastModified Time None Recorded Payers Encounter Date Sequence Insurance Name Policy Number Policy Gregory Covered Member ID Gregory Member ID Guarantor Name 03/15/2025 1 [place] Du Clements [id number] César Clements 03/15/2025 2 AARP (MEDICARE SUPPLEMENT) Du Clements [id number] César Clements Notes Date Note Type Note Provider Name and Address Organization Details Recorded Time 03/15/2025 text/html Patient is here for follow up of A. Fib HTNPt was noted to be in A. Fib since 08/13/24 and was given higher doses of Amiodarone which he did and claims that he is still in A. Fib. He denies any inducing factors like excessive alcohol intake caffeine. Pt was taken off of Amiodarone by Dr Kowalski. He had Watchman's in 11/2024. He is still waiting for his dental implant for his OSAPt is still on Eliquis 2.5 mg BID and has not had any bleeding issuesPt now c/o Pressure like feeling off and on over the upper part of anterior chest not associated with exertion. 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 Has been using a Oral device nightly.Patient claims that his SOB is better with any moderate exertion.Had cauterization for hemorrhoids in 01/2024 and has not had any bleeding.He is not walking like he used to do before on account of being sick and repeated Hospital stays for urinary procedures.He denies any more palpitations at rest and with any physical activity. Pt is not going to Gym 2-3 days a week does treadmill for 15-20 mins at 2.5 MPH at 5 % grade.He denies any history of CP, chest pressure, or any discomfort in the left side of the neck, left shoulder down the left arm either at rest or with exertion. No history of PND or orthopnea.Pt underwent AMY and External cardioversion 05/2023 successfully restoring Sinus rhythm He was on Amiodarone 200 mg QD had good control of arrhythmia until now.Risk factor for CAD; H/O smoking from 15 to 49 yrs old at 1 ppd , H/O hypertension, No diabetes, H/O hyperlipidemia.Fami ly History: None Parker Bolaños MD [address] [facility] [address], [place], [address], [facility], [facility] 03/15/2025 18:49:46
--- OUTSIDE RECORDS SUMMARY | 2025-04-09 10:53 | XMS_ITS | Data Portability ---
Author Organization [place] - [facility] - INPATIENT Address [address] [address] Assessment Encounter Date Assessment Date Assessment LastModified [...] on Amlodipine 5 mg at bed time. Amlodipine/Orrtanna zapril 5/20 mg in AM Triam HCTZ [...] with best regards. Dr. Carolyne Bolaños MD, [facility]. CC: Dr. Burrell Signed electronically. . Total time spent for E M EMR 40 mins. [email or web address] Not available [...] Address Organization Details Recorded Time Essential hypertension 36108031 Active Dorsita Génesis null, [place] - [facility] 5 17:12:15 Paroxysmal atrial fibrillation 482276216 Active Dorsita Génesis null, [place] - [facility] 17:12:24 Atrial premature complex 452033736 Active Dorsita Génesis null, [place] [facility] 17:12:34 Chest pain 48377030 Active Dorsita Génesis null, [place] [facility] 17:12:44 Fatigue 11186464 Active Dorsita Génesis null, [place] - [facility] 17:12:58 Low back pain 257981477 Active Dorsita Génesis null, [place] - [facility] 5 17:13:31 Problem Notes None recorded. Medical Equipment None Reported. Allergies Allergen ID Allergen Name Allergen Category Reaction Reaction Severity Criticality Documentation Date Start Date Code Code System Note Provider Name and Address Organization Details Recorded Time 16481 Product containin g penicilli n (product) medicatio n hives mild Not available 03/14/2025 38586 8001 SNOMED Dorsita Génesis null, [place] - [facility] 5 17:12:04 Medications Name Sig [...] Updated DateTime 5 170.18 cm 38.8 kg/m2 081927. 91 g 86 /min 94 % 156/77 mm[Hg] Marilee Capps [facility] 12:01:26 Social History None recorded. Functional Status [...] ICD10 Code Diagnosis IMO Codes Diagnosis Note [id number] Parker Bolaños MD [place] [facility] [address] [facility] [place] [address] 03/15/2025 11:27:14 03/15/2025 13:07:35 Chest pain 54836861 R07.9 94140313 Essential hypertension 82979081 I10 543185 Low back pain 594496510 M54.50 7085108465 Chronic at rial fibrillation 258882193 I48.20 805314 Health Concerns Section Related Observation LastModified by Organization Detai ls LastModified Time None Recorded Concern Status LastModified by Organization Details LastModified Time None Recorded Advance Directives Directive None Recorded Payers Insurance Date Sequence Insurance Name Policy Number Policy Gregory Covered Member ID Gregory Member ID Guarantor Name 03/15/2025 1 [place] Du Clements [id number] César Clements 03/15/2025 2 AARP (MEDICARE SUPPLEMENT) Du Clements [id number] César Clements Notes Date Note Type Note [...] hyperlipidemia.Fami ly History: None Parker Bolaños MD [address], [place], [address], [facility], [facility] 03/15/2025 18:49:46
[2025-04-09 10:57] VITALS: BP 154/74; PULSE 86; RESP 20; TEMP 36.3; O2SAT 97
--- NOTE | 2025-04-09 10:57 | ED.URI ---
HPI - URI/Sore Throat General Chief Complaint: Upper Respiratory Infection Stated Complaint: Upper Respiratory Infection Time Seen by Provider: 04/09/25 10:57 Source: patient Mode of arrival: ambulatory Limitations: no limitations History of Present Illness HPI Narrative: 75 y/o male with hx afib and prostate ca presented for c/o cough x1 week. Endorses cough is productive of brown blood streaked sputum. Denies sob, wheezing, n/v/d/f/c or lethargy. Taking Tussin and eliazar seltzer. Related Data Home Medications ?Medication ?Instructions ?Recorded ?Confirmed ?Last Taken ?Type amiodarone 200 mg tablet mg 05/04/24 Unknown History amlodipine 5 mg tablet mg 05/04/24 Unknown History amlodipine 5 mg-benazepril 20 mg cap 05/04/24 Unknown History capsule atorvastatin 40 mg tablet mg 05/04/24 Unknown History rivaroxaban 20 mg tablet (Xarelto) mg 05/04/24 Unknown History triamterene 37.5 tablet 05/04/24 Unknown History mg-hydrochlorothiazide 25 mg tablet Allergies Allergy/AdvReac Type Severity Reaction Status Date / Time No Known Allergies Allergy Verified 04/09/25 10:52 Review of Systems Review of Systems: CONSTITUTIONAL: Denies body aches, fever, chills, or sweats. EYES: Denies visual changes, redness, or discharge. ENT: Denies rhinorrhea, congestion, sore throat, or otalgia. CARDIOVASCULAR: Denies chest pain, palpitations, or edema. RESPIRATORY: Reports cough, sob, wheezing. GASTROINTESTINAL: Denies abdominal pain, nausea, vomiting, or diarrhea. SKIN: Denies rash, itching, or wounds. MUSCULOSKELETAL: Denies back pain, joint pain, or myalgia. NEUROLOGIC: Denies headache, numbness, tingling, or weakness. PSYCH: Denies depression or anxiety. All systems reviewed & are unremarkable except as noted in HPI and below PMFSH Comments At time of signature, I have reviewed and agree with nursing past medical, surgical, social and family history unless otherwise noted. Please see nursing chart for further information. There is no relevant family history pertinent to the presenting complaint Exam Narrative: GENERAL: Well-appearing, in no acute distress. EYES: EOMI. No redness or drainage. Conjunctivae normal. ENT: Mucous membranes pink and moist. No rhinorrhea. TMs normal bilaterally. Throat normal. Uvula midline. NECK: Normal AROM. Supple. CHEST: No respiratory distress. lungs clear to all walls. occasional moist health information administrator cough. HEART: irregularly irregular rhythm. No murmur appreciated. ABDOMEN: Soft, nontender, nondistended, normal active bowel sounds. EXTREMITIES: Normal range of motion. No edema. SKIN: Warm, dry, no rash. Capillary refill normal. Normal skin turgor. NEURO: Alert and oriented x3. Gait steady. PSYCH: Normal affect. Course Course Emergency Course: Patient is aware of diagnosis, understands and agrees to treatment plan. Anticipatory guidance given. Patient agrees to follow-up as directed and is aware of reasons to seek care at the emergency department. Portions of this record may have been created with voice recognition software Level of Care: Express Care Visit Vital Signs Vital signs: Vital Signs Temperature 97.4 F L 04/09/25 10:57 Pulse Rate 86 04/09/25 10:57 Respiratory Rate 20 04/09/25 10:57 Blood Pressure 154/74 H 04/09/25 10:57 Pulse Oximetry 97 04/09/25 10:57 Oxygen Delivery Room Air 04/09/25 10:57 Temperature 97.4 F L 04/09/25 10:57 Pulse Rate 86 04/09/25 10:57 Respiratory Rate 20 04/09/25 10:57 Blood Pressure 154/74 H 04/09/25 10:57 Pulse Oximetry 97 04/09/25 10:57 Oxygen Delivery Room Air 04/09/25 10:57 MDM - URI/Sore Throat MDM Narrative Medical decision making narrative: Discussed physical exam findings and CXR. Reviewed RX. Pt resides in [place] and will not be able to f/u with pcp this week. Advised supportive measures and signs/symptoms to go to the ER. Pt is appropriate for outpt treatment and f/u. Differential Diagnosis Differential diagnosis: Likely upper respiratory infection, sinusitis, viral infection, bronchitis, pharyngitis and other (Angioedema, perforation, asthma, pneumonia, PE, tension pneumothorax, cardiac tamponade PR, pericarditis, pleural effusion, CHF, bronchitis, cardiac arrhythmia) Imaging Data Radiologist's impression: Patient: Du Clements : 1950 MR#: [id number] Age: 75 Acct:[id number] Loc: [facility] ADM Date: 04/09/[address]: Ordering Physician: Kaela Ordaz APRN Date of Service: 04/09/25 Procedure(s): XR chest 2V Accession Number(s): [id number] Examination: XR chest 2V Comparison: 05/04/2024 Technique: PA and Lateral Findings: Cardiomediastinal silhouette normal size and configuration. Lungs clear. No acute bony abnormality. IMPRESSION: 1. No acute cardiopulmonary findings. Discharge Plan Discharge Clinical Impression: Bronchitis Patient Disposition: Home Condition: Stable Instructions: Antibiotic Form, Acute Bronchitis (ED) Additional Instructions: Acute bronchitis can be contagious because it is usually caused by infection with a virus or bacteria. It is usually for a few days but you can be contagious for up to one week. Avoid crowds until you do not have a fever and symptoms are improved Take medication as directed Recommend Flonase spray and Zyrtec (or Claritin/Isadora) over the counter Cough syrup may cause drowsiness; avoid driving or take it at night time. Tylenol every 8 hours as needed for pain Symptomatic treatment includes: rest, fluids, and increase humidity of the air at home. Follow up with your primary care provider as needed in 1 week Go to the ER for worsening symptoms or concerns Patient Language: Occitan Prescriptions: New benzonatate 200 mg capsule 200 mg PO TID PRN (Reason: cough) Qty: 20 0RF methylprednisolone [Medrol (Moncho)] 4 mg tablets,dose pack See Rx Instructions .ROUTE .COMPLEX Qty: 21 0RF Rx Instructions: orally per package directions amoxicillin-pot clavulanate 875-125 mg tablet 1 tablet PO Q12H 7 Days Qty: 14 0RF No Action atorvastatin 40 mg tablet amiodarone 200 mg tablet amlodipine 5 mg tablet amlodipine-benazepril 5-20 mg capsule triamterene-hydrochlorothiazid 37.5-25 mg tablet Xarelto 20 mg tablet doxycycline hyclate 100 mg capsule 100 mg PO BID 7 Days Qty: 14 0RF albuterol sulfate 90 mcg/actuation HFA aerosol inhaler 2 puff inhalation Q4-6H PRN (Reason: shortness of breath or wheezing) Qty: 8.5 0RF (DME) Aerochamber Plus Z Stat Spacer See Rx Instructions .Route Qty: 1 0RF Rx Instructions: As directed Follow-up/Referrals: PHYSICIAN,PIZZA HUT ASSISTANT [Primary Care Provider, Internal Medicine] Time of Disposition: 11:34
== END 2025-04-09 11:37 | disposition home or self-care (01) ==
PROVIDERS: Emergency Provider Nurse Practitioner Family
DX: J40 Bronchitis, not specified as acute or chronic (principal); I48.91 Unspecified atrial fibrillation; I10 Essential (primary) hypertension; E78.00 Pure hypercholesterolemia, unspecified; K21.9 Gastro-esophageal reflux disease without esophagitis; N40.0 Benign prostatic hyperplasia without lower urinary tract symptoms; M19.90 Unspecified osteoarthritis, unspecified site; Z79.01 Long term (current) use of anticoagulants
CPT/HCPCS: 71046; 99213; G0463